=== PATIENT | female | born 1955 | race Caucasian/White ===

== ENCOUNTER 2019-04-27 22:50 | Inpatient (IN) | payer MEDICAID, SELFPAY ==
[2019-04-27 22:50] VITALS: BP 136/94; PULSE 90; RESP 16; TEMP 36.5; O2SAT 98; BMI 17.9
--- NOTE | 2019-04-27 23:07 | CT_ITS ---
We are attempting to reach an attending provider to discuss findings. An addendum with communication details will be sent when the communication is complete. HISTORY: ABD PAIN, N/V TECHNIQUE: Helically acquired images were obtained of the abdomen and pelvis following the intravenous administration of 100 ml of Isovue 300 Iodinated contrast. 2D reformats. Oralcontrast was administered. A radiation dose optimization technique was used for this scan. COMPARISON: None FINDINGS: # of images incl. paperwork: 342 LUNG BASES: Groundglass opacity with evidence of lung destruction, interstitial prominence, and basilar air space disease left greater than right. It is also present within the lingula. The distal esophagus is distended with oral contrast and gas. Small hiatal hernia CT abdomen: There are only 4 nonrib-bearing lumbar vertebral bodies. The lowest thoracic ribs have tiny central ribs. There may be some mild lumbarization of the S1 vertebral body. The gallbladder has been resected. Intra-and extrahepatic biliary ductal dilatation. Liver, spleen, pancreas, and adrenal glands, are normal. There is a calcification medially within both left and right kidneys without hydronephrosis. In this patient with severe calcific atherosclerotic plaque within the abdominal aorta I believe these calcifications are likely arterial and not urothelial.. The aorta is severely disease with circumferential calcific plaque, without camelia aneurysm or dissection. CT pelvis: Pelvic ascites is present. The the uterus is not enlarged. The appendix is not dilated. It does contain some appendicoliths. Series 2 image 78. The bladder is normal. Abnormal air-fluid levels and distention of small bowel. There is disease within the terminal ileum. Some of the distal small bowel loops, however, are not as distended as the more proximal small bowel loops. I cannot perceived the transition point. There is liquid gas and stool within the sigmoid colon and rectum. There is stool through most of the rectum. The transition between distended fluid-filled loops of small bowel, nondistended small bowel with some bowel wall thickening is perhaps best perceived on the coronal series, series 601, image 54 this corresponds to right around series 2, image 76. CT/Abdomen/Pelvis WITH Contrast IMPRESSION: Evidence for at least a partial distal small bowel obstruction. I can find the transition point, but I cannot define an etiology for the transition. Distended stomach with oral contrast and gas refluxing through a small hiatal hernia into the esophagus with distention of the esophagus with contrast and gas suggestive of reflux disease. Severe atherosclerotic disease. Basilar lung disease with interstitial prominence, likely interstitial pulmonary edema, but possibly more than just atelectasis and edema, could be some basilar pneumonia. Individualized dose optimization techniques were used for this CT. at 0218 Reported and signed by: Silviano Thorpe MD Electronically Signed: Silviano Thorpe MD at 2:17 EDT Tel , Service support ,
--- NOTE | 2019-04-27 23:08 | ED.VIS.GEN ---
History of Present Illness Chief Complaint: Abd Pain Narrative: This patient is a 64-year-old female who presents with abdominal pain. She initially developed nausea and vomiting about 4 PM. She reports her vomiting is severe. This is nonbloody. She then began to develop right-sided abdominal pain around 8:30 PM. Her pain is now diffuse but is worse in the mid right abdomen. She describes this as squeezing. She reports her pain is severe. No diarrhea. No urinary symptoms. She does report sweats. No history of prior similar symptoms and no recent illness. She has had a prior cholecystectomy. Past Medical History - Allergies and Home Meds Allergies/Adverse Reactions: Allergies codeine Allergy (Verified 04/27/19 22:52) Anaphylaxis Penicillins [PCN] Allergy (Verified 04/27/19 22:52) Anaphylaxis Past Medical History: - - COPD, history of TIA, hypertension, hyperlipidemia, gastroesophageal reflux Surgical History: cholecystectomy Smoking Status: Current every day smoker Review of Systems All systems negative except as indicated Gastrointestinal: Reports: Abdominal pain, Nausea, Vomiting. Denies: Diarrhea, Constipation Physical Exam Vital Signs/Narrative: Vital Signs Temp Pulse Resp BP Pulse Ox 04/27/19 22:50 97.7 F L 90 16 136/94 H 98 Head: Normocephalic Eyes: EOMI ENT: Moist mucous membranes Neck: Supple Cardiovascular: Regular rate, Regular rhythm Respiratory: No distress, CTA bilaterally Abdomen: Soft, Nondistended, - - Patient has diffuse abdominal tenderness but this is worse when she has no guarding she has no rebound her pain is above McBurney's point. Negative for: Nontender Neurological: Alert Psychological: Normal affect Diagnostic/Tx/Re-eval - Medical Decision Making Patient was treated with IV fluids, morphine, Zofran. On reevaluation her abdomen remains soft. Her pain is resolved except with palpation. She has had no vomiting while here and her nausea is resolved. Labs are notable for white count of 15.7 and hemoglobin is elevated she is likely dehydrated/hemoconcentrated. Sodium is 128. CT of the abdomen and pelvis shows a distal small bowel obstruction with focal transition point without clear etiology. On my review of images chronic does appear distended. Patient will be given an aerosolized lidocaine treatment and an NG tube will be placed. I did speak to surgery Dr. Quach who will see the patient in consultation and spoke to the hospitalist Dr. Wright who agrees to admit. ED Disposition - Plan for ED Patient: Diagnosis: Small bowel obstruction
[2019-04-27] MEDS: 0.9% Normal Saline 1,000 ML 1000 ML IV (23:29)
[2019-04-27] MEDS: Ondansetron 4 MG/2 ML Vial IV (23:30)
[2019-04-27] MEDS: Morphine 4 MG/ML Syringe IV (23:30)
[2019-04-27 23:34] LABS: ALB/GLOB Ratio 0.8 RATIO (0.9-2.4); AST(SGOT) 23 U/L (15-37); Alanine Aminotransfer ALT/SGPT 27 U/L (13-56); Albumin, Serum 4.5 g/dL (3.2-5.0); Alkaline Phosphatase 151 U/L (45-117); Anion Gap 14 (5-15); BUN 9 mg/dL (7-18); BUN/Creat Ratio 7.3 RATIO (10-20); Calcium,Total 11.1 mg/dL (8.5-10.1); Chloride 89 mmol/L (98-107); Creatinine, Serum 1.23 mg/dL (0.55-1.02); EST Glomerular Filtration Rate 47 mL/min (>60); Est Glom Filt Rate - Afr Amer 57 mL/min (>60); Estimated Creatinine Clearance 30.84 ml/min; Globulin 5.9 g/dL (2.2-4.2); Glucose 169 mg/dL (74-106); Lipase 87 U/L (73-393); Potassium 4.5 mmol/L (3.5-5.1); Protein, Total 10.4 g/dL (6.4-8.2); Sodium Level 128 mmol/L (136-145)
[2019-04-27 23:36] LABS: Absolute Lymphocyte Count 1.22 X10^3/ul (0.83-4.51); Absolute Neutrophil Count 13.8 X10^3/uL (2.0-7.7); Basophil# 0.03 X10^3/uL; Basophil% 0.2 % (0-1); Eosinophil# 0.01 X10^3/uL; Eosinophils% 0.1 % (0-5); Hematocrit 52.2 % (37-47); Lymphocyte # 1.22 X10^3/ul (4.0); Lymphocyte % 7.8 % (19-41); Mean Corp Hgb Conc 35.4 g/gl (32-36); Mean Corpuscular Hgb 30.9 pg (27.0-32.0); Mean Corpuscular Volume 87.3 fL (81-99); Mean Platelet Vol. 9.6 fl (6.2-12.0); Monocyte# 0.62 X10^3/uL; Neutrophil # 13.76 X10^3/uL (2.7-7.7); Neutrophil % 87.6 % (47-70); Platelet Count 424 K/mm3 (150-450); RBC Distribution Width CV 13.2 % (11.6-14.6); RBC Distribution Width SD 41.8 fl (35.1-43.9); Red Blood Count 5.98 M/mm3 (4.2-5.4); White Blood Count 15.7 K/mm3 (4.4-11.0)
[2019-04-27 23:43] LABS: Hemoglobin 18.5 g/dl (12.0-15.0); POSITIVE COUNT NO; POSITIVE DIFFERENTIAL NO; POSITIVE MORPHOLOGY NO
[2019-04-28] VITALS (11 sets, daily range): BP systolic 114–131; BP diastolic 57–75; PULSE 64–90; RESP 16–18; TEMP 36.4–37.1; O2SAT 81–99; BMI 19.8
[2019-04-28 02:20] LABS: Bacteria 0 SEEN /hpf (None Seen); Mucous, Urine 0 SEEN /hpf (<or=2+); Red Blood Cells-Urine 0 SEEN /hpf (0-5)
--- NOTE | 2019-04-28 02:25 | RAD_ITS ---
HISTORY: NG tube placement. This study was the first of 2 images obtained. Comparison studies a CT scan from a little bit early in the morning. Findings: The nasogastric tube tip is within stomach. The proximal sidehole is within the distal esophagus. Both kidneys are excreting contrast. Urinary bladder is beginning to fill. Cholecystectomy clips. Distention of small bowel with gas. RAD/Abdomen Single View (Portable) IMPRESSION: This is the first of 2 images. This image demonstrates the proximal most sidehole within the distal esophagus. at 0323 Reported and signed by: Silviano Thorpe MD Electronically Signed: Silviano Thorpe MD at 3:22 EDT Tel , Service support ,
--- NOTE | 2019-04-28 02:25 | PCM.HP.STD ---
Problem List (1) Small bowel obstruction Status: Acute (2) SHIV (acute kidney injury) Status: Acute (3) Hyponatremia Status: Acute (4) HTN (hypertension) Status: Chronic Qualifiers: Hypertension type: essential hypertension Qualified Code(s): I10 - Essential (primary) hypertension (5) HLD (hyperlipidemia) Status: Chronic Qualifiers: Hyperlipidemia type: unspecified Qualified Code(s): E78.5 - Hyperlipidemia, unspecified (6) CHF (congestive heart failure) Status: Chronic Qualifiers: Heart failure type: unspecified Heart failure chronicity: chronic Qualified Code(s): I50.9 - Heart failure, unspecified (7) COPD (chronic obstructive pulmonary disease) Status: Chronic Qualifiers: COPD type: unspecified COPD Qualified Code(s): J44.9 - Chronic obstructive pulmonary disease, unspecified (8) Tobacco use Status: Chronic (9) TIA (transient ischemic attack) Status: Chronic History of Present Illness Date of Admission: 04/28/19 Chief Complaint: Abdominal pain, nausea, emesis The patient is a 64 y/o F w/ PMHx: TIA, CHF Unclear type, Chronic COPD, Tobacco use, HTN, HLD who presents to the [facility] ED on 04/28/19 with history of onset nausea, emesis starting at 4 pm with onset then severe 10/10 sharp abdominal pain, specifically mid right abdomen, not improving prompting ED presentation. Work-up in the ED included T 97.7, heart rate 90, BP 136/94, respiratory rate 16, 90% on room air, CBC with W BC 15.7, hemoglobin 18.5, platelet 424 with left shift, CMP with sodium 128, chloride 89, BUN/creatinine 9/1.23, glucose 169, calcium 11.1, alk phos 151, lipase 87, urinalysis not marked appearing, CT abdomen pelvis with evidence of a partial distal small bowel obstruction with a transition point with a distended stomach with oral contrast and gas refluxing through a small hiatal hernia and the esophagus with distention of the esophagus with contrast and gas suggestive of also reflux disease, severe atherosclerotic disease, basilar lung disease with interstitial prominence likely atelectasis given patient presentation with only abdominal complaints. In the ED patient administered inhaled lidocaine with placement of NG tube, morphine 4 mg IV x1, Zofran 4 mg IV x1 in addition to normal saline. General surgeon was consulted and discussed case per ED physician with agreement of placement of NG tube and admission for further evaluation and treatment. Past Medical History Past Medical History (Chronic Problems): Chronic Problems HTN (hypertension) (Chronic) HLD (hyperlipidemia) (Chronic) CHF (congestive heart failure) (Chronic) COPD (chronic obstructive pulmonary disease) (Chronic) Tobacco use (Chronic) TIA (transient ischemic attack) (Chronic) Allergies codeine Allergy (Verified 04/27/19 22:52) Anaphylaxis Penicillins [PCN] Allergy (Verified 04/27/19 22:52) Anaphylaxis Surgical History: cholecystectomy, - - Cholecystectomy, BLTL. Psychiatric History: No pertinent psych hx BURSAR History: No pertinent BURSAR history Lives: Spouse/ Significant Other - Lives with her and grandson. Smoking Status: Current every day smoker - 1/2 pack/day cigarette tobacco usage. Tobacco Use: Cigarettes Alcohol: None Drugs: None - *Family History Maternal History Items: - - Patient notes a maternal family history of breast cancer. Paternal History Items: - - Patient notes a paternal family history of heart disease, of an [place]. Review of Systems Constitutional: Reports: Anorexia, Malaise, Weakness, Fatigue. Denies: Chills, Fever, Weight Change HEENT: Denies: Head Aches, Sinus Congestion, Sinus Drainage Cardiovascular: Denies: Chest Pain, Palpitations Respiratory: Reports: Shortness of breath upon exertion. Denies: Cough, Shortness of breath at rest, Sputum production Gastrointestinal: Reports: Abdominal Pain, Nausea, Vomiting Genitourinary: Denies: Dysuria Musculoskeletal: Denies: Joint Pain, Joint Tenderness Skin: Denies: Rash, Wounds Neurological: Denies: Numbness, Tingling, Focal weakness Psychiatric: Denies: Anxiety, Depression, Homicidal Ideations, Suicidal Ideations Hematologic/ Lymphatic: Denies: Easy Bruising, Easy Bleeding VTE Information - Inpt Only VTE Present on Admission: No VTE Mechan Device Prophylaxis: SCD's VTE Pharm Prophylaxis ordered?: Yes Patient Problems: Active and Suspected Problems Small bowel obstruction (Acute) SHIV (acute kidney injury) (Acute) Hyponatremia (Acute) Subjective: Seated upright in ED bed, fatigued appearance, recently completed breathing treatment. Objective: Physical Examination: General: awake, alert, oriented x 3 and cooperative, seated upright in bed in no apparent distress, notes still ongoing mid to right upper quadrant discomfort but improved since initial presentation, only with palpation. Skin: normal color, turgor, no icterus, cyanosis. HEENT: AT/NC, EOMI, PERRLA, dry MM, no carotid bruits or JVD noted. Lungs: Diminished breath sounds throughout, greater bases, appropriate moderate effort, no rales, ronchi or wheezing. Heart: Regular rate and rhythm; no gallop, rub audible. Abdomen: soft, notable mid and right upper quadrant primarily abdominal discomfort, no rebound or specific guarding, not markedly distended, diminished bowel sounds, difficult to assess HSM secondary to acute presentation. Extremities: no cyanosis, clubbing, or edema. Neurological: patient awake, alert, oriented x 3; cognitive function intact; pupils equally reactive to light and accomodation; cranial nerves II-XII grossly normal, moving all 4 extremities, no focal deficits, strength moderately to severely global degree secondary to acute presentation. Psychiatric: affect appears fatigued, no acute evidence of depressive or anxiety feelings. - Physical Exam Vital Signs Temp Pulse Resp BP Pulse Ox 97.7 F L 90 16 136/94 H 98 04/27/19 22:50 04/27/19 22:50 04/27/19 22:50 04/27/19 22:50 04/27/19 22:50 Oxygen Delivery Method Room Air Weight: 92 lb Body Mass Index (BMI) 17.9 Laboratory Tests Past 24 Hrs 04/27/19 04/27/19 04/28/19 23:00 23:00 02:15 WBC 15.7 H RBC 5.98 H Hgb 18.5 H* Hct 52.2 H MCV 87.3 MCH 30.9 MCHC 35.4 RDW 13.2 RDW Differential 41.8 Plt Count 424 MPV 9.6 Immature Gran % (Auto) 0.300 Neut % (Auto) 87.6 H Lymph % (Auto) 7.8 L [place] % (Auto) 4.0 Eos % (Auto) 0.1 Baso % (Auto) 0.2 Absolute Neuts (auto) 13.8 H Absolute Lymphs (auto) 1.22 Total Counted Not Reportable Diff Path Review May foll Sodium 128 L Potassium 4.5 Chloride 89 L Carbon Dioxide 25.0 Anion Gap 14 BUN 9 Creatinine 1.23 H Estim Creat Clear Calc 30.84 Est GFR (MDRD) Af Amer 57 L Est GFR (MDRD) Non-Af 47 L BUN/Creatinine Ratio 7.3 L Glucose 169 H Calcium 11.1 H Total Bilirubin 0.50 AST 23 ALT 27 Alkaline Phosphatase 151 H Total Protein 10.4 H Albumin 4.5 Globulin 5.9 H Albumin/Globulin Ratio 0.8 L Lipase 87 Urine Color Pending Urine Clarity Pending Urine pH Pending Ur Specific [place] Pending Urine Protein Pending Urine Glucose (UA) Pending Urine Ketones Pending Urine Occult Blood Pending Urine Nitrite Pending Urine Bilirubin Pending Urine Urobilinogen Pending Ur Leukocyte Esterase Pending Urine RBC Pending Urine WBC Pending Ur Squamous Epith Cells Pending Urine Bacteria Pending Urine Mucus Pending Assessment/Plan All Active Problems Small bowel obstruction (Acute) SHIV (acute kidney injury) (Acute) Hyponatremia (Acute) The patient is a 64 y/o F w/ PMHx: TIA, CHF Unclear type, Chronic COPD, Tobacco use, HTN, HLD who presents to the [facility] ED on 04/28/19 with history of onset nausea, emesis starting at 4 pm with onset then abdominal pain, specifically mid right abdomen, not improving prompting ED presentation. (1) Abdominal pain, nausea, emesis w/ SBO: In the ED work-up included CT A/P w/ evidence SBO, CBC w/ elevated WBC with evidence hemoconcentration secondary to dehydration. Will admit to MS, maintain on IVFs, continue NGT to suction, strict I&Os, IV pain/anti-emetics PRN, serial KUB as needed to montior bowel function, Famotidine IV, maintain NPO on bowel rest. General surgery Dr. Quach consulted. (2) Hyponatremia, hypovolemic: Admission sodium 128, poor oral intake with nausea and emesis secondary to #1, continue aggressive hydration, repeat BMP in a.m. (3) Suspected Acute kidney injury: Secondary to acute presentation, #1. Admission BUN/Cr 07/24.23, unclear baseline but given presentation, hyponatremia suspected acute, repeat BMP in AM. If no improvement would plan FeNa assessment. (4) Hyperglycemia: Admission glucose 169, possibly stress response, continue to monitor. (5) Hypercalcemia: Admission Ca 11.1, given presentation with dehydration will continue to aggressively hydrate and repeat BMP in AM, if remains elevated will obtain ICa. (6) Chronic COPD: ATC duonebs, PRN albuterol, HOB, IS parameters. (7) Tobacco Abuse: Encouraged cessation, inpatient consultation per RT, NR if desired. (8) Hypertension: Hold oral regimens, PRN hydralazine. (9) CHF, Unclear type: Holding oral regimens, resume once oral intake allowed including BP regimen, HLD regimen, ASA. (10) Hx TIA: Holding oral regimens, resume once oral intake allowed including BP regimen, HLD regimen, ASA. Elevated BS, trend and further evaluate if remains elevated, possibly secondary to strain. (11) Hyperlipidemia: Holding oral regimens. (12) GERD: IV Famotidine. (13) DVT prophylaxis: SCDs, renally dosed lovenox. Code Visit Inpatient E&M: 17708 Init Hosp L3
[2019-04-28 02:27] LABS: Color, Urine Yellow (Yellow); Glucose, Dipstick Normal (Normal); Ketone-Dipstick Negative (Negative); Leukocyte Esterase-Dipstick 25 /ul (Negative); Nitrite-Dipstick Negative (Negative); Occult Blood-Urine 10 /ul (Negative); Protein-Dipstick 100 mg/dl (Negative); Urine Bilirubin Dipstick Negative (Negative); Urine Clarity Clear (Clear); Urine Urobilinogen Normal (Normal)
[2019-04-28 02:28] LABS: Squamous Epithelial Cells - UA 0-5 SEEN /hpf (5-10); White Blood Cells 0-5 SEEN /hpf (0-5)
[2019-04-28] MEDS: Lidocaine 4% 5 ML Ampul 2 ML INHALATION (02:34)
--- NOTE | 2019-04-28 03:02 | RAD_ITS ---
HISTORY: NG tube placement. Most recent comparison study is from minutes earlier. Before that there is a CT scan of the abdomen and pelvis from just over an hour earlier. Findings: The nasogastric tube has been advanced. The tip of the tube proximal sidehole about under the diaphragm, likely within the gastric cardia. Both kidneys continue to excrete contrast to nondilated systems. Surgical clips are present within the gallbladder fossa. Distended loops of small bowel remain. Surgical clips are present within the pelvis. The urinary bladder is distended with excreted contrast. Basilar fibrotic lung disease persists. The heart is not enlarged. RAD/Abdomen Single View IMPRESSION: Advancement of esophagogastric tube so that now but the tip in the proximal sidehole are below the diaphragm, likely within the stomach. at 0322 Reported and signed by: Silviano Thorpe MD Electronically Signed: Silviano Thorpe MD at 3:21 EDT Tel , Service support ,
[2019-04-28] MEDS: 0.9% Normal Saline 1,000 ML 125 ML IV ×2 (04:42→13:22)
[2019-04-28] MEDS: 0.9% NaCl Peripheral Flush Adult/Peds IV ×2 (05:32→05:57)
[2019-04-28] MEDS: Ondansetron 4 MG/2 ML Vial IV (05:55)
[2019-04-28] MEDS: Morphine 2 MG/ML Syringe IV ×4 (05:56→20:20)
--- NOTE | 2019-04-28 06:00 | CON.PCM_ITS ---
Problem List (1) Small bowel obstruction Status: Acute Reason for Consult Date of Consultation: 04/28/19 History of Present Illness: The patient is a 64 year old F who I have been asked to see by Dr. Brittani Wright via her emergency room admission. Written compromise surgical consult and recommendations regarding acute small bowel obstruction will be left in the electronic records. This is a 64-year-old female. She had acute onset of abdominal pain nausea and vomiting yesterday at 4 PM. She presented to the emergency room. White blood cell count was elevated to 15.7 with a markedly elevated hemoglobin of 18.5 hematocrit 52.2 platelet count 424,000. 87% neutrophils. Her graph she was hyponatremic with a sodium of only 128. Chloride 89. Potassium 4.5. BUN was 9 and creatinine 1.23. Calcium elevated 11.1. Glucose elevated at 169. Ocular phosphatase 151. Total protein 10.4. Her urine had a specific gravity 1.01. She had a CT scan performed. There was felt to be evidence for at least a partial distal small bowel obstruction. Transition point is felt to been identified between distended fluid-filled loops of small bowel and nondistended small bowel with some small bowel wall thickening. Etiology not clear. There is distended stomach and distention of the esophagus. There is severe atherosclerotic disease. In addition there is bibasilar lung disease with interstitial prominence likely interstitial pulmonary edema. Possible bibasilar pneumonia. The patient states that she has recently moved to this area. She states that June 2018 she was hospitalized in [place] for acute congestive heart failure and pulmonary edema. She said she has had at least 2 heart catheterizations. She states that she does not have any stents in place but that she did have angioplasty. She is a lifelong cigarette smoker and she continues to smoke cigarettes. She states that she has both heart and lung disease. She requires chronic oxygen at night daily Currently she states that her pain is improved over yesterday but that she is still feeling nauseated. Apparently there was difficulties actually getting the NG tube to function due to wall suction device malfunctioning so it sounds like she has not been on adequate NG tube suction since her admission to the floor. Abdominal x-ray taken at 3 AM showed distended loops of small bowel remaining. Surgical clips present within the pelvis. Past Medical History Past Medical History (Chronic Problems): Chronic Problems HTN (hypertension) (Chronic) HLD (hyperlipidemia) (Chronic) CHF (congestive heart failure) (Chronic) COPD (chronic obstructive pulmonary disease) (Chronic) Tobacco use (Chronic) TIA (transient ischemic attack) (Chronic) Allergies codeine Allergy (Verified 04/27/19 22:52) Anaphylaxis Penicillins [PCN] Allergy (Verified 04/27/19 22:52) Anaphylaxis Surgical History: cholecystectomy, - - Cholecystectomy, BLTL. 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 Smoking Status: Current every day smoker Tobacco Use: Cigarettes Alcohol: None Drugs: None - *Family History Maternal History Items: - - Patient notes a maternal family history of breast cancer. Paternal History Items: - - Patient notes a paternal family history of heart disease, of an [place]. Review of Systems Constitutional: Denies: Anorexia HEENT: Denies: Difficulty Swallowing Cardiovascular: Denies: Chest Pain Respiratory: Reports: Shortness of Breath Gastrointestinal: Reports: Abdominal Pain, - - Last flatus was yesterday midday. Denies: Hematochezia, Melena Endocrine: Denies: Change in Body Habitus Patient Problems: Active and Suspected Problems Small bowel obstruction (Acute) SHIV (acute kidney injury) (Acute) Hyponatremia (Acute) Small bowel obstruction (Acute) - Physical Exam General: Alert, Oriented x3, Cooperative, No apparent distress, - - Emesis bag is closed by Patient appears to be far older than stated age Neck: Supple Lungs: Clear to auscultation, - - Nasal prong oxygen in place Cardiovascular: Regular rate, Regular Rhythm Abdomen: Soft - Minimal discomfort to palpation right mid abdomen, infrequent nonspecific bowel sounds, no focal mass, no rebound, no guarding Extremities: No Calf Tenderness Psych/Mental Status: Normal Affect Vital Signs Temp Pulse Resp BP Pulse Ox 98.3 F 79 16 121/75 H 96 04/28/19 04:15 04/28/19 04:15 04/28/19 04:15 04/28/19 04:15 04/28/19 04:15 Oxygen Flow Rate (L/min) 3 Oxygen Delivery Method Room Air Weight: 101 lb 3.075 oz Body Mass Index (BMI) 19.8 Laboratory Tests Past 24 Hrs 04/27/19 04/27/19 04/28/19 23:00 23:00 02:15 WBC 15.7 H RBC 5.98 H Hgb 18.5 H* Hct 52.2 H MCV 87.3 MCH 30.9 MCHC 35.4 RDW 13.2 RDW Differential 41.8 Plt Count 424 MPV 9.6 Immature Gran % (Auto) 0.300 Neut % (Auto) 87.6 H Lymph % (Auto) 7.8 L [place] % (Auto) 4.0 Eos % (Auto) 0.1 Baso % (Auto) 0.2 Absolute Neuts (auto) 13.8 H Absolute Lymphs (auto) 1.22 Total Counted Not Reportable Diff Path Review May foll Sodium 128 L Potassium 4.5 Chloride 89 L Carbon Dioxide 25.0 Anion Gap 14 BUN 9 Creatinine 1.23 H Estim Creat Clear Calc 30.84 Est GFR (MDRD) Af Amer 57 L Est GFR (MDRD) Non-Af 47 L BUN/Creatinine Ratio 7.3 L Glucose 169 H Calcium 11.1 H Total Bilirubin 0.50 AST 23 ALT 27 Alkaline Phosphatase 151 H Total Protein 10.4 H Albumin 4.5 Globulin 5.9 H Albumin/Globulin Ratio 0.8 L Lipase 87 Urine Color Yellow Urine Clarity Clear Urine pH 6.0 Ur Specific [place] 1.010 Urine Protein 100 H Urine Glucose (UA) Normal Urine Ketones Negative Urine Occult Blood 10 H Urine Nitrite Negative Urine Bilirubin Negative Urine Urobilinogen Normal Ur Leukocyte Esterase 25 H Urine RBC 0 SEEN Urine WBC 0-5 SEEN Ur Squamous Epith Cells 0-5 SEEN Urine Bacteria 0 SEEN Urine Mucus 0 SEEN Assessment/Plan All Active Problems Small bowel obstruction (Acute) SHIV (acute kidney injury) (Acute) Hyponatremia (Acute) Small bowel obstruction (Acute) 64-year-old female with findings consistent with small bowel obstruction. She has had a previous lap scopic cholecystectomy and a previous tubal ligation. Likely adhesive disease. Unfortunately her cardiopulmonary disease places her at significantly increased risk. She is not able to describe for me her episode of hospitalization with severe congestive heart failure and fluid overload. The patient does not appear to require surgical intervention at this immediate moment but I am not sure that this is going to solve with conservative management. Again it is of note that the NG tube has not been functioning since her presentation to the floor. We will encourage mobilization. We will consider Gastrografin per the NG tube. Very careful clinical follow-up. Electrolyte correction is being pursued. Markedly hyponatremic. Markedly hemoconcentrated likely in large part due to her chronic pulmonary disease and ongoing tobacco use. She has had notably increased risk for DVT and PE. Use of incentive spirometer mobilization strongly encouraged. We will follow with you. Rafael Quach M.D., F.A.C.S.
[2019-04-28 06:27] LABS: Absolute Lymphocyte Count 1.34 X10^3/ul (0.83-4.51); Absolute Neutrophil Count 8.5 X10^3/uL (2.0-7.7); Basophil# 0.02 X10^3/uL; Basophil% 0.2 % (0-1); Hematocrit 42.6 % (37-47); Lymphocyte # 1.34 X10^3/ul (4.0); Lymphocyte % 12.5 % (19-41); Mean Corp Hgb Conc 35.2 g/gl (32-36); Mean Corpuscular Hgb 30.2 pg (27.0-32.0); Mean Corpuscular Volume 85.7 fL (81-99); Mean Platelet Vol. 9.5 fl (6.2-12.0); Monocyte# 0.78 X10^3/uL; Monocyte% 7.3 % (0-10); Neutrophil % 79.6 % (47-70); Platelet Count 376 K/mm3 (150-450); RBC Distribution Width CV 13.1 % (11.6-14.6); RBC Distribution Width SD 40.2 fl (35.1-43.9); Red Blood Count 4.97 M/mm3 (4.2-5.4); White Blood Count 10.7 K/mm3 (4.4-11.0)
[2019-04-28 06:30] LABS: POSITIVE COUNT NO; POSITIVE DIFFERENTIAL NO; POSITIVE MORPHOLOGY NO
[2019-04-28] MEDS: Ipratropium/Albuterol Sulfate 3 ML AMPUL.NEB INHALATION ×3 (06:52→19:00)
[2019-04-28 07:03] LABS: ALB/GLOB Ratio 0.8 RATIO (0.9-2.4); AST(SGOT) 19 U/L (15-37); Alanine Aminotransfer ALT/SGPT 19 U/L (13-56); Albumin, Serum 3.3 g/dL (3.2-5.0); Alkaline Phosphatase 109 U/L (45-117); Anion Gap 10 (5-15); BUN 9 mg/dL (7-18); BUN/Creat Ratio 11.4 RATIO (10-20); Calcium,Total 8.9 mg/dL (8.5-10.1); Chloride 99 mmol/L (98-107); Creatinine, Serum 0.79 mg/dL (0.55-1.02); EST Glomerular Filtration Rate 78 mL/min (>60); Est Glom Filt Rate - Afr Amer 95 mL/min (>60); Estimated Creatinine Clearance 52.36 ml/min; Globulin 4.3 g/dL (2.2-4.2); Glucose 105 mg/dL (74-106); Potassium 3.7 mmol/L (3.5-5.1); Protein, Total 7.6 g/dL (6.4-8.2); Sodium Level 134 mmol/L (136-145)
[2019-04-28 07:34] LABS: Lactic Acid 0.5 mmol/L (0.4-2.0)
--- NOTE | 2019-04-28 08:00 | RAD_ITS ---
STUDY: X-RAY - ABDOMEN/PELVIS REASON FOR EXAM: Female, 64 years old. History of small bowel obstruction. TECHNIQUE: Single AP view of the abdomen / pelvis. COMPARISON: Comparison is made with prior study dated April 28, 2019 at 2:57 AM. FINDINGS: A nasogastric tube is seen with the tip in the body of the stomach. Moderate amount of fecal material is seen throughout the colon. Mildly dilated small bowel loop in the central abdomen. Contrast is seen within a distended urinary bladder. This evidence of prior tubal ligation. Status post cholecystectomy. Normal soft tissue structures. Normal visualized osseous structures. RAD/Abdomen Single View IMPRESSION: Moderate amount of fecal material is seen throughout the colon. Single mildly dilated small bowel loop in the central abdomen. The tip of the nasogastric tube is in the body of the stomach. Electronically Signed: Bar Martin, at 8:38 EDT , Service support ,
--- NOTE | 2019-04-28 09:04 | PCM.PN.BLA ---
Progress Note Patient is a 64-year-old lady with past medical history significant for previous abdominal surgery including laparoscopic cholecystectomy as well as previous tubal ligation who presented with abdominal pain. CT of the abdomen and pelvis obtained on admission demonstrated evidence of partial small bowel obstruction with transition point. Patient admitted to regular nursing floor subsequently with consultation placed to general surgery 1. Partial small bowel obstruction suspected to be secondary to adhesions patient be managed conservatively with bowel rest NG tube to suction fluids pain meds with consultation placed to Dr. Quach with general surgery 2. Hypertension-blood pressure controlled, home medications continued with dose adjustment as needed 3. Dyslipidemia 4. COPD 5. Previous history of TIA 6. Congestive heart failure unspecified Patient has been seen and examined her initial assessment including history and physical, diagnostic data as well as management orders reviewed will follow.
--- NOTE | 2019-04-28 12:00 | CASEMGMT ---
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 RN JOSE DE JESUS introduced self and role at [facility]. Pt voices understanding and consents to assessment at this time. Pt resting in bed in no distress at this time. and daughter @ bedside. Pt is A/O at this time and answers all questions appropriately. Care providers, pharmacy, and demographics verified/updated at this time. PCP: Harley Mathews Specialists: Was seeing Dr Shad Ayala--cardiology, [place] Fernandez--GIAlexandre PA--pulmonology Preferred Pharmacy: [facility] Insurance: [employer] Prescription Benefit: Yes Living Will/HPOA: does not have LW, but does have HCPOA, who is her daughter, Haylie Feliz. Haylie states she brought the paperwork in this admission and they made copies already and gave her back the original. LNOK: , Daughter: Haylie Feliz. Living Arrangements: Lives with her and grandson lives with them. Independent with personal ADL's. Daughter assists w/appts and meds. Transportation: or daughter, Haylie DME: has the following DME: Oxygen @ 2 L/M N/C @ HS only. Has concentrator only. Got it through [facility] in [place]: [phone]. Has nebulizer. Pt states no need for further DME at this time. HHC/SNF: No history of either. Denies needs. No needs identified. Pt wishes to return home and states has no concerns with going home at time of discharge. Pt states does smoke and initially stated she was not interested in smoking cessation info/program. Daughter, Haylie, inquired about/requested information and stated, I want her to quit. Her and my dad both. Given Tobacco Cessation Program Rac Card. Pt states she does not drink ETOH. CM to follow for any discharge planning/needs. Pt voices no further concerns/needs at this time. Advised pt to ask for CM if any further questions/concerns/needs arise. Voices understanding. PLAN: Home w/spousal and daughter's support and discharge plans in place. Wellington DUARTE RN, CM
--- NOTE | 2019-04-28 13:42 | NURSING ---
pt left for x ray
--- NOTE | 2019-04-28 14:00 | RAD_ITS ---
CLINICAL HISTORY: Female, 64 years old. Small bowel obstruction PROCEDURE: Small bowel series FLUOROSCOPY TIME (if supplied): ( ) minutes/seconds TECHNIQUE: (Following acquisition of KUB contrast was administered into the stomach through a nasogastric tube old by acquisition of serial images at 0 15, 30, 60 and 120 minutes in the anterior projection) FINDINGS: Preliminary film of the abdomen demonstrates nonspecific bowel pattern. Nasogastric tube is seen with tip in the distal stomach. There are surgical clips in the right upper quadrant and bilaterally in the pelvis. There is contrast within the bladder. Following injection of contrast into the stomach stomach appears to be normal caliber. There is no persistent mucosal filling defect or ulcer crater. Duodenal bulb has normal radiographic appearance without evidence for active ulcer. At 15 and 30 minutes, there is contrast noted within the proximal jejunum which is normal caliber. At 60 minutes, there is contrast filling the small bowel as well as the right colon old which are normal in caliber. There are similar findings seen at 120 minutes.. There are no persistent mucosal filling defects or mass displacement. RAD/Small Bowel Series Only IMPRESSION: Unremarkable small bowel series without evidence for obstructive Electronically Signed: Saud Mcintyre MD at 17:01 EDT , Service support ,
[2019-04-28 15:39] LABS: Pathologist Review Reviewed
[2019-04-28] MEDS: Phenol/Sodium Phenolate 180ML 5 SPRAY MM ×2 (16:29→20:20)
[2019-04-29] VITALS (9 sets, daily range): BP systolic 107–150; BP diastolic 50–68; PULSE 59–84; RESP 16–20; TEMP 36.5–36.7; O2SAT 94–98
[2019-04-29] MEDS: 0.9% Normal Saline 1,000 ML 125 ML IV ×4 (00:07→23:47)
[2019-04-29] MEDS: Phenol/Sodium Phenolate 180ML 5 SPRAY MM (00:08)
[2019-04-29] MEDS: Morphine 2 MG/ML Syringe IV ×3 (03:58→19:50)
[2019-04-29] MEDS: Ondansetron 4 MG/2 ML Vial IV (03:59)
--- NOTE | 2019-04-29 05:55 | RAD_ITS ---
STUDY: X-RAY - ABDOMEN/PELVIS REASON FOR EXAM: Female, 64 years old. Small bowel obstruction. TECHNIQUE: Two AP supine views of the abdomen and pelvis. COMPARISON: CT scan dated April 28, 2019 and small bowel follow-through study dated April 28, 2019. FINDINGS: NG tube at the left upper quadrant in position. Retained oral contrast administration with nonobstructive bowel gas pattern. Surgical clips at the right upper quadrant. Tubal ligation devices. Interstitial lung disease with costophrenic angle blunting. Osseous structures intact. RAD/Abd Inc Decub and/or Erect IMPRESSION: Retained oral contrast without obstructive bowel gas pattern NG tube in position Interstitial lung disease with costophrenic angle blunting Additional postsurgical changes, as above Electronically Signed: Bonifacio Mustafa DO at 12:28 EDT Tel , Service support ,
--- NOTE | 2019-04-29 06:08 | PN.SURG_ITS ---
Patient Problems: Active and Suspected Problems Small bowel obstruction (Acute) SHIV (acute kidney injury) (Acute) Hyponatremia (Acute) Small bowel obstruction (Acute) Subjective: Pt states she still has some right mid abdominal pain but she is having diarrhea now. UGI shows no bowel obstruction with free flow into colon - Physical Exam Abdomen: Bowel Sounds Present, Soft, Non Tender, Non-Distended Vital Signs Temp Pulse Resp BP Pulse Ox 98.1 F 84 18 150/68 H 96 04/29/19 04:18 04/29/19 04:18 04/29/19 04:18 04/29/19 04:18 04/29/19 04:18 Oxygen Flow Rate (L/min) 2 Oxygen Delivery Method Nasal Cannula Weight: 101 lb 3.075 oz Body Mass Index (BMI) 19.8 Intake and Output for Last 24 Hours 04/27/19 04/28/19 04/29/19 23:59 23:59 23:59 Intake Total 1794 / 1794 2007 Output Total 1999 1250 / 1250 Balance -206 / -206 758 / 758 Laboratory Tests Past 24 Hrs 04/27/19 04/28/19 04/28/19 23:00 05:26 05:26 WBC 10.7 RBC 4.97 Hgb 15.0 Hct 42.6 MCV 85.7 MCH 30.2 MCHC 35.2 RDW 13.1 RDW Differential 40.2 Plt Count 376 MPV 9.5 Immature Gran % (Auto) 0.400 Neut % (Auto) 79.6 H Lymph % (Auto) 12.5 L Stark % (Auto) 7.3 Eos % (Auto) 0.0 Baso % (Auto) 0.2 Absolute Neuts (auto) 8.5 H Absolute Lymphs (auto) 1.34 Total Counted Not Reportable Diff Path Review Reviewed Sodium 134 L Potassium 3.7 Chloride 99 Carbon Dioxide 25.0 Anion Gap 10 BUN 9 Creatinine 0.79 Estim Creat Clear Calc 52.36 Est GFR (MDRD) Af Amer 95 Est GFR (MDRD) Non-Af 78 BUN/Creatinine Ratio 11.4 Glucose 105 Lactic Acid Calcium 8.9 Magnesium Total Bilirubin 0.30 AST 19 ALT 19 Alkaline Phosphatase 109 Total Protein 7.6 Albumin 3.3 Globulin 4.3 H Albumin/Globulin Ratio 0.8 L 04/28/19 04/29/19 04/29/19 06:56 05:25 05:25 WBC Pending RBC Pending Hgb Pending Hct Pending MCV Pending MCH Pending MCHC Pending RDW Pending RDW Differential Pending Plt Count Pending MPV Immature Gran % (Auto) Neut % (Auto) Pending Lymph % (Auto) Stark % (Auto) Eos % (Auto) Baso % (Auto) Absolute Neuts (auto) Pending Absolute Lymphs (auto) Total Counted Pending Diff Path Review Sodium Pending Potassium Pending Chloride Pending Carbon Dioxide Pending Anion Gap Pending BUN Pending Creatinine Pending Estim Creat Clear Calc Est GFR (MDRD) Af Amer Pending Est GFR (MDRD) Non-Af Pending BUN/Creatinine Ratio Pending Glucose Pending Lactic Acid 0.5 Calcium Pending Magnesium Pending Total Bilirubin AST ALT Alkaline Phosphatase Total Protein Albumin Globulin Albumin/Globulin Ratio Medical Necessity - Tobacco Use Smoking Status: Current every day smoker Tobacco Use: Cigarettes Assessment/Plan All Active Problems Small bowel obstruction (Acute) SHIV (acute kidney injury) (Acute) Hyponatremia (Acute) Small bowel obstruction (Acute) Good progress Will remove ngt and start p.o. She does not appear to require operative intervention at this time If tolerates po then would be ready for DC
[2019-04-29 06:11] LABS: Absolute Lymphocyte Count 1.03 X10^3/ul (0.83-4.51); Absolute Neutrophil Count 7.1 X10^3/uL (2.0-7.7); Basophil# 0.02 X10^3/uL; Basophil% 0.2 % (0-1); Eosinophil# 0.04 X10^3/uL; Eosinophils% 0.4 % (0-5); Hematocrit 38.7 % (37-47); Hemoglobin 12.9 g/dl (12.0-15.0); Lymphocyte # 1.03 X10^3/ul (4.0); Lymphocyte % 11.5 % (19-41); Mean Corp Hgb Conc 33.3 g/gl (32-36); Mean Platelet Vol. 9.4 fl (6.2-12.0); Monocyte# 0.81 X10^3/uL; Neutrophil # 7.07 X10^3/uL (2.7-7.7); Neutrophil % 78.7 % (47-70); POSITIVE COUNT NO; POSITIVE DIFFERENTIAL NO; POSITIVE MORPHOLOGY NO; Platelet Count 267 K/mm3 (150-450); RBC Distribution Width CV 13.5 % (11.6-14.6); RBC Distribution Width SD 43.7 fl (35.1-43.9)
[2019-04-29 06:16] LABS: Anion Gap 6 (5-15); BUN 7 mg/dL (7-18); BUN/Creat Ratio 11.2 RATIO (10-20); Calcium,Total 8.2 mg/dL (8.5-10.1); Chloride 111 mmol/L (98-107); Creatinine, Serum 0.62 mg/dL (0.55-1.02); EST Glomerular Filtration Rate 103 mL/min (>60); Est Glom Filt Rate - Afr Amer 124 mL/min (>60); Estimated Creatinine Clearance 66.71 ml/min; Glucose 80 mg/dL (74-106); Magnesium 1.8 mg/dL (1.6-2.6); Sodium Level 144 mmol/L (136-145)
[2019-04-29] MEDS: Ipratropium/Albuterol Sulfate 3 ML AMPUL.NEB INHALATION ×3 (06:59→19:12)
--- NOTE | 2019-04-29 07:23 | PCM.PN.HOSP ---
Patient Problems: Active and Suspected Problems Small bowel obstruction (Acute) SHIV (acute kidney injury) (Acute) Hyponatremia (Acute) Small bowel obstruction (Acute) Subjective: Patient is a 64-year-old lady with past medical history significant for previous abdominal surgery including laparoscopic cholecystectomy as well as previous tubal ligation who presented with abdominal pain. CT of the abdomen and pelvis obtained on admission demonstrated evidence of partial small bowel obstruction with transition point. Patient admitted to regular nursing floor subsequently with consultation placed to general surgery 04/29/2019. Patient Gastrografin test performed the day prior did not demonstrate any evidence of bowel obstruction. Patient has subsequently developed diarrhea Objective: GENERAL: cooperative HEENT: Atraumatic; NG tube in place EYES; Anicteric, Normal Conjunctiva NECK; supple, normal thyroid, RESPIRATORY: Diminished to auscultation CARDIOVASCULAR: Regular S1 S2, GI: soft, non-tender, normoactive bowel sounds, : No Renal angle tenderness; EXTREMITIES: No edema, no clubbing, MUSCULOSKELETAL: No Joint Tenderness; NEURO: Awake; no lateralizing signs. SKIN: No Rash PSYCH; Normal affect Vitals/I&O's: Vital Signs Temp Pulse Resp BP Pulse Ox 98.1 F 84 18 150/68 H 96 04/29/19 04:18 04/29/19 04:18 04/29/19 04:18 04/29/19 04:18 04/29/19 04:18 Oxygen Flow Rate (L/min) 2 Oxygen Delivery Method Nasal Cannula Weight: 45.9 kg Body Mass Index (BMI) 19.8 Intake and Output for Last 24 Hours 04/27/19 04/28/19 04/29/19 23:59 23:59 23:59 Intake Total 1794 / 1794 2007 Output Total 1999 1250 / 1250 Balance -206 / -206 758 / 758 Laboratory Results 04/27/19 23:00: Diff Path Review Reviewed 04/28/19 06:56: Lactic Acid 0.5 04/29/19 05:25: WBC 9.0, RBC 4.30, Hgb 12.9, Hct 38.7, MCV 90.0, MCH 30.0, MCHC 33.3, RDW 13.5, RDW Differential 43.7, Plt Count 267, MPV 9.4, Immature Gran % (Auto) 0.200, Neut % (Auto) 78.7 H, Lymph % (Auto) 11.5 L, Tift % (Auto) 9.0, Eos % (Auto) 0.4, Baso % (Auto) 0.2, Absolute Neuts (auto) 7.1, Absolute Lymphs (auto) 1.03, Total Counted Not Reportable 04/29/19 05:25: Sodium 144, Potassium 4.0, Chloride 111 H, Carbon Dioxide 27.0, Anion Gap 6, BUN 7, Creatinine 0.62, Estim Creat Clear Calc 66.71, Est GFR (MDRD) Af Amer 124, Est GFR (MDRD) Non-Af 103, BUN/Creatinine Ratio 11.2, Glucose 80, Calcium 8.2 L, Magnesium 1.8 Current Medications Acetaminophen (Tylenol) 650 mg RECTAL Q4H PRN PRN PRN Reason: fever, pain Albuterol Sulfate (Ventolin Aerosols) 2.5 mg INHALATION Q2H PRN PRN PRN Reason: dyspnea, wheezing Albuterol/Ipratropium (Duoneb) 3 ml INHALATION Q6HWA.RT [facility] Last Admin: 04/29/19 06:59 Dose: 3 ml Dextrose (D50w Syringe) 0 gm IV X1 PRN; Protocol PRN Reason: Hypoglycemia Enoxaparin Sodium (Lovenox) 30 mg SC DAILY@1000 OK Last Admin: 04/28/19 10:18 Dose: Not Given Glucagon () 1 mg IM .X1 PRN PRN Reason: Hypoglycemia Hydralazine HCl (Apresoline Iv) 10 mg IV Q4H PRN PRN PRN Reason: SBP > 160 Sodium Chloride () 1,000 mls @ 125 mls/hr IV .Q8H [facility] Last Admin: 04/29/19 00:07 Dose: 125 mls/hr Famotidine 20 mg/ Sodium (Chloride) 10 mls @ 300 mls/hr IV Q12 [facility] Last Admin: 04/28/19 21:19 Dose: 300 mls/hr Sodium Chloride () 250 mls @ 15 mls/hr IV .[id number] PRN PRN Reason: SALINE FLUSH Morphine Sulfate () 2 - 4 mg IV Q3H PRN PRN PRN Reason: PAIN Last Admin: 04/29/19 03:58 Dose: 2 mg Morphine Sulfate () 2 - 4 mg IV Q3H PRN PRN PRN Reason: PAIN Ondansetron HCl (Zofran) 4 mg IV Q8H PRN PRN PRN Reason: NAUSEA/VOMITING Last Admin: 04/29/19 03:59 Dose: 4 mg Phenol/Menthol (Chloraseptic (Bkc)) 5 spray MM Q2H PRN PRN PRN Reason: SORE THROAT Last Admin: 04/29/19 00:08 Dose: 5 spray Sodium Chloride () 5 - 15 ml IV UD PRN PRN Reason: SALINE FLUSH Last Admin: 04/28/19 05:57 Dose: 10 ml Medical Necessity - Tobacco Use Smoking Status: Current every day smoker Tobacco Use: Cigarettes Assessment/Plan All Active Problems Small bowel obstruction (Acute) SHIV (acute kidney injury) (Acute) Hyponatremia (Acute) Small bowel obstruction (Acute) Patient is a 64-year-old lady with past medical history significant for previous abdominal surgery including laparoscopic cholecystectomy as well as previous tubal ligation who presented with abdominal pain. CT of the abdomen and pelvis obtained on admission demonstrated evidence of partial small bowel obstruction with transition point. Patient admitted to regular nursing floor subsequently with consultation placed to general surgery 1. Partial small bowel obstruction suspected to be secondary to adhesions patient be managed conservatively with bowel rest NG tube to suction fluids pain meds with consultation placed to Dr. uQach with general surgery. ~04/29/2019 patient partial small bowel obstruction did resolve with conservative management plan will be to remove her NG tube this a.m. 2. Hypertension-blood pressure controlled, home medications continued with dose adjustment as needed 3. Dyslipidemia 4. COPD 5. Previous history of TIA 6. Congestive heart failure unspecified Code Visit Inpatient E&M: 41926 Subs Hosp L2
[2019-04-29] MEDS: 0.9% NaCl Peripheral Flush Adult/Peds IV ×2 (10:14→15:54)
[2019-04-29] MEDS: Enoxaparin 30 MG/0.3 ML Syringe SC (10:14)
[2019-04-29] MEDS: Morphine 4 MG/ML Syringe IV (23:29)
[2019-04-30] VITALS (14 sets, daily range): BP systolic 120–163; BP diastolic 50–68; PULSE 65–95; RESP 14–20; TEMP 36.4–37; O2SAT 77–99; BMI 19.8
[2019-04-30] MEDS: Morphine 4 MG/ML Syringe IV ×2 (01:16→06:01)
--- NOTE | 2019-04-30 06:22 | RAD_ITS ---
STUDY: X-RAY - ABDOMEN/PELVIS REASON FOR EXAM: Female, 64 years old. Abdominal distention TECHNIQUE: AP supine and upright views of the abdomen and pelvis. COMPARISON: 04/29/2019 FINDINGS: There is contrast in distended loops of small bowel with air-fluid levels. There is contrast within similar caliber large bowel with air-fluid levels. There is postoperative change in the right abdomen. Since prior study the NG tube is been removed. Increasing interstitial markings in the lung bases when compared to prior study line for differences in technique. RAD/Abd Inc Decub and/or Erect IMPRESSION: Findings consistent with ileus versus partial small bowel obstruction. Postoperative changes right upper quadrant. Lower lobe atelectasis and/or developing infiltrates. Electronically Signed: Katherine Murcia MD at 10:13 EDT Tel , Service support ,
--- NOTE | 2019-04-30 06:23 | PCM.PN.SRG ---
Patient Problems: Active and Suspected Problems Small bowel obstruction (Acute) SHIV (acute kidney injury) (Acute) Hyponatremia (Acute) Small bowel obstruction (Acute) Subjective: pt was doing well till last night when she took sejal sobeida and became distended C/O burping. Abd pain requiring narcotic Still passing flatus, stool has stopped - Physical Exam Abdomen: Soft, Hypoactive Bowel Sounds, Distended - minimally tender Vital Signs Temp Pulse Resp BP Pulse Ox 98.2 F 65 20 H 163/68 H 94 04/30/19 05:45 04/30/19 05:45 04/30/19 05:45 04/30/19 05:45 04/30/19 05:45 Oxygen Flow Rate (L/min) 2 Oxygen Delivery Method Nasal Cannula Weight: 101 lb 3.075 oz Body Mass Index (BMI) 19.8 Intake and Output for Last 24 Hours 04/28/19 04/29/19 04/30/19 23:59 23:59 23:59 Intake Total 1794 / 1794 5362 / 5362 890 / 890 Output Total 1999 1850 / 1850 400 / 400 Balance -206 / -206 3512 / 3512 490 / 490 Medical Necessity - Tobacco Use Smoking Status: Current every day smoker Tobacco Use: Cigarettes Assessment/Plan All Active Problems Small bowel obstruction (Acute) SHIV (acute kidney injury) (Acute) Hyponatremia (Acute) Small bowel obstruction (Acute) Will check labs and AXR Pt may need NGT and may need laparoscopy/laparotomy for possible recurrent SBO
--- NOTE | 2019-04-30 06:31 | NURSING ---
Ambulated hallway two times overnight.
[2019-04-30] MEDS: Ipratropium/Albuterol Sulfate 3 ML AMPUL.NEB INHALATION ×2 (07:08→13:08)
--- NOTE | 2019-04-30 07:25 | PN_ITS ---
Patient Problems: Active and Suspected Problems Small bowel obstruction (Acute) SHIV (acute kidney injury) (Acute) Hyponatremia (Acute) Small bowel obstruction (Acute) Subjective: She was noted to have markedly distended abdomen this a.m. consistent with recurrence of her partial small bowel obstruction. Case discussed with Dr. Cleopatra Quach plans for patient undergo surgical intervention later this afternoon. Objective: GENERAL: cooperative HEENT: Atraumatic; NG tube in place EYES; Anicteric, Normal Conjunctiva NECK; supple, normal thyroid, RESPIRATORY: Diminished to auscultation CARDIOVASCULAR: Regular S1 S2, GI: Distended : No Renal angle tenderness; EXTREMITIES: No edema, no clubbing, MUSCULOSKELETAL: No Joint Tenderness; NEURO: Awake; no lateralizing signs. SKIN: No Rash PSYCH; Normal affect Vitals/I&O's: Vital Signs Temp Pulse Resp BP Pulse Ox 98.2 F 65 20 H 163/68 H 94 04/30/19 05:45 04/30/19 05:45 04/30/19 05:45 04/30/19 05:45 04/30/19 05:45 Oxygen Flow Rate (L/min) 2 Oxygen Delivery Method Nasal Cannula Weight: 45.9 kg Body Mass Index (BMI) 19.8 Intake and Output for Last 24 Hours 04/28/19 04/29/19 04/30/19 23:59 23:59 23:59 Intake Total 1794 / 1794 5362 / 5362 890 / 890 Output Total 1999 / 1999 1850 / 1850 400 / 400 Balance -206 / -206 3512 / 3512 490 / 490 Current Medications Acetaminophen (Tylenol) 650 mg RECTAL Q4H PRN PRN PRN Reason: fever, pain Albuterol Sulfate (Ventolin Aerosols) 2.5 mg INHALATION Q2H PRN PRN PRN Reason: dyspnea, wheezing Albuterol/Ipratropium (Duoneb) 3 ml INHALATION Q6HWA.RT [facility] Last Admin: 04/30/19 07:08 Dose: 3 ml Dextrose (D50w Syringe) 0 gm IV X1 PRN; Protocol PRN Reason: Hypoglycemia Enoxaparin Sodium (Lovenox) 30 mg SC DAILY@1000 OK Last Admin: 04/29/19 10:14 Dose: 30 mg Glucagon () 1 mg IM .X1 PRN PRN Reason: Hypoglycemia Hydralazine HCl (Apresoline Iv) 10 mg IV Q4H PRN PRN PRN Reason: SBP > 160 Sodium Chloride () 1,000 mls @ 125 mls/hr IV .Q8H [place] Last Admin: 04/29/19 23:47 Dose: 125 mls/hr Famotidine 20 mg/ Sodium (Chloride) 10 mls @ 300 mls/hr IV Q12 [place] Last Admin: 04/29/19 23:22 Dose: 300 mls/hr Sodium Chloride () 250 mls @ 15 mls/hr IV .[id number] PRN PRN Reason: SALINE FLUSH Clindamycin Phosphate 900 mg/ (Dextrose) 106 mls @ 75 mls/hr IV PREOP ONE Stop: 04/30/19 08:54 Morphine Sulfate () 2 - 4 mg IV Q3H PRN PRN PRN Reason: PAIN Last Admin: 04/29/19 19:50 Dose: 2 mg Morphine Sulfate () 2 - 4 mg IV Q3H PRN PRN PRN Reason: PAIN Last Admin: 04/30/19 06:01 Dose: 3 mg Ondansetron HCl (Zofran) 4 mg IV Q8H PRN PRN PRN Reason: NAUSEA/VOMITING Last Admin: 04/29/19 03:59 Dose: 4 mg Phenol/Menthol (Chloraseptic (Bkc)) 5 spray MM Q2H PRN PRN PRN Reason: SORE THROAT Last Admin: 04/29/19 00:08 Dose: 5 spray Sodium Chloride () 5 - 15 ml IV UD PRN PRN Reason: SALINE FLUSH Last Admin: 04/29/19 15:54 Dose: 10 ml Medical Necessity - Tobacco Use Smoking Status: Current every day smoker Tobacco Use: Cigarettes Assessment/Plan All Active Problems Small bowel obstruction (Acute) SHIV (acute kidney injury) (Acute) Hyponatremia (Acute) Small bowel obstruction (Acute) Patient is a 64-year-old lady with past medical history significant for previous abdominal surgery including laparoscopic cholecystectomy as well as previous tubal ligation who presented with abdominal pain. CT of the abdomen and pelvis obtained on admission demonstrated evidence of partial small bowel obstruction with transition point. Patient admitted to regular nursing floor subsequently with consultation placed to general surgery 1. Partial small bowel obstruction suspected to be secondary to adhesions patient be managed conservatively with bowel rest NG tube to suction fluids pain meds with consultation placed to Dr. Quach with general surgery. ~04/29/2019 patient partial small bowel obstruction did resolve with conservative management plan will be to remove her NG tube this a.m. ~04/30/2019. Patient was noted to have markedly distended abdomen consistent with recurrent partial small bowel obstruction. Case discussed with with general surgery plan is for patient to undergo surgical intervention 04/30/2019 2. Hypertension-blood pressure controlled, home medications continued with dose adjustment as needed 3. Dyslipidemia: Diet controlled 4. COPD; on aerosol treatment as needed 5. Previous history of TIA. Stable 6. Congestive heart failure unspecified. Stable 7. DVT prophylaxis enoxaparin Code Visit Inpatient E&M: 43080 Subs Hosp L2
[2019-04-30 07:45] LABS: Absolute Lymphocyte Count 1.56 X10^3/ul (0.83-4.51); Absolute Neutrophil Count 8.9 X10^3/uL (2.0-7.7); Basophil# 0.03 X10^3/uL; Basophil% 0.3 % (0-1); Eosinophil# 0.06 X10^3/uL; Eosinophils% 0.5 % (0-5); Hematocrit 42.9 % (37-47); Hemoglobin 14.2 g/dl (12.0-15.0); Lymphocyte # 1.56 X10^3/ul (4.0); Lymphocyte % 13.4 % (19-41); Mean Corp Hgb Conc 33.1 g/gl (32-36); Mean Corpuscular Hgb 29.6 pg (27.0-32.0); Mean Corpuscular Volume 89.6 fL (81-99); Mean Platelet Vol. 9.9 fl (6.2-12.0); Monocyte# 1.07 X10^3/uL; Monocyte% 9.2 % (0-10); Neutrophil # 8.87 X10^3/uL (2.7-7.7); Neutrophil % 76.2 % (47-70); POSITIVE COUNT NO; POSITIVE DIFFERENTIAL NO; POSITIVE MORPHOLOGY NO; Platelet Count 309 K/mm3 (150-450); RBC Distribution Width CV 13.8 % (11.6-14.6); Red Blood Count 4.79 M/mm3 (4.2-5.4); White Blood Count 11.6 K/mm3 (4.4-11.0)
[2019-04-30 08:07] LABS: Anion Gap 4 (5-15); BUN 3 mg/dL (7-18); BUN/Creat Ratio 4.9 RATIO (10-20); Calcium,Total 8.8 mg/dL (8.5-10.1); Chloride 110 mmol/L (98-107); Creatinine, Serum 0.62 mg/dL (0.55-1.02); EST Glomerular Filtration Rate 104 mL/min (>60); Est Glom Filt Rate - Afr Amer 125 mL/min (>60); Estimated Creatinine Clearance 66.71 ml/min; Glucose 94 mg/dL (74-106); Potassium 3.9 mmol/L (3.5-5.1); Sodium Level 139 mmol/L (136-145)
[2019-04-30] MEDS: Ondansetron 4 MG/2 ML Vial IV (08:07)
[2019-04-30] MEDS: 0.9% NaCl Peripheral Flush Adult/Peds IV ×3 (08:07→22:01)
[2019-04-30] MEDS: 0.9% Normal Saline 1,000 ML 125 ML IV (08:07)
--- NOTE | 2019-04-30 08:54 | RAD_ITS ---
STUDY: X-RAY - ABDOMEN/PELVIS REASON FOR EXAM: Female, 64 years old. NG tube placement. TECHNIQUE: Single AP view of the abdomen / pelvis. COMPARISON: April 28, 2019 and April 29, 2019. FINDINGS: Interstitial disease with costophrenic angle blunting. Aorta calcified. NG tube in position. Revisualized small bowel obstruction. Retained oral contrast. Osseous structures slightly demineralized. Right upper quadrant surgical clips. RAD/Abdomen Single View IMPRESSION: NG tube in position with revisualized small bowel obstruction Retained oral contrast Interstitial disease with costophrenic angle blunting Electronically Signed: Bonifacio Mustafa DO at 9:23 EDT Tel , Service support ,
[2019-04-30] MEDS: Bupivacaine Mpf 0.5% 30 ML VIAL (12:30)
--- NOTE | 2019-04-30 12:48 | OP.PCM_ITS ---
Problem List (1) Small bowel obstruction Status: Acute Report of Operation Date of Procedure: 04/30/19 Pre-Operative Diagnosis: Recurrent small bowel obstruction Post-Operative Diagnosis: Small internal hernia causing small bowel obstruction Surgery/Procedure Performed:: Exploratory laparoscopy with lysis of adhesion and release for small bowel obstruction Description of Surgical Findings:: Timeout and informed consent was obtained. 64-year-old female was taken the operating placed on the table underwent general endotracheal intubation anesthesia. Clindamycin 900 mg were given intravenously preoperatively. The abdomen sterilely prepped and draped. 0.5% Marcaine was used as local anesthetic. Throughout the procedure total 30 cc was serous. Skin sites were pre-anesthetized. A supraumbilical vertical incision was created sharp dissection carried down through the subtenons tissue the peritoneum was identified directly open and Senior catheter was inserted the abdomen was i nsufflated with CO2 to a pressure of 10 mm rectal pressure 5-minute trochars and placed in the right upper quadrant and left midabdomen expiration revealed grossly distended small bowel throughout I immediately went to the cecum saw decompressed terminal ileum and on extraordinarily gentle manipulation withdrew the very terminal ileum from a small fascial of adhesions that were adjacent to the cecum the bowel released from there clearly there was a area of erythematous dilated bowel and decompressed bowel but no compromise to the bowel no actual focal adhesive band but rather a veil of tissue making a very small internal hernia. I then lysed that veil of adhesive tissue completely releasing the cecum from the right pericolic area eliminating that internal spot. I carefully aspirated ascitic fluid from the pelvis. I carefully inspected the pelvis. There was no femoral hernia no inguinal hernia. I did not see any obturator hernia. There was no spit Denis hernia. The bowel was then traced back for several feet. At that point the bowel was generally dilated I elected not to pursue efforts due to the gross dilatation of the bowel and the risk of injury. The remainder of the abdomen was unremarkable. There was no odor. It was a light sanguinous fluid in the pelvis that was mostly aspirated free. Trochars removed. The fascia at the umbilicus approximated with [id number] sutures of 0 Vicryl. Skin edges proximal interrupted 4 Monocryl subdermal stitches. Steri-Strips Telfa and OpSite dressings applied. Sponge and instrument and needle counts reported surgical correct. Blood loss was minimal. No apparent complication. She was taken to the recovery area in satisfactory condition. Specimens none drains none blood loss minimal Rafael Quach M.D., F.A.C.S. Type of Anesthesia:: General Anesthesiologist: Letty Arguello
--- NOTE | 2019-04-30 13:09 | CPS ---
1X Duoneb given in PACU
[2019-04-30] MEDS: Lactated Ringers 1,000 ML 75 ML IV (14:09)
[2019-04-30] MEDS: Morphine 2 MG/ML Syringe IV ×2 (18:25→22:00)
--- NOTE | 2019-04-30 21:15 | NURSING ---
Addendum entered by Jennifer Hernandez 04/30/19 21:21: currently 96% on Room air Original Note: walked with pt in the [place]. O2 dropped to 79% on room air. Got 02 tank and put on 3L NC. Pt made a full lap in the [place]. pt tolerated well. Returned to bed. scd's & and k-pad applied. NG to LIWS.
[2019-04-30] MEDS: Phenol/Sodium Phenolate 180ML 5 SPRAY MM (22:07)
[2019-05-01] VITALS (7 sets, daily range): BP systolic 123–150; BP diastolic 55–62; PULSE 60–75; RESP 16–22; TEMP 36.5–36.6; O2SAT 92–99
[2019-05-01] MEDS: Morphine 2 MG/ML Syringe IV ×2 (02:34→06:10)
[2019-05-01] MEDS: 0.9% NaCl Peripheral Flush Adult/Peds IV ×3 (02:34→12:05)
[2019-05-01] MEDS: Lactated Ringers 1,000 ML 75 ML IV ×2 (02:38→13:53)
[2019-05-01 06:53] LABS: Anion Gap 6 (5-15); BUN 6 mg/dL (7-18); BUN/Creat Ratio 11.8 RATIO (10-20); Calcium,Total 8.7 mg/dL (8.5-10.1); Chloride 106 mmol/L (98-107); Creatinine, Serum 0.51 mg/dL (0.55-1.02); EST Glomerular Filtration Rate 129 mL/min (>60); Est Glom Filt Rate - Afr Amer 157 mL/min (>60); Glucose 71 mg/dL (74-106); Potassium 4.3 mmol/L (3.5-5.1); Sodium Level 140 mmol/L (136-145)
[2019-05-01 07:06] LABS: Absolute Lymphocyte Count 1.47 X10^3/ul (0.83-4.51); Absolute Neutrophil Count 3.7 X10^3/uL (2.0-7.7); Basophil# 0.02 X10^3/uL; Basophil% 0.3 % (0-1); Eosinophil# 0.02 X10^3/uL; Eosinophils% 0.3 % (0-5); Hematocrit 35.1 % (37-47); Hemoglobin 11.8 g/dl (12.0-15.0); Lymphocyte # 1.47 X10^3/ul (4.0); Lymphocyte % 23.4 % (19-41); Mean Corp Hgb Conc 33.6 g/gl (32-36); Mean Corpuscular Hgb 30.3 pg (27.0-32.0); Mean Platelet Vol. 9.9 fl (6.2-12.0); Monocyte# 1.03 X10^3/uL; Monocyte% 16.4 % (0-10); Neutrophil # 3.73 X10^3/uL (2.7-7.7); Neutrophil % 59.4 % (47-70); Platelet Count 231 K/mm3 (150-450); RBC Distribution Width CV 13.6 % (11.6-14.6); RBC Distribution Width SD 44.4 fl (35.1-43.9); White Blood Count 6.3 K/mm3 (4.4-11.0)
[2019-05-01] MEDS: Ipratropium/Albuterol Sulfate 3 ML AMPUL.NEB INHALATION ×3 (07:12→19:15)
[2019-05-01 07:15] LABS: POSITIVE COUNT NO; POSITIVE DIFFERENTIAL NO; POSITIVE MORPHOLOGY NO
--- NOTE | 2019-05-01 07:28 | PN_ITS ---
Patient Problems: Active and Suspected Problems Small bowel obstruction (Acute) SHIV (acute kidney injury) (Acute) Hyponatremia (Acute) Small bowel obstruction (Acute) Subjective: Patient underwent Exploratory laparoscopy with lysis of adhesion and release for small bowel obstruction on 04/30/2019 on account of recurrent small bowel obstruction. 05/01/2019. Patient seen complains of some abdominal discomfort Objective: GENERAL: cooperative HEENT: Atraumatic; NG tube in place EYES; Anicteric, Normal Conjunctiva NECK; supple, normal thyroid, RESPIRATORY: Diminished to auscultation CARDIOVASCULAR: Regular S1 S2, GI: Non Distended : No Renal angle tenderness; EXTREMITIES: No edema, no clubbing, MUSCULOSKELETAL: No Joint Tenderness; NEURO: Awake; no lateralizing signs. SKIN: No Rash PSYCH; Normal affect Vitals/I&O's: Vital Signs Temp Pulse Resp BP Pulse Ox 97.8 F 60 18 128/62 H 99 05/01/19 02:29 05/01/19 02:29 05/01/19 02:29 05/01/19 02:29 05/01/19 02:29 Oxygen Flow Rate (L/min) 3 Oxygen Delivery Method Nasal Cannula Weight: 45.9 kg Body Mass Index (BMI) 19.8 Intake and Output for Last 24 Hours 04/29/19 04/30/19 05/01/19 23:59 23:59 23:59 Intake Total 5362 / 5362 2452 / 2452 963 / 963 Output Total 1850 / 1850 750 / 750 1150 / 1150 Balance 3512 / 3512 1702 / 1702 -187 / -187 Laboratory Results 04/30/19 06:42: WBC 11.6 H, RBC 4.79, Hgb 14.2, Hct 42.9, MCV 89.6, MCH 29.6, MCHC 33.1, RDW 13.8, RDW Differential 45.0 H, Plt Count 309, MPV 9.9, Immature Gran % (Auto) 0.400, Neut % (Auto) 76.2 H, Lymph % (Auto) 13.4 L, [place] % (Auto) 9.2, Eos % (Auto) 0.5, Baso % (Auto) 0.3, Absolute Neuts (auto) 8.9 H, Absolute Lymphs (auto) 1.56, Total Counted Not Reportable 04/30/19 06:42: Sodium 139, Potassium 3.9, Chloride 110 H, Carbon Dioxide 25.0, Anion Gap 4 L, BUN 3 L, Creatinine 0.62, Estim Creat Clear Calc 66.71, Est GFR (MDRD) Af Amer 125, Est GFR (MDRD) Non-Af 104, BUN/Creatinine Ratio 4.9 L, Glucose 94, Calcium 8.8 05/01/19 05:36: WBC 6.3, RBC 3.90 L, Hgb 11.8 L, Hct 35.1 L, MCV 90.0, MCH 30.3, MCHC 33.6, RDW 13.6, RDW Differential 44.4 H, Plt Count 231, MPV 9.9, Immature Gran % (Auto) 0.200, Neut % (Auto) 59.4, Lymph % (Auto) 23.4, [place] % (Auto) 16.4 H, Eos % (Auto) 0.3, Baso % (Auto) 0.3, Absolute Neuts (auto) 3.7, Absolute Lymphs (auto) 1.47, Total Counted Not Reportable 05/01/19 05:36: Sodium 140, Potassium 4.3, Chloride 106, Carbon Dioxide 28.0, Anion Gap 6, BUN 6 L, Creatinine 0.51 L, Estim Creat Clear Calc 81.10, Est GFR (MDRD) Af Amer 157, Est GFR (MDRD) Non-Af 129, BUN/Creatinine Ratio 11.8, Glucose 71 L, Calcium 8.7 Current Medications Acetaminophen (Tylenol) 650 mg RECTAL Q4H PRN PRN PRN Reason: fever, pain Albuterol Sulfate (Ventolin Aerosols) 2.5 mg INHALATION Q2H PRN PRN PRN Reason: dyspnea, wheezing Albuterol/Ipratropium (Duoneb) 3 ml INHALATION Q6HWA.RT [facility] Last Admin: 05/01/19 07:12 Dose: 3 ml Dextrose (D50w Syringe) 0 gm IV X1 PRN; Protocol PRN Reason: Hypoglycemia Enoxaparin Sodium (Lovenox) 30 mg SC DAILY@1000 [facility] Last Admin: 04/30/19 12:09 Dose: Not Given Glucagon () 1 mg IM .X1 PRN PRN Reason: Hypoglycemia Hydralazine HCl (Apresoline Iv) 10 mg IV Q4H PRN PRN PRN Reason: SBP > 160 Famotidine 20 mg/ Sodium (Chloride) 10 mls @ 300 mls/hr IV Q12 OK Last Admin: 04/30/19 22:01 Dose: 300 mls/hr Sodium Chloride () 250 mls @ 15 mls/hr IV .[id number] PRN PRN Reason: SALINE FLUSH Lactated Ringer's () 1,000 mls @ 75 mls/hr IV .[id number] OK Last Admin: 05/01/19 02:38 Dose: 75 mls/hr Morphine Sulfate () 2 - 4 mg IV Q3H PRN PRN PRN Reason: PAIN Last Admin: 05/01/19 06:10 Dose: 2 mg Morphine Sulfate () 2 - 4 mg IV Q3H PRN PRN PRN Reason: PAIN Last Admin: 04/30/19 06:01 Dose: 3 mg Ondansetron HCl (Zofran) 4 mg IV Q8H PRN PRN PRN Reason: NAUSEA/VOMITING Last Admin: 04/30/19 08:07 Dose: 4 mg Phenol/Menthol (Chloraseptic (Bkc)) 5 spray MM Q2H PRN PRN PRN Reason: SORE THROAT Last Admin: 04/30/19 22:07 Dose: 5 spray Sodium Chloride () 5 - 15 ml IV UD PRN PRN Reason: SALINE FLUSH Last Admin: 05/01/19 06:10 Dose: 10 ml Medical Necessity - Tobacco Use Smoking Status: Current every day smoker Tobacco Use: Cigarettes Assessment/Plan All Active Problems Small bowel obstruction (Acute) SHIV (acute kidney injury) (Acute) Hyponatremia (Acute) Small bowel obstruction (Acute) Patient is a 64-year-old lady with past medical history significant for previous abdominal surgery including laparoscopic cholecystectomy as well as previous tubal ligation who presented with abdominal pain. CT of the abdomen and pelvis obtained on admission demonstrated evidence of partial small bowel obstruction with transition point. Patient admitted to regular nursing floor subsequently with consultation placed to general surgery 1. Partial small bowel obstruction suspected to be secondary to adhesions patient be managed conservatively with bowel rest NG tube to suction fluids pain meds with consultation placed to Dr. Quach with general surgery. ~04/29/2019 patient partial small bowel obstruction did resolve with conservative management plan will be to remove her NG tube this a.m. ~04/30/2019. Patient was noted to have markedly distended abdomen consistent with recurrent partial small bowel obstruction. Case discussed with with general surgery plan is for patient to undergo surgical intervention 04/30/2019 ~05/01/2019 Patient underwent Exploratory laparoscopy with lysis of adhesion and release for small bowel obstruction on 04/30/2019 on account of recurrent small bowel obstruction. 2. Hypertension-blood pressure controlled, home medications continued with dose adjustment as needed 3. Dyslipidemia: Diet controlled 4. COPD; on aerosol treatment as needed 5. Previous history of TIA. Stable 6. Congestive heart failure unspecified. Stable 7. DVT prophylaxis enoxaparin Code Visit Inpatient E&M: 12403 Subs Hosp L2
--- NOTE | 2019-05-01 08:06 | PCM.PN.SRG ---
Patient Problems: Active and Suspected Problems Small bowel obstruction (Acute) SHIV (acute kidney injury) (Acute) Hyponatremia (Acute) Small bowel obstruction (Acute) Subjective: Patient states her abdomen is less distended but still not back to down to normal, did have a little nausea this morning, NG put out about 100 cc and the last hour and a half but only 150 cc overnight. Positive flatus no bowel movements, patient did ambulate yesterday and plans to do so today - Physical Exam General: Alert, Oriented x3, Cooperative, No apparent distress Lungs: Normal air movement Cardiovascular: Regular rate Abdomen: Soft, Tender - Near incisions incisions clean dry and intact with OpSite's and mild in the right lower quadrant, no peritoneal signs Extremities: No clubbing, No cyanosis, No edema Neurological: Cranial nerves II-XII grossly intact Psych/Mental Status: Normal Affect Vital Signs Temp Pulse Resp BP Pulse Ox 97.8 F 67 18 128/62 H 97 05/01/19 02:29 05/01/19 07:12 05/01/19 07:12 05/01/19 02:29 05/01/19 07:12 Oxygen Flow Rate (L/min) 3 Oxygen Delivery Method Nasal Cannula Weight: 101 lb 3.075 oz Body Mass Index (BMI) 19.8 Intake and Output for Last 24 Hours 04/29/19 04/30/19 05/01/19 23:59 23:59 23:59 Intake Total 5362 / 5362 2452 / 2452 963 / 963 Output Total 1850 / 1850 750 / 750 1150 / 1150 Balance 3512 / 3512 1702 / 1702 -187 / -187 Laboratory Tests Past 24 Hrs 04/30/19 05/01/19 05/01/19 06:42 05:36 05:36 WBC 6.3 RBC 3.90 L Hgb 11.8 L Hct 35.1 L MCV 90.0 MCH 30.3 MCHC 33.6 RDW 13.6 RDW Differential 44.4 H Plt Count 231 MPV 9.9 Immature Gran % (Auto) 0.200 Neut % (Auto) 59.4 Lymph % (Auto) 23.4 [place] % (Auto) 16.4 H Eos % (Auto) 0.3 Baso % (Auto) 0.3 Absolute Neuts (auto) 3.7 Absolute Lymphs (auto) 1.47 Total Counted Not Reportable Sodium 139 140 Potassium 3.9 4.3 Chloride 110 H 106 Carbon Dioxide 25.0 28.0 Anion Gap 4 L 6 BUN 3 L 6 L Creatinine 0.62 0.51 L Estim Creat Clear Calc 66.71 81.10 Est GFR (MDRD) Af Amer 125 157 Est GFR (MDRD) Non-Af 104 129 BUN/Creatinine Ratio 4.9 L 11.8 Glucose 94 71 L Calcium 8.8 8.7 Medical Necessity - Tobacco Use Smoking Status: Current every day smoker Tobacco Use: Cigarettes Assessment/Plan All Active Problems Small bowel obstruction (Acute) SHIV (acute kidney injury) (Acute) Hyponatremia (Acute) Small bowel obstruction (Acute) Continue NG to low intermittent suction await increased bowel function. Continue ambulating halls. Sindy العلي M.D. Pager: [phone] [facility] [address] [place] [address], [facility], [address] [place] [id number] Office: [phone]
[2019-05-01] MEDS: Enoxaparin 30 MG/0.3 ML Syringe SC (09:19)
[2019-05-01] MEDS: Acetaminophen 325 MG Tablet 650 MG PO ×2 (12:05→19:29)
[2019-05-01 14:01] LABS: Bedside Glucose 72 mg/dL (70-110)
--- NOTE | 2019-05-01 20:35 | NURSING ---
Patient ambulated in hallway with this RN, 02 at 3L NC, patient tolerated well.
[2019-05-01] MEDS: Phenol/Sodium Phenolate 180ML 5 SPRAY MM (22:08)
[2019-05-02 02:40] VITALS: BP 153/64; PULSE 63; RESP 18; TEMP 36.5; O2SAT 94
[2019-05-02] MEDS: Acetaminophen 325 MG Tablet 650 MG PO (02:42)
[2019-05-02] MEDS: Lactated Ringers 1,000 ML 75 ML IV (02:43)
--- NOTE | 2019-05-02 05:33 | NURSING ---
Patient up and ambulated in hallway with staff this am, 02 at 3L NC while ambulating, patient tolerated well.
--- NOTE | 2019-05-02 06:00 | PCM.PN.SRG ---
Patient Problems: Active and Suspected Problems Small bowel obstruction (Acute) SHIV (acute kidney injury) (Acute) Hyponatremia (Acute) Small bowel obstruction (Acute) Subjective: Much improved, minimal discomfort, liquid stool - Physical Exam Abdomen: Bowel Sounds Present, Soft, Non Tender, Non-Distended Vital Signs Temp Pulse Resp BP Pulse Ox 97.7 F L 63 18 153/64 H 94 05/02/19 02:40 05/02/19 02:40 05/02/19 02:40 05/02/19 02:40 05/02/19 02:40 Oxygen Flow Rate (L/min) 2 Oxygen Delivery Method Nasal Cannula Weight: 101 lb 3.075 oz Body Mass Index (BMI) 19.8 Intake and Output for Last 24 Hours 04/30/19 05/01/19 05/02/19 23:59 23:59 23:59 Intake Total 2452 / 2452 2592 / 2592 457 / 457 Output Total 750 / 750 2575 / 2575 1375 / 1375 Balance 1702 / 1702 -918 / -918 Laboratory Tests Past 24 Hrs 05/01/19 05/01/19 05:36 05:36 WBC 6.3 RBC 3.90 L Hgb 11.8 L Hct 35.1 L MCV 90.0 MCH 30.3 MCHC 33.6 RDW 13.6 RDW Differential 44.4 H Plt Count 231 MPV 9.9 Immature Gran % (Auto) 0.200 Neut % (Auto) 59.4 Lymph % (Auto) 23.4 [place] % (Auto) 16.4 H Eos % (Auto) 0.3 Baso % (Auto) 0.3 Absolute Neuts (auto) 3.7 Absolute Lymphs (auto) 1.47 Total Counted Not Reportable Sodium 140 Potassium 4.3 Chloride 106 Carbon Dioxide 28.0 Anion Gap 6 BUN 6 L Creatinine 0.51 L Estim Creat Clear Calc 81.10 Est GFR (MDRD) Af Amer 157 Est GFR (MDRD) Non-Af 129 BUN/Creatinine Ratio 11.8 Glucose 71 L Calcium 8.7 POC Glucose 05/01/19 13:52 POC Glucose 72 Medical Necessity - Tobacco Use Smoking Status: Current every day smoker Tobacco Use: Cigarettes Assessment/Plan All Active Problems Small bowel obstruction (Acute) SHIV (acute kidney injury) (Acute) Hyponatremia (Acute) Small bowel obstruction (Acute) Much improved Will stop IVF and start clears and advance to fulls Hopeful discharge later today
[2019-05-02] MEDS: Phenol/Sodium Phenolate 180ML 5 SPRAY MM (06:20)
[2019-05-02 07:00] VITALS: PULSE 67; RESP 16; O2SAT 90
[2019-05-02] MEDS: Ipratropium/Albuterol Sulfate 3 ML AMPUL.NEB INHALATION (07:00)
[2019-05-02 08:10] VITALS: BP 147/78; PULSE 73; RESP 18; TEMP 36.4; O2SAT 92
[2019-05-02] MEDS: Enoxaparin 30 MG/0.3 ML Syringe SC (08:14)
[2019-05-02] MEDS: 0.9% NaCl Peripheral Flush Adult/Peds IV (08:17)
[2019-05-02] MEDS: Spironolactone 25 MG Tablet PO (12:12)
[2019-05-02] MEDS: Citalopram 40 MG TABLET PO (12:12)
[2019-05-02] MEDS: cloNIDine HCl 0.1 MG Tablet PO (12:12)
[2019-05-02] MEDS: Carvedilol 6.25 MG Tablet PO (12:12)
[2019-05-02] MEDS: Furosemide 40 MG Tablet PO (12:12)
[2019-05-02] MEDS: Montelukast 10 MG Tablet PO (12:13)
[2019-05-02] MEDS: Loratadine 10 MG Tablet PO (12:13)
--- NOTE | 2019-05-02 14:00 | PCM.DC.GS ---
Discharge Diet: Light diet - advance as tolerated Discharge Activity: May Not Drive - 5 days May shower in (days): 1 Lifting Restrictions: 10 pounds Call your doctor if your incision/area has: Continuous Slow Oozing, Sudden Increased Bleeding, Increased Pain/ Swelling, Increased Redness, Foul Smelling Discharge, Swelling at the incision site Suture Line Care: Avoid Pulling/Pushing, Avoid Pinching/Bending Change Dressing in (Days):: 4 - Leave steri-strips in place for 1 week. Cleanse incision/area with: Soap & Water Allergies/Adverse Reactions: Allergies codeine Allergy (Verified 04/27/19 22:52) Anaphylaxis Penicillins [PCN] Allergy (Verified 04/27/19 22:52) Anaphylaxis Medications to take at Discharge Albuterol Aerosols [Ventolin Aerosols] 2.5 mg INHALATION Q4H PRN PRN 04/28/19 Albuterol Inhaler [Ventolin Hfa] 2 puff INHALATION Q4H PRN PRN 04/28/19 Atorvastatin Calcium [Lipitor] 20 mg PO QHS 04/28/19 Carvedilol [Coreg] 6.25 mg PO BID 04/28/19 Citalopram [Celexa] 40 mg PO DAILY 04/28/19 Clonidine HCl [Catapres] 0.1 mg PO BID 04/28/19 Furosemide 40 mg PO DAILY 04/28/19 Levothyroxine [Synthroid] 50 mcg PO DAILY 04/28/19 Loratadine 10 mg PO DAILY 04/28/19 Metoclopramide HCl 10 mg PO 4X/DAY 04/28/19 Mirtazapine [Remeron] 15 mg PO QHS 04/28/19 Montelukast [Singulair] 10 mg PO DAILY 04/28/19 Nitroglycerin 0.4 mg SL DAILY PRN PRN 04/28/19 Omeprazole [Prilosec] 40 mg PO BID 04/28/19 Ranitidine HCl 300 mg PO BID 04/28/19 Spironolactone 25 mg PO DAILY 04/28/19 Umeclidinium [place] Inhaler [Incruse Ellipta Inhaler] 1 puff INHALATION DAILY 04/28/19 traZODone [Desyrel] 50 mg PO QHS 04/28/19 Primary Care Physician: Salvatore Mathews PA [Primary Care Provider] - Test Results: Test results from this visit will be discussed in further detail at your follow-up appointment, if applicable. Please Follow Up With: Lucy Quigley PA-C - [phone] When: 10 days Proposed Discharge Date: 05/02/19
--- NOTE | 2019-05-02 14:09 | DCINST_ITS ---
- Discharge Diagnoses Current Active Problems: Current Active and Chronic Problems Small bowel obstruction (Acute) SHIV (acute kidney injury) (Acute) Hyponatremia (Acute) HTN (hypertension) (Chronic) HLD (hyperlipidemia) (Chronic) CHF (congestive heart failure) (Chronic) COPD (chronic obstructive pulmonary disease) (Chronic) Tobacco use (Chronic) TIA (transient ischemic attack) (Chronic) Small bowel obstruction (Acute) You will use the following diet at home:: Cardiac, Other - Light diet, advance as tolerated. Your food should be the consistency of: Regular Discharge Activity: May Not Drive - 5 days May shower in (days): 1 Weight Bearing Status: Weight bearing as tolerated Call your doctor if your incision/area has: Continuous Slow Oozing, Sudden Increased Bleeding, Increased Pain/ Swelling, Increased Redness, Foul Smelling Discharge, Swelling at the incision site Call your doctor if you observe: Fever of 101 or Higher, Shortness of breath, Dizziness, Fainting spells, Chest pain, Increased palpitations (irregular heartbeat), Uncontrolled pain Suture Line Care: Avoid Pulling/Pushing, Avoid Pinching/Bending Change Dressing in (Days):: 4 - Leave steri-strips in place for 1 week. Cleanse incision/area with: Soap & Water Allergies/Adverse Reactions: Allergies codeine Allergy (Verified 04/27/19 22:52) Anaphylaxis Penicillins [PCN] Allergy (Verified 04/27/19 22:52) Anaphylaxis Medications to take at Discharge Albuterol Aerosols [Ventolin Aerosols] 2.5 mg INHALATION Q4H PRN PRN 04/28/19 Albuterol Inhaler [Ventolin Hfa] 2 puff INHALATION Q4H PRN PRN 04/28/19 Atorvastatin Calcium [Lipitor] 20 mg PO QHS 04/28/19 Carvedilol [Coreg] 6.25 mg PO BID 04/28/19 Citalopram [Celexa] 40 mg PO DAILY 04/28/19 Clonidine HCl [Catapres] 0.1 mg PO BID 04/28/19 Furosemide 40 mg PO DAILY 04/28/19 Levothyroxine [Synthroid] 50 mcg PO DAILY 04/28/19 Loratadine 10 mg PO DAILY 04/28/19 Metoclopramide HCl 10 mg PO 4X/DAY 04/28/19 Mirtazapine [Remeron] 15 mg PO QHS 04/28/19 Montelukast [Singulair] 10 mg PO DAILY 04/28/19 Nitroglycerin 0.4 mg SL DAILY PRN PRN 04/28/19 Omeprazole [Prilosec] 40 mg PO BID 04/28/19 Ranitidine HCl 300 mg PO BID 04/28/19 Spironolactone 25 mg PO DAILY 04/28/19 Umeclidinium [place] Inhaler [Incruse Ellipta Inhaler] 1 puff INHALATION DAILY 04/28/19 traZODone [Desyrel] 50 mg PO QHS 04/28/19 Primary Care Physician: Salvatore Mathews PA [Primary Care Provider] - Please follow up with your Primary Care Physician in: 2 WEEKS. Test Results: Test results from this visit will be discussed in further detail at your follow- up appointment, if applicable. Please Follow Up With: Lucy Quigley PA-C - [phone] When: 10 days Proposed Discharge Date: 05/02/19
--- NOTE | 2019-05-02 14:09 | PCM.DC.SUM ---
Discharge Date and Diagnosis - Problem List Patient Problems: Active and Suspected Problems Small bowel obstruction (Acute) Hyponatremia (Acute) Date of Admission: 04/28/19 Date of Discharge: 05/02/19 - Primary Discharge Diagnosis Active and Suspected Problems Recurrent small bowel obstruction caused by small internal hernia, status post exploratory laparoscopy with lysis of adhesions and release of small bowel obstruction. - Secondary Discharge Diagnosis Chronic Problems HTN (hypertension) (Chronic) HLD (hyperlipidemia) (Chronic) CHF (congestive heart failure) (Chronic) COPD (chronic obstructive pulmonary disease) (Chronic) Tobacco use (Chronic) TIA (transient ischemic attack) (Chronic) Hospital Course and Treatment Imaging Results: Clinical Impression(s) from Imaging Studies Abdomen/Pelvis CT 04/27/19 23:07 IMPRESSION: Evidence for at least a partial distal small bowel obstruction. I can find the transition point, but I cannot define an etiology for the transition. Distended stomach with oral contrast and gas refluxing through a small hiatal hernia into the esophagus with distention of the esophagus with contrast and gas suggestive of reflux disease. Severe atherosclerotic disease. Basilar lung disease with interstitial prominence, likely interstitial pulmonary edema, but possibly more than just atelectasis and edema, could be some basilar pneumonia. Individualized dose optimization techniques were used for this CT. at 0218 Reported and signed by: Silviano Thorpe MD Electronically Signed: Silviano Thorpe MD at 2:17 EDT Tel , Service support , ADDENDUM: 04/28/19 2029 IMPRESSION: Evidence for at least a partial distal small bowel obstruction. I can find the transition point, but I cannot define an etiology for the transition. Distended stomach with oral contrast and gas refluxing through a small hiatal hernia into the esophagus with distention of the esophagus with contrast and gas suggestive of reflux disease. Severe atherosclerotic disease. Basilar lung disease with interstitial prominence, likely interstitial pulmonary edema, but possibly more than just atelectasis and edema, could be some basilar pneumonia. Individualized dose optimization techniques were used for this CT. at 0218 Reported and signed by: Silviano Thorpe MD N.B. : The above information has been verbally conveyed by Silviano Thorpe MD to Sridhar Mcknight MD, on 04/28/2019 02:20:43 (ET). Electronically Signed: Silviano Thorpe MD at 2:17 EDT Tel , Service support , KUB X-Ray 04/28/19 02:25 IMPRESSION: This is the first of 2 images. This image demonstrates the proximal most sidehole within the distal esophagus. at 0323 Reported and signed by: Silviano Thorpe MD Electronically Signed: Silviano Thorpe MD at 3:22 EDT Tel , Service support , KUB X-Ray 04/28/19 03:02 IMPRESSION: Advancement of esophagogastric tube so that now but the tip in the proximal sidehole are below the diaphragm, likely within the stomach. at 0322 Reported and signed by: Silviano Thorpe MD Electronically Signed: Silviano Thorpe MD at 3:21 EDT Tel , Service support , KUB X-Ray 04/28/19 08:00 IMPRESSION: Moderate amount of fecal material is seen throughout the colon. Single mildly dilated small bowel loop in the central abdomen. The tip of the nasogastric tube is in the body of the stomach. Electronically Signed: Bar Martin, at 8:38 EDT , Service support , Small Bowel X-Ray 04/28/19 14:00 IMPRESSION: Unremarkable small bowel series without evidence for obstructive Electronically Signed: Saud Mcintyre MD at 17:01 EDT , Service support , Abdomen X-Ray 04/29/19 05:55 IMPRESSION: Retained oral contrast without obstructive bowel gas pattern NG tube in position Interstitial lung disease with costophrenic angle blunting Additional postsurgical changes, as above Electronically Signed: Bonifacio Mustafa DO at 12:28 EDT Tel , Service support , Abdomen X-Ray 04/30/19 06:22 IMPRESSION: Findings consistent with ileus versus partial small bowel obstruction. Postoperative changes right upper quadrant. Lower lobe atelectasis and/or developing infiltrates. Electronically Signed: Katherine Murcia MD at 10:13 EDT Tel , Service support , KUB X-Ray 04/30/19 08:54 IMPRESSION: NG tube in position with revisualized small bowel obstruction Retained oral contrast Interstitial disease with costophrenic angle blunting Electronically Signed: Bonifacio Mustafa DO at 9:23 EDT Tel , Service support , Dr. Quach, general surgery. Operations: - - Exploratory laparoscopy with lysis of adhesions. Procedures: None Summary of Care Provided: Patient seen and examined on the day of discharge and appeared to be stable to be discharged home. She denies any more abdominal pain, no more nausea or vomiting. She has been having bowel movements and passing gas. She tolerated clear liquids. Her vital signs are stable. The patient is a 64 year old F presented to the emergency room because of abdominal pain and she was found to have evidence of at least partial distal small bowel obstruction on CT scan abdomen and pelvis with contrast that was done on admission. Patient had significant previous abdominal surgeries including laparoscopic cholecystectomy and tubal ligation. Today, she was treated conservatively, kept on n.p.o., IV fluids, IV pain medications and IV antiemetics. Her symptoms did not improve and conservative approach failed. General surgery consulted and initially agreed to continue conservative treatment. On admission, patient was dehydrated as indicated by hemoconcentration and slightly elevated creatinine but there was no evidence of significant acute kidney injury. Her sodium on admission was 128 which is also attributed to dehydration and hypovolemic hyponatremia. With IV fluids, sodium level as well as serum creatinine returning back to normal. Because of failure of the conservative approach, general surgery decided to take patient for surgery. She underwent exploratory laparoscopy with lysis of adhesions and release of the small bowel obstruction. Postoperatively, patient did very well. Her vitals remained stable. On day of discharge, patient was started on clear liquids which was tolerated. Patient discharged home in a stable medical condition, recommended to use light diet and advance as tolerated, restarted back on her home medications without any changes, recommended follow-up with PCP in 2 weeks and follow-up with general surgery in 10 days. Patient Problems: Active and Suspected Problems Small bowel obstruction (Acute) Hyponatremia (Acute) - Physical Exam General: Alert, Oriented x3, Cooperative, No apparent distress HEENT: Atraumatic, PERRLA, EOMI, Normocephalic Oral: Moist Mucosa, No Gingival or Mucosal Lesions/ Ulcerations Neck: Supple, No JVD, Negative Carotid Bruits, Trachea Midline, Thyroid Normal Size and Texture Lungs: Clear to auscultation, No rhonchi, No wheeze, No rales, Diminished Cardiovascular: Regular rate, Regular Rhythm, Normal S1, Normal S2, PMI Normal Abdomen: Bowel Sounds Present, Soft, Non Tender, Non-Distended, No Hepato-splenomegaly Extremities: No clubbing, No cyanosis, No edema Skin: No rashes, No breakdown Lymphatic: No Cervical, Supraclavicular, or Inguinal Adenopathy Neurological: Cranial nerves II-XII grossly intact, Neuro grossly intact Psych/Mental Status: Normal Affect, Appropriate Vital Signs Temp Pulse Resp BP Pulse Ox 97.5 F L 73 18 147/78 H 92 05/02/19 08:10 05/02/19 08:10 05/02/19 08:10 05/02/19 08:10 05/02/19 08:10 Oxygen Flow Rate (L/min) 2 Oxygen Delivery Method Room Air Weight: 101 lb 3.075 oz Body Mass Index (BMI) 19.8 Intake and Output for Last 24 Hours 04/30/19 05/01/19 05/02/19 23:59 23:59 23:59 Intake Total 2452 / 2452 2592 / 2592 757 / 757 Output Total 750 / 750 2575 / 2575 1375 / 1375 Balance 1702 / 1702 -618 / -618 Discharge Diet: Light diet - advance as tolerated Discharge Activity: May Not Drive - 5 days May shower in (days): 1 Weight Bearing Status: Weight bearing as tolerated Call your doctor if your incision/area has: Continuous Slow Oozing, Sudden Increased Bleeding, Increased Pain/ Swelling, Increased Redness, Foul Smelling Discharge, Swelling at the incision site Call your doctor if you observe: Fever of 101 or Higher, Shortness of breath, Dizziness, Fainting spells, Chest pain, Increased palpitations (irregular heartbeat), Uncontrolled pain Suture Line Care: Avoid Pulling/Pushing, Avoid Pinching/Bending Change Dressing in (Days):: 4 - Leave steri-strips in place for 1 week. Cleanse incision/area with: Soap & Water Home Medications: Medications to take at Discharge Albuterol Aerosols [Ventolin Aerosols] 2.5 mg INHALATION Q4H PRN PRN 04/28/19 Albuterol Inhaler [Ventolin Hfa] 2 puff INHALATION Q4H PRN PRN 04/28/19 Atorvastatin Calcium [Lipitor] 20 mg PO QHS 04/28/19 Carvedilol [Coreg] 6.25 mg PO BID 04/28/19 Citalopram [Celexa] 40 mg PO DAILY 04/28/19 Clonidine HCl [Catapres] 0.1 mg PO BID 04/28/19 Furosemide 40 mg PO DAILY 04/28/19 Levothyroxine [Synthroid] 50 mcg PO DAILY 04/28/19 Loratadine 10 mg PO DAILY 04/28/19 Metoclopramide HCl 10 mg PO 4X/DAY 04/28/19 Mirtazapine [Remeron] 15 mg PO QHS 04/28/19 Montelukast [Singulair] 10 mg PO DAILY 04/28/19 Nitroglycerin 0.4 mg SL DAILY PRN PRN 04/28/19 Omeprazole [Prilosec] 40 mg PO BID 04/28/19 Ranitidine HCl 300 mg PO BID 04/28/19 Spironolactone 25 mg PO DAILY 04/28/19 Umeclidinium [place] Inhaler [Incruse Ellipta Inhaler] 1 puff INHALATION DAILY 04/28/19 traZODone [Desyrel] 50 mg PO QHS 04/28/19 Primary Care Physician: Salvatore Mathews PA [Primary Care Provider] - Please follow up with your Primary Care Physician in: 2 WEEKS. Please Follow Up With: Lucy Quigley PA-C - [phone] When: 10 days Disposition: Home Minutes spent on discharge:: 32 Patient Condition:: Stable Medical Necessity - Tobacco Use Smoking Status: Current every day smoker Tobacco Use: Cigarettes Meaningful Use Info Meaningful Use Diagnoses (Choose all that apply): None applicable Code Visit Inpatient E&M: 15977 Disch Hosp
[2019-05-02 14:10] VITALS: BP 120/70; PULSE 66; RESP 20; TEMP 36.6; O2SAT 92
--- NOTE | 2019-05-02 14:17 | DS.PCM_ITS ---
Discharge Date and Diagnosis - Problem List Patient Problems: Active and Suspected Problems Small bowel obstruction (Acute) Hyponatremia (Acute) Date of Admission: 04/28/19 Date of Discharge: 05/02/19 - Primary Discharge Diagnosis Active and Suspected Problems Recurrent small bowel obstruction caused by small internal hernia, status post exploratory laparoscopy with lysis of adhesions and release of small bowel obstruction. - Secondary Discharge Diagnosis Chronic Problems HTN (hypertension) (Chronic) HLD (hyperlipidemia) (Chronic) CHF (congestive heart failure) (Chronic) COPD (chronic obstructive pulmonary disease) (Chronic) Tobacco use (Chronic) TIA (transient ischemic attack) (Chronic) Hospital Course and Treatment Imaging Results: Clinical Impression(s) from Imaging Studies Abdomen/Pelvis CT 04/27/19 23:07 IMPRESSION: Evidence for at least a partial distal small bowel obstruction. I can find the transition point, but I cannot define an etiology for the transition. Distended stomach with oral contrast and gas refluxing through a small hiatal hernia into the esophagus with distention of the esophagus with contrast and gas suggestive of reflux disease. Severe atherosclerotic disease. Basilar lung disease with interstitial prominence, likely interstitial pulmonary edema, but possibly more than just atelectasis and edema, could be some basilar pneumonia. Individualized dose optimization techniques were used for this CT. at 0218 Reported and signed by: Silviano Thorpe MD Electronically Signed: Silviaon Thorpe MD at 2:17 EDT Tel , Service support , ADDENDUM: 04/28/19 4767 IMPRESSION: Evidence for at least a partial distal small bowel obstruction. I can find the transition point, but I cannot define an etiology for the transition. Distended stomach with oral contrast and gas refluxing through a small hiatal hernia into the esophagus with distention of the esophagus with contrast and gas suggestive of reflux disease. Severe atherosclerotic disease. Basilar lung disease with interstitial prominence, likely interstitial pulmonary edema, but possibly more than just atelectasis and edema, could be some basilar pneumonia. Individualized dose optimization techniques were used for this CT. at 0218 Reported and signed by: Silviano Thorpe MD N.B. : The above information has been verbally conveyed by Silviano Thorpe MD to Sridhar Mcknight MD, on 04/28/2019 02:20:43 (ET). Electronically Signed: Silviano Thorpe MD at 2:17 EDT Tel , Service support , KUB X-Ray 04/28/19 02:25 IMPRESSION: This is the first of 2 images. This image demonstrates the proximal most sidehole within the distal esophagus. at 0323 Reported and signed by: Silviano Thorpe MD Electronically Signed: Silviano Thorpe MD at 3:22 EDT Tel , Service support , KUB X-Ray 04/28/19 03:02 IMPRESSION: Advancement of esophagogastric tube so that now but the tip in the proximal sidehole are below the diaphragm, likely within the stomach. at 0322 Reported and signed by: Silviano Thorpe MD Electronically Signed: Silviano Thorpe MD at 3:21 EDT Tel , Service support , KUB X-Ray 04/28/19 08:00 IMPRESSION: Moderate amount of fecal material is seen throughout the colon. Single mildly dilated small bowel loop in the central abdomen. The tip of the nasogastric tube is in the body of the stomach. Electronically Signed: Bar Martin, at 8:38 EDT , Service support , Small Bowel X-Ray 04/28/19 14:00 IMPRESSION: Unremarkable small bowel series without evidence for obstructive Electronically Signed: Saud Mcintyre MD at 17:01 EDT , Service support , Abdomen X-Ray 04/29/19 05:55 IMPRESSION: Retained oral contrast without obstructive bowel gas pattern NG tube in position Interstitial lung disease with costophrenic angle blunting Additional postsurgical changes, as above Electronically Signed: Bonifacio Mustafa DO at 12:28 EDT Tel , Service support , Abdomen X-Ray 04/30/19 06:22 IMPRESSION: Findings consistent with ileus versus partial small bowel obstruction. Postoperative changes right upper quadrant. Lower lobe atelectasis and/or developing infiltrates. Electronically Signed: Katherine Murcia MD at 10:13 EDT Tel , Service support , KUB X-Ray 04/30/19 08:54 IMPRESSION: NG tube in position with revisualized small bowel obstruction Retained oral contrast Interstitial disease with costophrenic angle blunting Electronically Signed: Bonifacio Mustafa DO at 9:23 EDT Tel , Service support , Dr. Quach, general surgery. Operations: - - Exploratory laparoscopy with lysis of adhesions. Procedures: None Summary of Care Provided: Patient seen and examined on the day of discharge and appeared to be stable to be discharged home. She denies any more abdominal pain, no more nausea or vomiting. She has been having bowel movements and passing gas. She tolerated clear liquids. Her vital signs are stable. The patient is a 64 year old F presented to the emergency room because of abdominal pain and she was found to have evidence of at least partial distal small bowel obstruction on CT scan abdomen and pelvis with contrast that was done on admission. Patient had significant previous abdominal surgeries including laparoscopic cholecystectomy and tubal ligation. Today, she was treated conservatively, kept on n.p.o., IV fluids, IV pain medications and IV antiemetics. Her symptoms did not improve and conservative approach failed. General surgery consulted and initially agreed to continue conservative treatment. On admission, patient was dehydrated as indicated by hemoconcentration and slightly elevated creatinine but there was no evidence of significant acute kidney injury. Her sodium on admission was 128 which is also attributed to dehydration and hypovolemic hyponatremia. With IV fluids, sodium level as well as serum creatinine returning back to normal. Because of failure of the conservative approach, general surgery decided to take patient for surgery. She underwent exploratory laparoscopy with lysis of adhesions and release of the small bowel obstruction. Postoperatively, patient did very well. Her vitals remained stable. On day of discharge, patient was started on clear liquids which was tolerated. Patient discharged home in a stable medical condition, recommended to use light diet and advance as tolerated, restarted back on her home medications without any changes, recommended follow-up with PCP in 2 weeks and follow-up with general surgery in 10 days. Patient Problems: Active and Suspected Problems Small bowel obstruction (Acute) Hyponatremia (Acute) - Physical Exam General: Alert, Oriented x3, Cooperative, No apparent distress HEENT: Atraumatic, PERRLA, EOMI, Normocephalic Oral: Moist Mucosa, No Gingival or Mucosal Lesions/ Ulcerations Neck: Supple, No JVD, Negative Carotid Bruits, Trachea Midline, Thyroid Normal Size and Texture Lungs: Clear to auscultation, No rhonchi, No wheeze, No rales, Diminished Cardiovascular: Regular rate, Regular Rhythm, Normal S1, Normal S2, PMI Normal Abdomen: Bowel Sounds Present, Soft, Non Tender, Non-Distended, No Hepato- splenomegaly Extremities: No clubbing, No cyanosis, No edema Skin: No rashes, No breakdown Lymphatic: No Cervical, Supraclavicular, or Inguinal Adenopathy Neurological: Cranial nerves II-XII grossly intact, Neuro grossly intact Psych/Mental Status: Normal Affect, Appropriate Vital Signs Temp Pulse Resp BP Pulse Ox 97.5 F L 73 18 147/78 H 92 05/02/19 08:10 05/02/19 08:10 05/02/19 08:10 05/02/19 08:10 05/02/19 08:10 Oxygen Flow Rate (L/min) 2 Oxygen Delivery Method Room Air Weight: 101 lb 3.075 oz Body Mass Index (BMI) 19.8 Intake and Output for Last 24 Hours 04/30/19 05/01/19 05/02/19 23:59 23:59 23:59 Intake Total 2452 / 2452 2592 / 2592 757 / 757 Output Total 750 / 750 2575 / 2575 1375 / 1375 Balance 1702 / 1702 -618 / -618 Discharge Diet: Light diet - advance as tolerated Discharge Activity: May Not Drive - 5 days May shower in (days): 1 Weight Bearing Status: Weight bearing as tolerated Call your doctor if your incision/area has: Continuous Slow Oozing, Sudden Increased Bleeding, Increased Pain/ Swelling, Increased Redness, Foul Smelling Discharge, Swelling at the incision site Call your doctor if you observe: Fever of 101 or Higher, Shortness of breath, Dizziness, Fainting spells, Chest pain, Increased palpitations (irregular heartbeat), Uncontrolled pain Suture Line Care: Avoid Pulling/Pushing, Avoid Pinching/Bending Change Dressing in (Days):: 4 - Leave steri-strips in place for 1 week. Cleanse incision/area with: Soap & Water Home Medications: Medications to take at Discharge Albuterol Aerosols [Ventolin Aerosols] 2.5 mg INHALATION Q4H PRN PRN 04/28/19 Albuterol Inhaler [Ventolin Hfa] 2 puff INHALATION Q4H PRN PRN 04/28/19 Atorvastatin Calcium [Lipitor] 20 mg PO QHS 04/28/19 Carvedilol [Coreg] 6.25 mg PO BID 04/28/19 Citalopram [Celexa] 40 mg PO DAILY 04/28/19 Clonidine HCl [Catapres] 0.1 mg PO BID 04/28/19 Furosemide 40 mg PO DAILY 04/28/19 Levothyroxine [Synthroid] 50 mcg PO DAILY 04/28/19 Loratadine 10 mg PO DAILY 04/28/19 Metoclopramide HCl 10 mg PO 4X/DAY 04/28/19 Mirtazapine [Remeron] 15 mg PO QHS 04/28/19 Montelukast [Singulair] 10 mg PO DAILY 04/28/19 Nitroglycerin 0.4 mg SL DAILY PRN PRN 04/28/19 Omeprazole [Prilosec] 40 mg PO BID 04/28/19 Ranitidine HCl 300 mg PO BID 04/28/19 Spironolactone 25 mg PO DAILY 04/28/19 Umeclidinium [place] Inhaler [Incruse Ellipta Inhaler] 1 puff INHALATION DAILY 04/28/19 traZODone [Desyrel] 50 mg PO QHS 04/28/19 Primary Care Physician: Salvatore Mathews PA [Primary Care Provider] - Please follow up with your Primary Care Physician in: 2 WEEKS. Please Follow Up With: Lucy Quigley PA-C - [phone] When: 10 days Disposition: Home Minutes spent on discharge:: 32 Patient Condition:: Stable Medical Necessity - Tobacco Use Smoking Status: Current every day smoker Tobacco Use: Cigarettes Meaningful Use Info Meaningful Use Diagnoses (Choose all that apply): None applicable Code Visit Inpatient E&M: 31519 Disch Hosp
== END 2019-05-02 14:24 | disposition home or self-care (01) | DRG 224 ==
LOC: ED 23:24 → MS3 04-28 02:43
PROVIDERS: Internal Medicine; Surgery; Admitting Provider Family Medicine; Emergency Provider Emergency Medicine; Family Provider Physician Assistant; PCP Physician Assistant; Referring Provider Family Medicine; Visit Provider Hospitalist
PROC: 0DNH4ZZ Release Cecum, Percutaneous Endoscopic Approach (ICD-10-PCS; CPT 44202; principal; 2019-04-30 11:30)
DX: K56.51 Intestinal adhesions [bands], with partial obstruction (principal); E87.1 Hypo-osmolality and hyponatremia; Z86.73 Personal history of transient ischemic attack (TIA), and cerebral infarction without residual deficits; K21.9 Gastro-esophageal reflux disease without esophagitis; J44.9 Chronic obstructive pulmonary disease, unspecified; E78.5 Hyperlipidemia, unspecified; I11.0 Hypertensive heart disease with heart failure; N17.9 Acute kidney failure, unspecified; F17.210 Nicotine dependence, cigarettes, uncomplicated; E86.0 Dehydration; E86.1 Hypovolemia; R73.9 Hyperglycemia, unspecified; E83.52 Hypercalcemia; I50.9 Heart failure, unspecified; F41.9 Anxiety disorder, unspecified; F32.9 Major depressive disorder, single episode, unspecified; Z79.51 Long term (current) use of inhaled steroids; Z79.899 Other long term (current) drug therapy; Z99.81 Dependence on supplemental oxygen
CPT/HCPCS: 36415; 74018; 74019; 74177; 74250; 80048; 80053; 81001; 82962; 83605; 83690; 83735; 85025; 94640; 99285; 99406; J7030; J7120; Q9967; A4216; J2405; J3490

== ENCOUNTER → 2021-03-11 07:31 | Outpatient (CLI) | payer MEDICARE, MEDICAID, SELFPAY ==
[2019-04-30 11:16] VITALS: BMI 19.8
--- NOTE | 2021-03-13 09:06 | STRESSREP ---
Stress Test Report Date: 03/11/2021 Procedure: Pharmacologic stress nuclear imaging study Indications: CAD Consent: Per the patient Procedure: The patient underwent pharmacologic (Regadenoson) evaluation with a peak heart rate of 75 beats per minute (48%predicted maximal heart rate) and a peak blood pressure of 148/58 mmHg. The baseline ECG demonstrated normal sinus rhythm, nonspecific ST-T changes. EKG during lexiscan infusion revealed no significant ischemic changes. EKG post infusion revealed no significant ischemic changes [There were no cardiac dysrhythmias pretest, during pharmacologic infusion, or recovery]. [There was no complaint of chest discomfort during pharmacologic infusion or recovery]. The examination was discontinued secondary to completion of protocol. Impression: 1. Lexiscan stress test test is negative for Lexiscan infusion induced EKG changes of ischemia. 2. Lexiscan stress test test is negative for Lexiscan infusion induced chest pain. 3. Results of the nuclear portion of the test is as below Myocardial perfusion imaging study: Technique: The patient was injected with 9.5 millicuries of technetium 99m Cardiolite and subsequently rest SPECT Cardiolite nuclear imaging was obtained in the horizontal long, vertical long, and short axis views. The patient underwent pharmacologic [Regadenoson 0.4mg] evaluation. Please see above for details. The patient was injected with 32.3 millicuries of technetium 99m Cardiolite and subsequently stress SPECT Cardiolite nuclear imaging was obtained in the horizontal long, vertical long, and short axis views. A gated Cardiolite study at peak stress was obtained. Interpretation: Rest and stress SPECT Cardiolite nuclear imaging status post realignment, normalization, and attenuation correction demonstrate overall normal myocardial radioisotope uptake. Gated images reveal no significant regional wall motion abnormalities. The reported LVEF is greater than 70%. Impression: 1. There is no evidence of significant ischemia or infarction. 2. Estimated ejection fraction is greater than 70%. This note was generated with Springpad[employer] software. It may contain incorrect words, spelling, and punctuation that were not noted in checking the note before signing.
== END ==
LOC: CVS 07:35
PROVIDERS: PCP Physician Assistant; Referring Provider Physician Assistant; Visit Provider Physician Assistant
DX: I20.0 Unstable angina (principal); Z13.6 Encounter for screening for cardiovascular disorders
CPT/HCPCS: 78452; 93017; A9500; A4216; J2785

== ENCOUNTER 2023-06-18 15:41 | Inpatient (IN) | payer MEDICARE, SELFPAY ==
[2023-06-18 15:42] VITALS: BP 136/103; PULSE 124; RESP 19; TEMP 36.9; O2SAT 85; BMI 20.9
[2023-06-18 16:20] VITALS: O2SAT 95
[2023-06-18 17:11] LABS: Absolute Lymphocyte Count 1.87 X10^3/uL (0.83-4.51); Absolute Neutrophil Count 6.2 X10^3/uL (2.0-7.7); Basophil# 0.07 X10^3/uL; Basophil% 0.8 % (0-1); Eosinophil# 0.05 X10^3/uL; Eosinophils% 0.5 % (0-5); Hematocrit 49.8 % (37-47); Lymphocyte # 1.87 X10^3/ul (0.83-4.51); Lymphocyte % 20.4 % (19-41); Mean Corp Hgb Conc 32.1 g/dL (32-36); Mean Corpuscular Hgb 31.6 pg (27.0-32.0); Mean Corpuscular Volume 98.2 fL (81-99); Mean Platelet Vol. 9.9 fl (6.2-12.0); Monocyte# 0.95 X10^3/uL; Monocyte% 10.4 % (0-10); NRBC Flagged by Analyzer 0 % (0-5); Neutrophil # 6.18 X10^3/uL (2.7-7.7); Neutrophil % 67.5 % (47-70); Platelet Count 342 K/mm3 (150-450); RBC Distribution Width CV 17.8 % (11.6-14.6); RBC Distribution Width SD 63.1 fl (35.1-43.9); Red Blood Count 5.07 M/mm3 (4.2-5.4); White Blood Count 9.2 K/mm3 (4.4-11.0)
[2023-06-18 17:25] LABS: ALB/GLOB Ratio 0.9 RATIO (0.9-2.4); AST(SGOT) 23 U/L (15-37); Alanine Aminotransfer ALT/SGPT 23 U/L (13-56); Albumin, Serum 3.8 g/dL (3.2-5.0); Alkaline Phosphatase 113 U/L (45-117); Anion Gap 12 (5-15); BUN 28 mg/dL (7-18); BUN/Creat Ratio 34.2 RATIO (10-20); Calcium,Total 9.3 mg/dL (8.5-10.1); Chloride 103 mmol/L (98-107); Creatinine, Serum 0.82 mg/dL (0.55-1.02); EST Glomerular Filtration Rate 74 mL/min (>60); Est Glom Filt Rate - Afr Amer 90 mL/min (>60); Estimated Creatinine Clearance 47.82 ml/min; Globulin 4.2 g/dL (2.2-4.2); Glucose 79 mg/dL (74-106); Potassium 4.2 mmol/L (3.5-5.1); Sodium Level 136 mmol/L (136-145)
--- NOTE | 2023-06-18 17:35 | EKG12_ITS ---
Test Reason : Blood Pressure : / mmHG Vent. Rate : 092 BPM Atrial Rate : 092 BPM P-R Int : 098 ms QRS Dur : 078 ms QT Int : 378 ms P-R-T Axes : 062 009 087 degrees QTc Int : 467 ms Sinus rhythm with short CT with Premature atrial complexes in a pattern of bigeminy ST & T wave abnormality, consider anterior ischemia Abnormal ECG Confirmed by ANAID CARMICHAEL, CLARISSE ([id number]), technical editor CATINA GALDAMEZ ([id number]) on 06/19/2023 9:17:56 AM Referred By: RAFA Confirmed By:CLARISSE WORRELL MD
--- NOTE | 2023-06-18 17:36 | NURSING ---
NO OLD EKGS
[2023-06-18 17:39] VITALS: PULSE 89; RESP 20; O2SAT 92
--- NOTE | 2023-06-18 17:42 | CT_ITS ---
ACR Level 3 findings have been noted. An addendum which confirms receipt of the report will follow. STUDY: CT ABDOMEN AND PELVIS WITH CONTRAST REASON FOR EXAM: Female, 68 years old. Abdominal distention, generalized pain, guarding RADIATION DOSAGE (If Supplied By Facility): CTDIvol = ( 10.70 ) mGy, DLP = ( 360.38 ) mGycm TECHNIQUE: Transaxial images were obtained from the dome of the diaphragm to the symphysis pubis without oral contrast. IV 100mL Isovue-300 was administered. Sagittal and coronal images were reconstructed. Individualized dose optimization techniques were used for this CT. COMPARISON: April 28, 2019 FINDINGS: There is emphysema and fibrotic densities of the lung bases The visualized portions of the heart are within normal limits. Normal liver. There are surgical clips in the gallbladder fossa consistent with a prior cholecystectomy. Normal spleen. Normal pancreas. Normal bilateral adrenal glands. Normal right kidney. Normal left kidney. Normal visualized stomach. There is focal dilatation of loops of right lower quadrant and pelvic loops of small intestine consistent with obstruction. There is focal wall thickening and transition point in the right lower abdomen. Normal colon. There is moderately abundant stool. The appendix is visualized and appears normal. There is diffuse atherosclerotic calcification of the abdominal aorta, without a demonstrated aneurysm. Normal inferior vena cava. Normal retroperitoneum. Normal urinary bladder. There is atrophy of the uterus. There is no free fluid in the abdomen or pelvis. Normal abdominal wall. Normal osseous structures. CT/Abdomen/Pelvis W IV Cont ONLY IMPRESSION: Small bowel obstruction. Electronically Signed: Eduardo Lundberg MD at 19:07 EDT ,
--- NOTE | 2023-06-18 18:04 | RAD_ITS ---
STUDY: X-RAY CHEST REASON FOR EXAM: Female, 68 years old. COPD, bilateral rales, hypoxia TECHNIQUE: PA and lateral views of the chest. COMPARISON: None. FINDINGS: There are monitoring devices. There is hyperinflation of the lungs consistent with chronic obstructive lung disease (COPD). There are mild lower lung interstitial increased opacities. There is no demonstrated pleural abnormality. Normal size heart. Normal mediastinum and cabrera. Normal visualized pulmonary arteries. There is atherosclerotic calcification of the aortic arch. Normal visualized thoracic spine. Normal visualized ribs, clavicles, and shoulders. There is no demonstrated abnormality of the visualized soft tissue structures of the upper abdomen. RAD/Chest PA and Lateral IMPRESSION: COPD with interstitial fibrosis or edema. Electronically Signed: Eduardo Lundberg MD at 19:12 EDT ,
--- NOTE | 2023-06-18 18:05 | EX.ED.DYSGE1 ---
HPI History of Present Illness Chief Complaint: Abd Pain Detail of Chief Complaint: Patient presented because of abdominal pain. She had diarrhea 3 days ago. Informant: patient and family Onset/Context/Timing Onset: Days Context: Sudden Onset Timing: Continuous Quality: Crampy achy Location: Generalized Current Severity: Mild Maximum Severity: Severe Worsened by: Nothing specific Relieved by: Nothing Associated Symptoms Associated Symptoms: Nausea and diarrhea 3 days ago Narrative Narrative: Patient is a 68-year-old woman with history of emphysema who wears oxygen at night at 2 L by nasal cannula presents because of generalized abdominal pain. She does report nausea. She had diarrhea 3 days ago. She was noted to be hypoxic on room air at 35%. EKG was ordered per nurse protocol. Patient denies fever, chills night sweats. Patient denies increased cough or shortness of breath from normal. She denies orthopnea or PND. She has not denies history of PE or DVT. She denies chest discomfort. She denies back pain. Denies leg pain, swelling discoloration. Prior similar symptoms: No Recent Illness/Hospitalization: No PFSH PFSH Medical History CHF (congestive heart failure) COPD (chronic obstructive pulmonary disease) HLD (hyperlipidemia) HTN (hypertension) Small bowel obstruction TIA (transient ischemic attack) Tobacco use Home Medications albuterol sulfate 2.5 mg/3 mL (0.083 %) solution for nebulization 2.5 mg inhalation Q4H PRN PRN Sob &/Or Wheezing 04/28/19 [History Last Taken Unknown] albuterol sulfate 90 mcg/actuation aerosol inhaler 2 puff inhalation Q4H PRN PRN Sob &/Or Wheezing 04/28/19 [History Last Taken Unknown] atorvastatin 20 mg tablet 20 mg PO QHS cholesterol 04/28/19 [History Last Taken Unknown] carvedilol 6.25 mg tablet 6.25 mg PO BID bp 04/28/19 [History Last Taken Unknown] citalopram 40 mg tablet 40 mg PO DAILY depression 04/28/19 [History Last Taken Unknown] clonidine HCl 0.1 mg tablet 0.1 mg PO BID bp 04/28/19 [History Last Taken Unknown] furosemide 40 mg tablet 40 mg PO DAILY water pill 04/28/19 [History Last Taken Unknown] levothyroxine 50 mcg tablet 50 mcg PO DAILY thyroid 04/28/19 [History Last Taken Unknown] loratadine 10 mg tablet 10 mg PO DAILY allergies 04/28/19 [History Last Taken Unknown] metoclopramide HCl 10 mg tablet 10 mg PO 4X/DAY gerd 04/28/19 [History Last Taken Unknown] mirtazapine 15 mg tablet 15 mg PO QHS sleep 04/28/19 [History Last Taken Unknown] montelukast 10 mg tablet 10 mg PO DAILY allergies 04/28/19 [History Last Taken Unknown] nitroglycerin 0.4 mg sublingual tablet 0.4 mg SL DAILY PRN PRN chest pain 04/28/19 [History Last Taken Unknown] omeprazole 20 mg capsule,delayed release 40 mg PO BID gerd 04/28/19 [History Last Taken Unknown] ranitidine HCl 300 mg tablet 300 mg PO BID gerd 04/28/19 [History Last Taken Unknown] spironolactone 25 mg tablet 25 mg PO DAILY breathing 04/28/19 [History Last Taken Unknown] trazodone 50 mg tablet 50 mg PO QHS sleep 04/28/19 [History Last Taken Unknown] umeclidinium 62.5 mcg/actuation blister powder for inhalation 1 puff inhalation DAILY copd 04/28/19 [History Last Taken Unknown] Allergy/AdvReac Type Severity Reaction Status Date / Time codeine Allergy Anaphylaxis Verified 06/18/23 15:42 Penicillins [PCN] Allergy Anaphylaxis Verified 06/18/23 15:42 Family History (Updated 06/18/23 @ 19:[address] Brittani Wright MD) Mother Breast cancer Father Heart disease Myocardial infarction Hypertension CAD (coronary artery disease) Surgical History (Updated 06/18/23 @ 19:[address] Brittani Wright MD) History of cholecystectomy History of colon surgery Hx of tubal ligation Social History (Updated 06/18/23 @ 18:[address] Ed Walsh MD) household members: spouse Smoking Status: Current every day smoker tobacco type: cigarettes Smoking packs per day: 0.5 Smoking cigarettes per day: 10.0 alcohol intake: current alcohol intake frequency: holidays/special occasions only substance use type: does not use ROS ROS ED Constitutional Constitutional ED: Denies chills, fever(s), subjective, sweats or weight loss Eyes Eyes: Denies blurry vision, change in vision or diplopia ENT ENT ED: Denies ear pain, rhinorrhea or sore throat Cardiovascular Cardiovascular: Denies chest pain, orthopnea, palpitations, paroxysmal nocturnal dyspnea or racing heartbeat Respiratory/Chest Respiratory/Chest: Reports cough; Denies dyspnea, dyspnea on exertion, orthopnea or paroxysmal nocturnal dyspnea Gastrointestinal Gastrointestinal: Reports abdominal pain, diarrhea and nausea; Denies constipation, melena or vomiting Genitourinary Genitourinary ED: Denies dysuria, hematuria or urinary frequency Musculoskeletal Musculoskeletal: Denies arthralgias, back pain, myalgias or neck pain Integumentary Denies abscess, Abrasions or rash Neurologic Neurologic: Denies headache(s), paresthesias or weakness Endocrine Endocrinology: Denies cold intolerance or heat intolerance Hematologic/Lymphatic Hematologic/Lymphatic: Reports systems reviewed and no addt'l complaints, except as documented EXAM Physical Exam Const Vital Signs: 06/18/23 15:42 06/18/23 16:20 06/18/23 17:34 Temperature 98.4 F Temperature Source Temporal Pulse Rate 124 H Respiratory Rate 19 H Respiratory Effort Normal Respiratory Depth Normal Respiratory Pattern Normal Blood Pressure 136/103 H Blood Pressure Mean 114 Pulse Ox 85 95 Oxygen Delivery Method Room Air Nasal Cannula Oxygen Flow Rate (L/min) 2 06/18/23 17:39 Temperature Temperature Source Pulse Rate 89 Respiratory Rate 20 H Respiratory Effort Respiratory Depth Respiratory Pattern Blood Pressure Blood Pressure Mean Pulse Ox 92 Oxygen Delivery Method Nasal Cannula Oxygen Flow Rate (L/min) 2 Positive well nourished and well developed Constitutional Narrative: Patient does not look well. She does not appear in any discomfort. General Appearance ED: well developed and NAD; Negative for pallor HEENT Reports dry mucous membranes HEENT Narrative: Head is atraumatic normocephalic. Ears normal. Nares patent. Posterior pharynx is normal. Uvula is midline. Mouth ED: Yes dry mucous membranes Mouth: dry mucous membranes Eyes PERRL General Eye ED: Negative for pale conjunctiva or scleral icterus Neck no lymphadenopathy, supple and no JVD Neck Narrative: Trachea is midline. There stridor. Chest Wall inspection of chest normal and palpation of chest normal Resp normal respiratory effort and No clear to auscultation bilaterally Auscultation: rales bilateral base Cardio regular rate, regular rhythm, S1 normal heart sound, S2 normal heart sound and no murmurs GI normal to inspection, nondistended, normoactive bowel sounds and no masses; Negative for non-tender, non-distended or hepatosplenomegaly Inspection: abdominal distention Auscultation: normoactive bowel sounds Palpation: soft and tender other (Diffuse); Negative for guarding, splenomegaly, mass or rebound tenderness present Back/Spine no CVA tenderness Cervical Spine: Negative for cervical spine tenderness Thoracic Spine / Upper Back: Negative for thoracic spinal tenderness Lumbar Spine / Lower Back: Negative for lumbar spinal tenderness Extremity normal to inspection General Extremety ED: Negative for edema or tenderness General Extremity: Negative for edema Neuro oriented x3, CN's II-XII intact bilaterally and no sensory deficits noted Psych mental status grossly normal Skin no rashes or lesions noted, no wounds and No skin turgor normal General Skin Exam: Negative for elasticity normal, jaundice or pallor MDM MDM MDM Narrative Medical decision making narrative: Patient's hypoxia may be due to chronic COPD that has worsened. We will trend chest x-ray to assess for pneumothorax and infiltrate. Because patient has abdominal pain distention will obtain CT since there is prior history of partial small bowel obstruction based on review of prior records. Nurse put in protocol orders to begin with. History & Record Review Discussion w/independent historian: Patient and Family Lab Data Attestation: I reviewed the patient's lab results. Lab results narrative: CBC is remarkable elevated H&H compared to baseline. [facility] metabolic panel is remarkable for an elevated BUN to creatinine ratio of 34:1. BUN is 28 with a creatinine of 0.8. Labs: Laboratory Results - last 24 hr 06/18/23 16:53 WBC 9.2 RBC 5.07 Hgb 16.0 H Hct 49.8 H MCV 98.2 MCH 31.6 MCHC 32.1 RDW Std Deviation 63.1 H RDW Coeff of Edouard 17.8 H Plt Count 342 MPV 9.9 Immature Gran % (Auto) 0.400 Neut % (Auto) 67.5 Lymph % (Auto) 20.4 Summers % (Auto) 10.4 H Eos % (Auto) 0.5 Baso % (Auto) 0.8 Absolute Neuts (auto) 6.2 Absolute Lymphs (auto) 1.87 Nucleated RBC % 0 Sodium 136 Potassium 4.2 Chloride 103 Carbon Dioxide 21.0 Anion Gap 12 BUN 28 H Creatinine 0.82 Estim Creat Clear Calc 47.82 Est GFR (MDRD) Af Amer 90 Est GFR (MDRD) Non-Af 74 BUN/Creatinine Ratio 34.2 H Glucose 79 Calcium 9.3 Total Bilirubin 0.60 AST 23 ALT 23 Alkaline Phosphatase 113 Total Protein 8.0 Albumin 3.8 Globulin 4.2 Albumin/Globulin Ratio 0.9 Radiography Chest X-Ray - ED: 2 View and Read by ED Physician (Chronic changes with hyperaeration. Cardiac silhouette and size normal. Perihilar region normal. Osseous structures are normal. This is independent reviewed interpreted by me at 1829.) Diagnostic Testing: Clinical Impression(s) from Imaging Studies Abdomen/Pelvis CT 06/18/23 17:42 IMPRESSION: Small bowel obstruction. Electronically Signed: Eduardo Lundberg MD at 19:07 EDT , EKG Initial EKG: Attestation: I personally reviewed and interpreted this EKG as follows: Interpretation: Sinus Rhythm (Rate is 92. There is a short MT interval with MT interval of 98 ms. Cures duration 78 ms. QT durations 178 ms. [place] is normal. There are nonspecific ST wave change as well as artifact. There is also evidence of frequent premature atrial complexes and was a run of atrial bigeminy.) Procedures Other Procedures Procedure(s): The staff was unable to pass NG. Patient had lidocaine instilled into the right and left naris. Patient states she is able to breathe more easily through the left. The NG was placed by me without difficulty. Will obtain x-ray to confirm position. Discharge Plan Triage Chief Complaint: Abd Pain ED Provider: Ed Walsh Dx/Rx/DC Orders Clinical Impression: Partial small bowel obstruction, HLD (hyperlipidemia), Hypoxia, COPD (chronic obstructive pulmonary disease), HTN (hypertension) Prescriptions: No Action omeprazole 20 MG capsule 40 mg PO BID furosemide 40 MG tablet 40 mg PO DAILY clonidine HCl 0.1 MG tablet 0.1 mg PO BID carvedilol 6.25 MG tablet 6.25 mg PO BID atorvastatin 20 MG tablet 20 mg PO QHS albuterol sulfate 2.5 MG/3 ML solution for nebulization 2.5 mg inhalation Q4H PRN PRN (Reason: Sob &/Or Wheezing) citalopram 40 MG tablet 40 mg PO DAILY levothyroxine 50 MCG tablet 50 mcg PO DAILY nitroglycerin 0.4 MG tablet, sublingual 0.4 mg SL DAILY PRN PRN (Reason: chest pain) montelukast 10 MG tablet 10 mg PO DAILY mirtazapine 15 MG tablet 15 mg PO QHS albuterol sulfate 1 INHALER inhaler 2 puff inhalation Q4H PRN PRN (Reason: Sob &/Or Wheezing) loratadine 10 MG tablet 10 mg PO DAILY metoclopramide HCl 10 MG tablet 10 mg PO 4X/DAY umeclidinium 1 PUFF inhaler 1 puff inhalation DAILY trazodone 50 MG tablet 50 mg PO QHS ranitidine HCl 300 MG tablet 300 mg PO BID spironolactone 25 MG tablet 25 mg PO DAILY Primary Care Provider: Salvatore Mathews Referrals: Salvatore Mathews PA [Primary Care Provider] - Disposition Disposition: Acute Care [facility]
[2023-06-18] MEDS: Oxymetazoline 0.05% 1 SPRAY SPRAY.BTL 2 SPRAY NASAL (19:19)
--- NOTE | 2023-06-18 19:26 | HP.PCM.HOS_ITS ---
HPI - General General Date of Admission: 06/18/23 Date of Service: 06/18/23 Chief Complaint: Nausea, abdominal pain. HPI Narrative The patient is a 68 y/o F w/ PMHx: Rheumatoid arthritis, Hx SBO (Exploratory laparoscopy with lysis of adhesion and release for small bowel obstruction 2018), COPD with chronic hypoxic respiratory failure 2 L NC, Anxiety and Depression, Hypothyroidism, HTN, HLD, Hx TIA, Tobacco use who presents to the [facility] [place] [facility] on 06/18/23 with history of initially onset of diarrhea 3 days prior to current presentation with associated nausea without emesis and progressively worsening cramping aching abdominal discomfort with no recent fever, chills, cough or dyspnea however given ongoing abdominal pain prompted eventual ED evaluation. She reported pain prior as moderate to severe -09/01 in severity, now improved s/p NGT placement 03/02. She initially was unsure about pain medications she is able to take but was clarified with her daughter and she has tolerated morphine prior. Work-up in the ED included T98.4, heart rate initially 124 with most recent repeat 89, BP 136/103, respiratory rate 19, initially 85% on room air with improvement to 92% on 2 L nasal cannula, CBC with WBC 9.2, hemoglobin 16, platelet 342 without marked shift, CMP not marked appearing, BUN/creatinine 28/0.82, chest x-ray with COPD with interstitial fibrosis and edema, CT abdomen and pelvis with notable emphysema and fibrotic densities at t he lung bases with visualized portions of the heart normal with evidence of a small bowel obstruction. In the ED NG tube placed and ED discussed case with general surgery. PFSH Medical History CHF (congestive heart failure) COPD (chronic obstructive pulmonary disease) HLD (hyperlipidemia) HTN (hypertension) Rheumatoid arthritis Small bowel obstruction TIA (transient ischemic attack) Tobacco use Home Medications albuterol sulfate 2.5 mg/3 mL (0.083 %) solution for nebulization 2.5 mg inhalation Q4H PRN PRN Sob &/Or Wheezing 04/28/19 [History Last Taken Unknown] albuterol sulfate 90 mcg/actuation aerosol inhaler 2 puff inhalation Q4H PRN PRN Sob &/Or Wheezing 04/28/19 [History Last Taken Unknown] furosemide 40 mg tablet 40 mg PO DAILY water pill 04/28/19 [History Last Taken Unknown] levothyroxine 50 mcg tablet 50 mcg PO DAILY thyroid 04/28/19 [History Last Taken Unknown] loratadine 10 mg tablet 10 mg PO DAILY allergies 04/28/19 [History Last Taken Unknown] mirtazapine 15 mg tablet 15 mg PO QHS sleep 04/28/19 [History Last Taken Unknown] montelukast 10 mg tablet 10 mg PO DAILY allergies 04/28/19 [History Last Taken Unknown] nitroglycerin 0.4 mg sublingual tablet 0.4 mg SL DAILY PRN PRN chest pain 04/28/19 [History Last Taken Unknown] omeprazole 20 mg capsule,delayed release 40 mg PO BID gerd 04/28/19 [History Last Taken Unknown] spironolactone 25 mg tablet 25 mg PO DAILY breathing 04/28/19 [History Last Taken Unknown] buspirone 15 mg tablet 15 mg PO TID PRN 06/18/23 [History Last Taken Unknown] fluticasone fur. 100 mcg-umeclid 62.5 mcg-vilant 25 mcg inhalat.powder (Trelegy Ellipta) 1 inh inhalation Q24H 06/18/23 [History Last Taken Unknown] folic acid 1 mg tablet 1 mg PO DAILY 06/18/23 [History Last Taken Unknown] gabapentin 800 mg tablet 800 mg PO QHS 06/18/23 [History Last Taken Unknown] hydroxychloroquine 200 mg tablet 200 mg PO DAILY 06/18/23 [History Last Taken Unknown] losartan 50 mg tablet 50 mg PO DAILY 06/18/23 [History Last Taken Unknown] methotrexate sodium 2.5 mg tablet 15 mg PO SA 06/18/23 [History Last Taken Unknown] Allergy/AdvReac Type Severity Reaction Status Date / Time codeine Allergy Anaphylaxis Verified 06/18/23 15:42 Penicillins [PCN] Allergy Anaphylaxis Verified 06/18/23 15:42 Family History (Updated 06/18/23 @ 19:[address] Brittani Wright MD) Mother Breast cancer Father Heart disease Myocardial infarction Hypertension CAD (coronary artery disease) Surgical History (Updated 06/18/23 @ 20:[address] Brittani Wright MD) History of cholecystectomy History of colon surgery Hx of tubal ligation Social History (Updated 06/18/23 @ 19:[address] Brittani Wright MD) household members: spouse Smoking Status: Current every day smoker tobacco type: cigarettes Smoking packs per day: 0.5 Smoking cigarettes per day: 10.0 alcohol intake: current alcohol intake frequency: holidays/special occasions only substance use type: does not use ROS ROS Narrative Admission Review of Systems: CONSTITUTIONAL: No weight loss, fever, chills, + weakness or fatigue. HEENT: Eyes: No visual loss, blurred vision, double vision or yellow sclerae. Ears, Nose, Throat: No hearing loss, sneezing, congestion, runny nose or sore throat. SKIN: No rash or itching, lesions, wounds. CARDIOVASCULAR: No chest pain, chest pressure or chest discomfort, palpitations, edema, orthopnea, syncopal events. RESPIRATORY: + shortness of breath, No cough or sputum, wheezing, hemoptysis. GASTROINTESTINAL: + anorexia, nausea, diarrhea transiently, abdominal pain. No vomiting, melena, BRBPR. GENITOURINARY: No dysuria, frequency, urgency or retention. NEUROLOGICAL: No headache, dizziness, syncope, paralysis, ataxia, numbness or tingling in the extremities, focal weakness, change in bowel or bladder control, seizure. MUSCULOSKELETAL: + muscle, back pain, joint pain or stiffness. HEMATOLOGIC: No anemia, bleeding or bruising. LYMPHATICS: No enlarged nodes. No history of splenectomy. PSYCHIATRIC: + history of depression or anxiety. ENDOCRINOLOGIC: No reports of sweating, cold or heat intolerance. No polyuria or polydipsia. ALLERGIES: + history of anaphylaxis, allergic rhinitis. Vital Signs Vital Signs Vital Signs: 06/18/23 15:42 06/18/23 16:20 06/18/23 17:34 Temperature 98.4 F Temperature Source Temporal Pulse Rate 124 H Respiratory Rate 19 H Respiratory Effort Normal Respiratory Depth Normal Respiratory Pattern Normal Blood Pressure 136/103 H Blood Pressure Mean 114 Pulse Ox 85 95 Oxygen Delivery Method Room Air Nasal Cannula Oxygen Flow Rate (L/min) 2 06/18/23 17:39 Temperature Temperature Source Pulse Rate 89 Respiratory Rate 20 H Respiratory Effort Respiratory Depth Respiratory Pattern Blood Pressure Blood Pressure Mean Pulse Ox 92 Oxygen Delivery Method Nasal Cannula Oxygen Flow Rate (L/min) 2 Weight Weight: 107 lb 6.4 oz Body Mass Index (BMI) 20.9 Physical Exam Narrative Physical Examination: General: Awake, alert, oriented x 3 and cooperative, seated upright in ED bed, fatigued, status post NG tube placement, notes pain has improved somewhat. Skin: Normal color, normal turgor, no icterus, no cyanosis. HEENT: AT/NC, EOMI, PERRLA, dry MM, NGT in place, no carotid bruits or JVD noted. Lungs: Diminished, greater bases, moderate effort, no evidence of any respiratory distress, no rales, ronchi or wheezing. Heart: Currently regular rate and rhythm; no gallop, rub audible. Abdomen: Soft, mild generalized discomfort but no rebound or guarding and she notes certainly improved since prior, currently no marked distention, absent bowel sounds, no obvious HSM. Extremities: No cyanosis, clubbing, or edema. Neurological: Patient awake, alert, oriented x 3, cognitive function intact; pupils equally reactive to light and accommodation, cranial nerves II-XII grossly normal, moving all 4 extremities, no focal deficits, strength moderately to severely globally decreased secondary to acute presentation. Psychiatric: Affect appears fatigued, no acute evidence of depressive or anxiety feelings but does have underlying history. Results Lab / Micro Data 06/18/23 16:53 06/18/23 16:53 Labs: Laboratory Results - last 24 hr 06/18/23 16:53: WBC 9.2, RBC 5.07, Hgb 16.0 H, Hct 49.8 H, MCV 98.2, MCH 31.6, MCHC 32.1, RDW Std Deviation 63.1 H, RDW Coeff of [place]ouard 17.8 H, Plt Count 342, MPV 9.9, Immature Gran % (Auto) 0.400, Neut % (Auto) 67.5, Lymph % (Auto) 20.4, [place] % (Auto) 10.4 H, Eos % (Auto) 0.5, Baso % (Auto) 0.8, Absolute Neuts (auto) 6.2, Absolute Lymphs (auto) 1.87, Nucleated RBC % 0, Sodium 136, Potassium 4.2, Chloride 103, Carbon Dioxide 21.0, Anion Gap 12, BUN 28 H, Creatinine 0.82, Estim Creat Clear Calc 47.82, Est GFR (MDRD) Af Amer 90, Est GFR (MDRD) Non-Af 74, BUN/Creatinine Ratio 34.2 H, Glucose 79, Calcium 9.3, Total Bilirubin 0.60, AST 23, ALT 23, Alkaline Phosphatase 113, Total Protein 8.0, Albumin 3.8, Globulin 4.2, Albumin/Globulin Ratio 0.9 Radiology Impression Abdomen/Pelvis CT 06/18/23 17:42 IMPRESSION: Small bowel obstruction. Electronically Signed: Eduardo Lundberg MD at 19:07 EDT , ADDENDUM: 06/18/23 1918 IMPRESSION: Small bowel obstruction. N.B. : Ed Walsh MD, confirmed on 06/18/2023 19:11:42 (ET) that the healthcare facility has received the radiology report. Electronically Signed: Eduardo Lundberg MD at 19:07 EDT , Chest X-Ray 06/18/23 18:04 IMPRESSION: COPD with interstitial fibrosis or edema. Electronically Signed: Eduardo Lundberg MD at 19:12 EDT , Assessment & Plan Assessment/Plan (1) Small bowel obstruction: PLAN: Plan The patient is a 68 y/o F w/ PMHx: Rheumatoid arthritis, Hx SBO (Exploratory laparoscopy with lysis of adhesion and release for small bowel obstruction 2018), COPD with chronic hypoxic respiratory failure 2 L NC, Anxiety and Depression, Hypothyroidism, HTN, HLD, Hx TIA, Tobacco use who presents to the [facility] [place] [facility] on 06/18/23 with history of initially onset of diarrhea 3 days prior to current presentation with associated nausea without emesis and progressively worsening cramping aching abdominal discomfort. #1. Abdominal pain, nausea w/ SBO: Will admit to MS, maintain on IVFs, continue NGT to suction, strict I&Os, IV pain/anti-emetics PRN, serial KUB as needed to montior bowel function, PPI IV, maintain NPO on bowel rest. General surgery consulted, pending evaluation. Discussed with general surgeon who is concerned the patient may need to go back to the OR and given her history will request echocardiogram to be cautious. Stress testing 2020 negative at that time. No recent significant chest discomfort, pressure or pain. She does have chronic supplementation usage with COPD with dyspnea associated with this but this has been stable. If operative intervention necessary would agree to progression to OR emergently, otherwise in the interim as discussed with surgery will obtain ECHO and improve pulmonary status as able. #2. Chronic COPD with allergic rhinitis with chronic hypoxic respiratory fail ure 2 L NC: We will continue patient home chronic oxygen supplementation, we will temporarily hold him inhalers and in the interim we will transition to ATC budesonide therapy, PRN albuterol, HOB, IS parameters. Temporarily holding patient home loratadine as well as Singulair regimen. #3. Hypertension: Holding all oral regimen, in the interim we will place on IV hydralazine. Given unclear CHF history of necessary may also pulsed dose with IV Lasix. We will transition patient clonidine p.o. regimen to a patch to avoid rebound significant hypertension. #4. Hyperlipidemia: We will hold patient home statin therapy. #5. CHF, unclear type: Noted in history, temporally holding all oral regimen given acute presentation as noted, will judiciously hydrate as needed and as noted above may consider pulse dose IV Lasix if necessary. Patient with chronic dyspnea but more so related with her underlying COPD and chronic supplementation with no specific chest discomfort, chest pressure or pain. No echocardiogram in the system thus will request per discussion with surgery. There is a noted stress test from 2020 that was negative at that time #6. Hypothyroidism: We will temporarily hold patient home levothyroxine regimen and as long as not prolonged this would not be an issue however if necessary may consider one half IV dosing if needed. #7. Tobacco Abuse: Encouraged cessation, inpatient consultation per RT, declined NR. #8. Hx TIA: Temporally holding patient home aspirin, statin, hypertensive regimen as noted, resume once appropriate. #9. Anxiety and depression: Temporarily holding patient home trazodone, mirtazapine and citalopram home regimen, resume once oral intake appropriate. #10. Rheumatoid arthritis: We will hold patient home methotrexate and folic acid supplementation temporarily. #11. GERD: IV PPI. #12. DVT prophylaxis: SCDs, hold chemoprophylaxis as surgeon believes patient potentially may need operative intervention. Charges/Coding Visit Charges Inpatient E&M: 41508 Init Hosp L3
--- NOTE | 2023-06-18 19:50 | RAD_ITS ---
STUDY: X-RAY - ABDOMEN REASON FOR EXAM: Female, 68 years old. Confirm position of NG -- KUB with both diaphragms for NG/OG Verification TECHNIQUE: Single AP view of the abdomen . COMPARISON: April 30, 2019 FINDINGS: Normal visualized lung bases. There is an unremarkable bowel gas pattern. There is no demonstrated free abdominal air. Feeding tube extends to the distal stomach or duodenum in the right upper quadrant. There are surgical clips in the right upper abdomen. There is contrast in the urinary collecting system. Normal visualized osseous structures. RAD/Abdomen Single View (Portable) IMPRESSION: Feeding tube extends to the distal stomach or duodenum. Electronically Signed: Eduardo Lundberg MD at 20:57 EDT ,
[2023-06-18] MEDS: Ondansetron 4 MG/2 ML Vial IV (19:55)
[2023-06-18] MEDS: Lidocaine Jelly 2% 20 ML Syringe (URO-JET) 1 APPLIC TOPICAL (19:56)
--- NOTE | 2023-06-18 20:32 | CON.PCM.SX_ITS ---
Assessment & Plan Assessment/Plan (1) Small bowel obstruction: PLAN: This is a 68-year-old female with a complex past surgical history?notably for cardiopulmonary disease and ongoing tobacco use?who presents with signs and symptoms of a small bowel obstruction. She has a history of these and has required at least 2 prior surgeries due to adhesive disease. Unfortunately the details of these histories are incomplete, but to the best of her recollection, Ms. Ferrer believes that she has been well since her diagnostic laparoscopy in April 2019. Her exam is overall reassuring with minimal abdominal distention and minimal tenderness. She is focally tender right where the small bowel is dilated on CT exam. I have independently reviewed patient's CT imaging and find a significant narrowing of her distal small bowel as well as significant tortuosity. This suggests further adhesive disease influence. Based on this assessment, I have shared with patient and her daughter that I would be concerned she would require another operation to resolve this issue, however, I believe we must attempt conservative measures given her numerous other comorbidities. Therefore recommend: ? Strict n.p.o. with IV fluid support ? NG tube to low intermittent wall suction ? Strict intake and output measurements ? Daily electrolytes and replete as necessary ? Initiation of risk stratification by hospitalist service for patient's risk for possible surgery ? Follow-up requested daughter to obtain updated medication list inclusive of medications initiated by rheumatology for psoriatic arthritis ? Obtain records from [facility] for Dr. Ochoa's prior operation HPI Consult Data Date of Consult: 06/18/23 HPI Narrative Reason for Consultation: Small bowel obstruction HPI Narrative: VIGNESH FERRER, is a 68 F who presents to [facility] with complai nts of acute onset nausea, vomiting, and associated abdominal pain beginning 3 days ago. She denies eating any unusual foods and believes her last meal was some cereal with iced tea. After that point she experienced what she describes as an upset stomach that was associated with some vomiting and diarrhea. She notes that her diarrhea did not last long, but she has remained unable to tolerate any food or drink. She denies any fevers or chills. She denies any sick contacts. She confirms this feels similar to her prior bowel obstructions. ED work-up is notable for biochemistries that showed electrolytes to largely be within normal limits. Patient has no elevated white blood cell count. CT imaging is concerning for bowel obstruction with dilated loop of distal small bowel and transition point in the area of the terminal ileum in the right lower quadrant. As above, patient has had prior small bowel obstructions. Her daughter joins midway through our visit and states she is only aware of a surgery with Dr. Ochoa at [facility] approximately 4 years ago, however, patient certainly underwent diagnostic laparoscopy with lysis of adhesions for an internal hernia with Dr. Quach in April 2019. EMR suggest that patient has had prior colon surgery, but neither daughter nor patient can recall any such operation. To her recollection, patient's only other additional history was a laparoscopic cholecystectomy and a tubal ligation. Patient has significant COPD and is a current tobacco user (now estimated half pack per day). Her daughter states that she only uses home oxygen at night, but was due for evaluation for possible continuous use. She is also diagnosed with psoriatic arthritis and reportedly saw a aquatics lifeguard recently who completed a small bowel series before starting her on medication 6 times a day. Unfortunately we do not have the names of the medications that have been initiated. Patient states that she has shortness of breath at rest, but is unable to describe any recent congestive heart failure episodes. PFSH Medical History CHF (congestive heart failure) COPD (chronic obstructive pulmonary disease) HLD (hyperlipidemia) HTN (hypertension) Small bowel obstruction TIA (transient ischemic attack) Tobacco use Home Medications albuterol sulfate 2.5 mg/3 mL (0.083 %) solution for nebulization 2.5 mg inhalation Q4H PRN PRN Sob &/Or Wheezing 04/28/19 [History Last Taken Unknown] albuterol sulfate 90 mcg/actuation aerosol inhaler 2 puff inhalation Q4H PRN PRN Sob &/Or Wheezing 04/28/19 [History Last Taken Unknown] atorvastatin 20 mg tablet 20 mg PO QHS cholesterol 04/28/19 [History Last Taken Unknown] carvedilol 6.25 mg tablet 6.25 mg PO BID bp 04/28/19 [History Last Taken Unknown] citalopram 40 mg tablet 40 mg PO DAILY depression 04/28/19 [History Last Taken Unknown] clonidine HCl 0.1 mg tablet 0.1 mg PO BID bp 04/28/19 [History Last Taken U nknown] furosemide 40 mg tablet 40 mg PO DAILY water pill 04/28/19 [History Last Taken Unknown] levothyroxine 50 mcg tablet 50 mcg PO DAILY thyroid 04/28/19 [History Last Taken Unknown] loratadine 10 mg tablet 10 mg PO DAILY allergies 04/28/19 [History Last Taken Unknown] metoclopramide HCl 10 mg tablet 10 mg PO 4X/DAY gerd 04/28/19 [History Last Taken Unknown] mirtazapine 15 mg tablet 15 mg PO QHS sleep 04/28/19 [History Last Taken Unknown] montelukast 10 mg tablet 10 mg PO DAILY allergies 04/28/19 [History Last Taken Unknown] nitroglycerin 0.4 mg sublingual tablet 0.4 mg SL DAILY PRN PRN chest pain 04/28/19 [History Last Taken Unknown] omeprazole 20 mg capsule,delayed release 40 mg PO BID gerd 04/28/19 [History Last Taken Unknown] ranitidine HCl 300 mg tablet 300 mg PO BID gerd 04/28/19 [History Last Taken Unknown] spironolactone 25 mg tablet 25 mg PO DAILY breathing 04/28/19 [History Last Taken Unknown] trazodone 50 mg tablet 50 mg PO QHS sleep 04/28/19 [History Last Taken Unknown] umeclidinium 62.5 mcg/actuation blister powder for inhalation 1 puff inhalation DAILY copd 04/28/19 [History Last Taken Unknown] Allergy/AdvReac Type Severity Reaction Status Date / Time codeine Allergy Anaphylaxis Verified 06/18/23 15:42 Penicillins [PCN] Allergy Anaphylaxis Verified 06/18/23 15:42 Family History (Updated 06/18/23 @ 19:[address] Brittani Wright MD) Mother Breast cancer Father Heart disease Myocardial infarction Hypertension CAD (coronary artery disease) Surgical History (Updated 06/18/23 @ 19:[address] Brittani Wright MD) History of cholecystectomy History of colon surgery Hx of tubal ligation Social History (Updated 06/18/23 @ 19:[address] Brittani Wright MD) household members: spouse Smoking Status: Current every day smoker tobacco type: cigarettes Smoking packs per day: 0.5 Smoking cigarettes per day: 10.0 alcohol intake: current alcohol intake frequency: holidays/special occasions only substance use type: does not use Physical Exam Const alert and oriented x3 Constitutional Narrative: Appears older than stated age and frail General Appearance: cooperative Resp Resp Narrative: Breathing is somewhat labored and pulse oximetry shows patient's oxygenation in the 80s GI GI Narrative: Nasogastric tube in place with minimal bilious output. Patient's abdomen is largely nondistended, soft, and tender focally in the right abdominal quadrants. There is no guarding. Patient has well-healed lower midline laparotomy incision as well as several port site incisions Lab / Micro Data 06/18/23 16:53 06/18/23 16:53 Labs: Laboratory Results - last 24 hr 06/18/23 16:53: WBC 9.2, RBC 5.07, Hgb 16.0 H, Hct 49.8 H, MCV 98.2, MCH 31.6, MCHC 32.1, RDW Std Deviation 63.1 H, RDW Coeff of [place]ouard 17.8 H, Plt Count 342, MPV 9.9, Immature Gran % (Auto) 0.400, Neut % (Auto) 67.5, Lymph % (Auto) 20.4, [place] % (Auto) 10.4 H, Eos % (Auto) 0.5, Baso % (Auto) 0.8, Absolute Neuts (auto) 6.2, Absolute Lymphs (auto) 1.87, Nucleated RBC % 0, Sodium 136, Potassium 4.2, Chloride 103, Carbon Dioxide 21.0, Anion Gap 12, BUN 28 H, Creatinine 0.82, Estim Creat Clear Calc 47.82, Est GFR (MDRD) Af Amer 90, Est GFR (MDRD) Non-Af 74, BUN/Creatinine Ratio 34.2 H, Glucose 79, Calcium 9.3, Total Bilirubin 0.60, AST 23, ALT 23, Alkaline Phosphatase 113, Total Protein 8.0, Albumin 3.8, Globulin 4.2, Albumin/Globulin Ratio 0.9 Radiology Impression Abdomen/Pelvis CT 06/18/23 17:42 IMPRESSION: Small bowel obstruction. Electronically Signed: Eduardo Lundberg MD at 19:07 EDT , ADDENDUM: 06/18/231917 IMPRESSION: Small bowel obstruction. N.B. : Ed Walsh MD, confirmed on 06/18/2023 19:11:42 (ET) that the healthcare facility has received the radiology report. Electronically Signed: Eduardo Lundberg MD at 19:07 EDT , Chest X-Ray 06/18/23 18:04 IMPRESSION: COPD with interstitial fibrosis or edema. Electronically Signed: Eduardo Lundberg MD at 19:12 EDT , Charges/Coding Visit Charges Inpatient E&M: 11465 Init Hosp L2
[2023-06-18 20:37] VITALS: BP 167/72; PULSE 84; RESP 19; TEMP 36.6; O2SAT 93
--- NOTE | 2023-06-18 21:19 | ECHOD_ITS ---
Reason For Study: CHF Procedure This was a 2D Doppler, Color Flow transthoracic echocardiogram. Exam performed portable in patient room. Left Ventricle Normal left ventricle. Left ventricular systolic function is normal. The estimated ejection fraction is 60 %. No regional wall motion abnormalities noted. Right Ventricle Normal RV size. Normal systolic function. Atria Normal left atrium. Normal right atrium. Mitral Valve Normal mitral valve. Tricuspid Valve Normal tricuspid valve. Aortic Valve The aortic valve is not well visualized. Pulmonic Valve The pulmonic valve is not well visualized. Great Vessels Normal aortic root. The pulmonary artery is normal size. Normal inferior vena cava. Pericardium/Pleural No pericardial effusion. MMode/2D Measurements & Calculations LVIDd: 4.8 cm IVSd: 0.74 cm Ao root diam: 3.2 cm LVIDs: 3.2 cm LVPWd: 1.3 cm RVDd: 2.0 cm FS: 32.2 % LAV(MOD-bp): 46.4 ml LVAd ap4: 21.2 cm2 SV(MOD-sp4): 38.6 ml LAV(MOD-bp) Indexed: 32.3 ml/m2 LVLd ap4: 7.5 cm LAV(MOD-sp2): 47.2 ml EDV(MOD-sp4): 51.3 ml LAV(MOD-sp4): 40.5 ml EDV(sp4-el): 50.6 ml LVAs ap4: 9.4 cm2 LVLs ap4: 5.9 cm ESV(MOD-sp4): 12.7 ml ESV(sp4-el): 12.6 ml EF(MOD-sp4): 75.2 % EF(sp4-el): 75.0 % SV(sp4-el): 38.0 ml LA A4 area: 16.9 cm2 RA A4 area: 12.1 cm2 TAPSE: 1.9 cm Time Measurements MV dec time: 0.23 sec Doppler Measurements & Calculations MV E max aleksandr: 66.1 cm/sec Lat Peak E' Aleksandr: 10.0 cm/sec Med Peak E' Aleksandr: 8.6 cm/sec MV A max aleksandr: 83.6 cm/sec E/E' lat: 6.6 E/E' med: 7.7 MV E/A: 0.79 MV V2 max: 93.4 cm/sec MV dec slope: 291.4 cm/sec2 Ao V2 max: 140.4 cm/sec MV max P.5 mmHg Ao max P.9 mmHg MV V2 mean: 47.7 cm/sec Ao V2 mean: 97.9 cm/sec MV mean P.2 mmHg Ao mean P.3 mmHg MV V2 VTI: 31.0 cm Ao V2 VTI: 30.0 cm AV (velocity ratio): 0.85 LV V1 max: 132.3 cm/sec LV V1 max P.0 mmHg LV V1 mean P.6 mmHg LV V1 mean: 89.0 cm/sec LV V1 VTI: 25.6 cm ECHO/Echo Complete Interpretation Summary Normal left ventricle. Left ventricular systolic function is normal. The estimated ejection fraction is 60 %. Ordering Physician: Brittani Wright Referring Physician: KHOA ALCALA Performed By: Aubree Basilio RCS
[2023-06-18 22:03] VITALS: BP 155/69; PULSE 78; RESP 20; TEMP 36.6; O2SAT 94
[2023-06-18 22:05] VITALS: BMI 21.2
[2023-06-18] MEDS: 0.9% Normal Saline 1,000 ML 100 ML IV (22:19)
[2023-06-19] VITALS (11 sets, daily range): BP systolic 128–180; BP diastolic 65–89; PULSE 40–77; RESP 18–22; TEMP 36.4–36.7; O2SAT 90–95; BMI 21.3
[2023-06-19] MEDS: Phenol/Sodium Phenolate 180ML 5 SPRAY MUCOUS MEM ×4 (00:29→11:19)
[2023-06-19] MEDS: Morphine 2 MG/ML Syringe IV (03:37)
[2023-06-19] MEDS: 0.9% Normal Saline 1,000 ML 100 ML IV ×2 (05:50→16:15)
--- NOTE | 2023-06-19 05:55 | RAD_ITS ---
EXAM: XR ABDOMEN, 1 VIEW CLINICAL INDICATION: SBO TECHNIQUE: Frontal supine view of the abdomen/pelvis. COMPARISON: Previous abdominal radiograph of 06/18/2023 FINDINGS: LOWER THORAX: No acute pathology. GASTROINTESTINAL TRACT: Gas is scattered within a few nondistended small bowel loops. Gas and fecal material are scattered within the colon. No abnormally distended bowel loops are identified. ORGANS: Excreted contrast fills the urinary bladder. Cholecystectomy clips are again noted and surgical clips are present within the pelvis from previous tubal ligation. No organomegaly. No abnormal calcifications. BONES/JOINTS: No acute pathology. SOFT TISSUES: No acute pathology. VASCULATURE: Atherosclerotic vascular calcification is present. TUBES, LINES AND DEVICES: NG tube remains in place extending through the stomach, with the tip of the tube projected within the right upper quadrant at the level of the second portion of the duodenal C-loop. RAD/Abdomen Single View (Portable) IMPRESSION: 1. Normal bowel gas pattern 2. Tip of the NG tube projected in the region of the duodenal C-loop. Electronically Signed: Devyn Ng MD at 5:21 EDT ,
[2023-06-19 06:15] LABS: Absolute Lymphocyte Count 1.61 X10^3/uL (0.83-4.51); Absolute Neutrophil Count 5.4 X10^3/uL (2.0-7.7); Basophil# 0.06 X10^3/uL; Basophil% 0.7 % (0-1); Eosinophil# 0.11 X10^3/uL; Eosinophils% 1.3 % (0-5); Hemoglobin 14.4 g/dL (12.0-15.0); Lymphocyte # 1.61 X10^3/ul (0.83-4.51); Lymphocyte % 19.5 % (19-41); Mean Corp Hgb Conc 31.3 g/dL (32-36); Mean Corpuscular Hgb 31.5 pg (27.0-32.0); Mean Corpuscular Volume 100.7 fL (81-99); Monocyte# 1.03 X10^3/uL; Monocyte% 12.5 % (0-10); NRBC Flagged by Analyzer 0 % (0-5); Neutrophil % 65.6 % (47-70); POSITIVE MORPHOLOGY YES; Platelet Count 293 K/mm3 (150-450); RBC Distribution Width CV 17.5 % (11.6-14.6); RBC Distribution Width SD 65.1 fl (35.1-43.9); Red Blood Count 4.57 M/mm3 (4.2-5.4); White Blood Count 8.2 K/mm3 (4.4-11.0)
[2023-06-19 07:02] LABS: ALB/GLOB Ratio 0.9 RATIO (0.9-2.4); AST(SGOT) 23 U/L (15-37); Alanine Aminotransfer ALT/SGPT 20 U/L (13-56); Albumin, Serum 3.1 g/dL (3.2-5.0); Alkaline Phosphatase 98 U/L (45-117); Anion Gap 11 (5-15); BUN 21 mg/dL (7-18); BUN/Creat Ratio 34.3 RATIO (10-20); Calcium,Total 8.3 mg/dL (8.5-10.1); Chloride 110 mmol/L (98-107); Creatinine, Serum 0.61 mg/dL (0.55-1.02); EST Glomerular Filtration Rate 104 mL/min (>60); Est Glom Filt Rate - Afr Amer 125 mL/min (>60); Estimated Creatinine Clearance 39.21 ml/min; Globulin 3.4 g/dL (2.2-4.2); Glucose 56 mg/dL (74-106); Potassium 3.7 mmol/L (3.5-5.1); Protein, Total 6.5 g/dL (6.4-8.2); Sodium Level 141 mmol/L (136-145)
[2023-06-19] MEDS: Budesonide Respules 0.5 MG/2 ML AMPUL.NEB. INHALATION ×2 (07:03→20:10)
[2023-06-19 07:14] LABS: Differential Indicated SCAN CRITERIA MET
--- NOTE | 2023-06-19 07:25 | PCM.PN.HOSP ---
Reason for Visit Reason for Visit: Diagnoses Unspecified intestinal obstruction, unspecified as to partial versus complete obstruction (06/18/23) Subjective Subjective 68-year-old nausea vomiting and diarrhea 3 days prior to her admission. Imaging studies obtained on admission demonstrated features consistent with small bowel obstruction Objective Data Objective Data Vital Signs: Vital Signs Temp Pulse Resp BP Pulse Ox O2 Del Method O2 Flow Rate 97.8 F 68 18 141/68 H 90 Nasal Cannula 2 06/19/23 05:52 06/19/23 07:05 06/19/23 07:05 06/19/23 05:52 06/19/23 07:05 06/19/23 07:05 06/19/23 07:05 Oxygen Flow Rate (L/min) 2 Oxygen Delivery Method Nasal Cannula Weight: 49.3 kg Body Mass Index (BMI) 21.3 Intake & Output: Intake and Output for Last 24 Hours 06/17/23 06/18/23 06/19/23 23:59 23:59 23:59 Intake Total 860 / 860 1126.67 / 1126.67 Output Total 480 / 480 450 / 450 Balance 380 / 380 676.67 / 676.67 Lab / Micro Data 06/19/23 05:40 06/19/23 05:40 Labs: Laboratory Results - last 24 hr 06/18/23 16:53: WBC 9.2, RBC 5.07, Hgb 16.0 H, Hct 49.8 H, MCV 98.2, MCH 31.6, MCHC 32.1, RDW Std Deviation 63.1 H, RDW Coeff of [place]ouard 17.8 H, Plt Count 342, MPV 9.9, Immature Gran % (Auto) 0.400, Neut % (Auto) 67.5, Lymph % (Auto) 20.4, [place] % (Auto) 10.4 H, Eos % (Auto) 0.5, Baso % (Auto) 0.8, Absolute Neuts (auto) 6.2, Absolute Lymphs (auto) 1.87, Nucleated RBC % 0, Sodium 136, Potassium 4.2, Chloride 103, Carbon Dioxide 21.0, Anion Gap 12, BUN 28 H, Creatinine 0.82, Estim Creat Clear Calc 47.82, Est GFR (MDRD) Af Amer 90, Est GFR (MDRD) Non-Af 74, BUN/Creatinine Ratio 34.2 H, Glucose 79, Calcium 9.3, Total Bilirubin 0.60, AST 23, ALT 23, Alkaline Phosphatase 113, Total Protein 8.0, Albumin 3.8, Globulin 4.2, Albumin/Globulin Ratio 0.9 06/19/23 05:40: WBC 8.2, RBC 4.57, Hgb 14.4, Hct 46.0, MCV 100.7 H, MCH 31.5, MCHC 31.3 L, RDW Std Deviation 65.1 H, RDW Coeff of [place]ouard 17.5 H, Plt Count 293, MPV 10.0, Immature Gran % (Auto) 0.400, Neut % (Auto) 65.6, Lymph % (Auto) 19.5, [place] % (Auto) 12.5 H, Eos % (Auto) 1.3, Baso % (Auto) 0.7, Absolute Neuts (auto) 5.4, Absolute Lymphs (auto) 1.61, Nucleated RBC % 0, Sodium 141, Potassium 3.7, Chloride 110 H, Carbon Dioxide 20.0 L, Anion Gap 11, BUN 21 H, Creatinine 0.61, Estim Creat Clear Calc 39.21, Est GFR (MDRD) Af Amer 125, Est GFR (MDRD) Non-Af 104, BUN/Creatinine Ratio 34.3 H, Glucose 56 L, Calcium 8.3 L, Total Bilirubin 0.40, AST 23, ALT 20, Alkaline Phosphatase 98, Total Protein 6.5, Albumin 3.1 L, Globulin 3.4, Albumin/Globulin Ratio 0.9 Radiography Diagnostic Testing: Radiology Impression Abdomen/Pelvis CT 06/18/23 17:42 IMPRESSION: Small bowel obstruction. Electronically Signed: Eduardo Lundberg MD at 19:07 EDT , ADDENDUM: 06/18/231917 IMPRESSION: Small bowel obstruction. N.B. : Ed Walsh MD, confirmed on 06/18/2023 19:11:42 (ET) that the healthcare facility has received the radiology report. Electronically Signed: Eduardo Lundberg MD at 19:07 EDT , Chest X-Ray 06/18/23 18:04 IMPRESSION: COPD with interstitial fibrosis or edema. Electronically Signed: Eduardo Lundberg MD at 19:12 EDT , KUB X-Ray 06/18/23 19:50 IMPRESSION: Feeding tube extends to the distal stomach or duodenum. Electronically Signed: Eduardo Lundberg MD at 20:57 EDT , KUB X-Ray 06/19/23 05:55 IMPRESSION: 1. Normal bowel gas pattern 2. Tip of the NG tube projected in the region of the duodenal C-loop. Electronically Signed: Devyn Ng MD at 5:21 EDT , Physical Exam Narrative GENERAL: cooperative HEENT: Atraumatic; normocephalic, NG tube in place EYES; Anicteric, Normal Conjunctiva NECK; supple, normal thyroid, RESPIRATORY: Diminished to auscultation CARDIOVASCULAR: Regular S1 S2, GI: soft, normoactive bowel sounds, : No Renal angle tenderness; EXTREMITIES: No edema, no clubbing, MUSCULOSKELETAL: no muscle wasting NEURO: Awake; no lateralizing signs. SKIN: No Rash PSYCH; Flat affect Assessment & Plan Assessment/Plan (1) Small bowel obstruction: PLAN: Plan 68-year-old nausea vomiting and diarrhea 3 days prior to her admission. Imaging studies obtained on admission demonstrated features consistent with small bowel obstruction 1. Small bowel obstruction ? Patient has previous history of small bowel obstruction for which she underwent exploratory laparoscopy with lysis of adhesion and release of small bowel obstruction in 2008. Patient has been admitted to regular nursing floor managed conservatively with bowel rest pain meds antinausea medication and IV fluid with consultation placed to general surgery 4. Chronic hypoxic respiratory failure ? Secondary to COPD patient is on 2 L oxygen continue with also continued her bronchodilator treatment 3. Essential hypertension ? Oral agent held management hydralazine as needed for systolic blood pressure greater than 160 4. Hypothyroidism - Patient is on levothyroxine home dose continued 5. Dyslipidemia ? On statin therapy held 6. Tobacco dependence - Counseled on cessation, offered nicotine patch for tobacco cravings 7. Chronic congestive heart failure ? With preserved ejection fraction; Diuretics on hold 8. Rheumatoid arthritis ? Patient was found hydroxychloroquine as well as methotrexate 9. GERD ? Patient is on PPI 10. DVT prophylaxis ? SC heparin Time spent in the patient's overall evaluation,decision-making process, review of diagnostic data, adjustment of management, discussion with other providers, nursing nursing and ancillary staff involved in patient's care documentation, 50 Minutes Charges/Coding Visit Charges Inpatient E&M: 95272 Rust Hosp L3
--- NOTE | 2023-06-19 07:57 | PN.SURG_ITS ---
Subjective Subjective Patient seen and examined during AM rounds. She is found sitting upright and her daughter is at bedside. She reports significant improvements in her abdominal discomfort and states that she is hungry. Objective Data Objective Data Vital Signs: Vital Signs Temp Pulse Resp BP Pulse Ox O2 Del Method O2 Flow Rate 97.8 F 68 18 141/68 H 90 Nasal Cannula 2 06/19/23 05:52 06/19/23 07:05 06/19/23 07:05 06/19/23 05:52 06/19/23 07:05 06/19/23 07:05 06/19/23 07:05 Oxygen Flow Rate (L/min) 2 Oxygen Delivery Method Nasal Cannula Weight: 108 lb 11.006 oz Body Mass Index (BMI) 21.3 Intake & Output: Intake and Output for Last 24 Hours 06/17/23 06/18/23 06/19/23 23:59 23:59 23:59 Intake Total 860 / 860 1126.67 / 1126.67 Output Total 480 / 480 450 / 450 Balance 380 / 380 676.67 / 676.67 Lab / Micro Data 06/19/23 05:40 06/19/23 05:40 Labs: Laboratory Results - last 24 hr 06/18/23 16:53: WBC 9.2, RBC 5.07, Hgb 16.0 H, Hct 49.8 H, MCV 98.2, MCH 31.6, MCHC 32.1, RDW Std Deviation 63.1 H, RDW Coeff of Edouard 17.8 H, Plt Count 342, MPV 9.9, Immature Gran % (Auto) 0.400, Neut % (Auto) 67.5, Lymph % (Auto) 20.4, [place] % (Auto) 10.4 H, Eos % (Auto) 0.5, Baso % (Auto) 0.8, Absolute Neuts (auto) 6.2, Absolute Lymphs (auto) 1.87, Nucleated RBC % 0, Sodium 136, Potassium 4.2, Chloride 103, Carbon Dioxide 21.0, Anion Gap 12, BUN 28 H, Creatinine 0.82, Estim Creat Clear Calc 47.82, Est GFR (MDRD) Af Amer 90, Est GFR (MDRD) Non-Af 74, BUN/Creatinine Ratio 34.2 H, Glucose 79, Calcium 9.3, Total Bilirubin 0.60, AST 23, ALT 23, Alkaline Phosphatase 113, Total Protein 8.0, Albumin 3.8, Globulin 4.2, Albumin/Globulin Ratio 0.9 06/19/23 05:40: WBC 8.2, RBC 4.57, Hgb 14.4, Hct 46.0, MCV 100.7 H, MCH 31.5, MCHC 31.3 L, RDW Std Deviation 65.1 H, RDW Coeff of Edouard 17.5 H, Plt Count 293, MPV 10.0, Immature Gran % (Auto) 0.400, Neut % (Auto) 65.6, Lymph % (Auto) 19.5, [place] % (Auto) 12.5 H, Eos % (Auto) 1.3, Baso % (Auto) 0.7, Absolute Neuts (auto) 5.4, Absolute Lymphs (auto) 1.61, Nucleated RBC % 0, Sodium 141, Potassium 3.7, Chloride 110 H, Carbon Dioxide 20.0 L, Anion Gap 11, BUN 21 H, Creatinine 0.61, Estim Creat Clear Calc 39.21, Est GFR (MDRD) Af Amer 125, Est GFR (MDRD) Non-Af 104, BUN/Creatinine Ratio 34.3 H, Glucose 56 L, Calcium 8.3 L, Total Bilirubin 0.40, AST 23, ALT 20, Alkaline Phosphatase 98, Total Protein 6.5, Albumin 3.1 L, Globulin 3.4, Albumin/Globulin Ratio 0.9 Radiography Diagnostic Testing: Radiology Impression Abdomen/Pelvis CT 06/18/23 17:42 IMPRESSION: Small bowel obstruction. Electronically Signed: Eduardo Lundberg MD at 19:07 EDT , ADDENDUM: 06/18/231917 IMPRESSION: Small bowel obstruction. N.B. : Ed Walsh MD, confirmed on 06/18/2023 19:11:42 (ET) that the healthcare facility has received the radiology report. Electronically Signed: Eduardo Lundberg MD at 19:07 EDT , Chest X-Ray 06/18/23 18:04 IMPRESSION: COPD with interstitial fibrosis or edema. Electronically Signed: Eduardo Lundberg MD at 19:12 EDT , KUB X-Ray 06/18/23 19:50 IMPRESSION: Feeding tube extends to the distal stomach or duodenum. Electronically Signed: Eduardo Lundberg MD at 20:57 EDT , KUB X-Ray 06/19/23 05:55 IMPRESSION: 1. Normal bowel gas pattern 2. Tip of the NG tube projected in the region of the duodenal C-loop. Electronically Signed: Devyn Ng MD at 5:21 EDT , Physical Exam Const oriented x3 and no apparent distress Resp normal respiratory effort GI GI Narrative: Nondistended, soft, nontender to palpation x4 quadrants Assessment & Plan Assessment/Plan (1) Small bowel obstruction: PLAN: This is a 68-year-old female who is hospital day 2 for admission for small bowel obstruction. She appears to be improving with return of an appetite and now minimal NG tube output. Further, her abdominal exam is much improved over her intake exam yesterday. Still, I would like to perform a small bowel follow- through today as it did appear she had significant narrowing of her distal small bowel on CT imaging. This was concerning for adhesive disease. Patient does have significant comorbidities with history of CHF and COPD so she is not a ideal operative candidate. Risk stratification ongoing with hospitalist service. ?Continue n.p.o. status ? Small bowel series via NG tube (patient should be put out of bed in a chair to mitigate her aspiration risk during this imaging) Charges/Coding Visit Charges Inpatient E&M: 32005 Init Hosp L2
[2023-06-19 08:40] LABS: Anisocytosis 2+; Differential Comment SCANNED; Macrocytosis 1+; Microcytosis 1+
--- NOTE | 2023-06-19 09:05 | RAD_ITS ---
CLINICAL HISTORY: Female, 68 years old. Small bowel obstruction. PROCEDURE: Gastrografin small bowel follow-through examination. TECHNIQUE: (All elements of maximal sterile barrier technique followed, including US elements as applicable) A 100 mL mixture of low water and Gastrografin was injected through the indwelling nasogastric tube. Immediate and 6 hour post contrast introduction was obtained. FINDINGS: On the immediate image, contrast is seen in the proximal small bowel. At 6 hours, the contrast is seen throughout the entire colon. RAD/Small Bowel Series Only IMPRESSION: No evidence of bowel obstruction at this time. Electronically Signed: Bar Martin MD at 8:27 EDT ,
--- NOTE | 2023-06-19 09:08 | EKG12_ITS ---
Test Reason : IRREGULAR Blood Pressure : / mmHG Vent. Rate : 086 BPM Atrial Rate : 086 BPM P-R Int : 138 ms QRS Dur : 082 ms QT Int : 370 ms P-R-T Axes : 016 -08 079 degrees QTc Int : 442 ms Sinus rhythm with Premature atrial complexes in a pattern of bigeminy Nonspecific T wave abnormality Abnormal ECG When compared with ECG of 18-JUN-2023 17:41, No significant change was found Confirmed by ANAID CARMICHAEL, CLARISSE ([id number]), rewrite editor CATINA GALDAMEZ ([id number]) on 06/19/2023 12:48:08 PM Referred By: BEAR Confirmed By:CLARISSE WORRELL MD
--- NOTE | 2023-06-19 11:23 | CASEMGMT ---
Addendum entered by Janine Goins 06/19/23 11:52: Graciela states a portable tank can be brought to the hospital upon dc. Addendum entered by Janine Goins 06/19/23 11:50: Pt receives oxygen from [facility], verified rx for 2L cont. Pt does not have portable tanks. Rx on chart for portable tanks upon dc and in case pt needs greater rx. [facility] phone [phone]. Original Note: BRISSA DELA CRUZ Assessment: Face to Face with pt for initial transition planning/care coordination assessment. BRISSA DELA CRUZ introduced self and role at [facility], pt voices understanding and consents to assessment. Pt is A/O x4 and answers all questions appropriately at this time. Pt sitting up in bed with NG in and oxygen on in no distress. Care providers, pharmacy, and demographics verified/updated. Admitting Dx:SBO PCP:EVELIA Santo Specialists:[facility] in [place], pt does not know name Preferred [facility]acy: [facility] Insurance: [facility] Dual, [facility] Prescription Benefit: yes LNOK: Haylie Feliz, dtr Living Arrangements: Pt lives alone in a single story home with a ramp to enter. Pt reports she is I in ADL's and denies concerns at home. Transportation: Pt does not drive. Pt dtr transports her to medical appts. DME/HHC/SNF: Pt reports she has oxygen at home but does not know the name of the company she gets it from. Pt does not have portable tanks. She states she uses it only at night at 2L. Pt also has a pox, nebulizer and BP cuff. Pt denies hx of HHC or SNF stays. Pt states no concerns with going home at time of dc. Pt states no further concerns/needs. CM to follow. Advised pt to ask CM if any further question/concerns/needs arise, voices understanding. Pt Goal: Home Plan: Home
--- NOTE | 2023-06-19 16:09 | NURSING ---
Catrina from radiology called this RN and states that her small bowel series is completed and that she spoke with Dr. Dunn as well.
[2023-06-19] MEDS: BENZOCAINE/MENTHOL 1 LOZENGE MUCOUS MEM ×2 (16:15→22:14)
--- NOTE | 2023-06-19 16:27 | NURSING ---
Dr. Dunn removed ngt at this time.
[2023-06-19] MEDS: hydrALAZINE 20 MG/ML Vial 10 MG IV (22:14)
[2023-06-19] MEDS: Gabapentin 800 MG Tablet PO (23:43)
[2023-06-19] MEDS: Losartan Potassium 50 MG Tablet PO (23:43)
[2023-06-19] MEDS: Folic Acid 1 MG Tablet PO (23:43)
[2023-06-19] MEDS: Mirtazapine 15 MG Tablet PO (23:43)
[2023-06-19] MEDS: Acetaminophen 325 MG Tablet 650 MG PO (23:44)
[2023-06-19] MEDS: Sertraline 50 MG Tablet PO (23:44)
[2023-06-20] VITALS (8 sets, daily range): BP systolic 130–158; BP diastolic 62–78; PULSE 65–74; RESP 20–22; TEMP 36.6–36.7; O2SAT 80–97; BMI 21.2
[2023-06-20] MEDS: 0.9% Saline Lock 10 ML Syringe IV (03:09)
[2023-06-20] MEDS: Furosemide 40 MG Tablet PO (05:39)
[2023-06-20] MEDS: Levothyroxine 50 MCG Tablet PO (05:39)
--- NOTE | 2023-06-20 07:06 | PN.HOSP_ITS ---
Reason for Visit Reason for Visit: Diagnoses Unspecified intestinal obstruction, unspecified as to partial versus complete o bstruction (06/18/23) Subjective Subjective Patient seen did admit to having several loose bowel movement. Patient be asse ssed for possible disc Objective Data Objective Data Vital Signs: Vital Signs Temp Pulse Resp BP Pulse Ox O2 Del Method O2 Flow Rate 98.1 F 67 22 H 158/62 H 94 Nasal Cannula 2 06/20/23 05:37 06/20/23 05:37 06/20/23 05:37 06/20/23 05:37 06/20/23 05:37 06/20/23 05:37 06/20/23 05:37 Oxygen Flow Rate (L/min) 2 Oxygen Delivery Method Nasal Cannula Weight: 49.073 kg Body Mass Index (BMI) 21.2 Intake & Output: Intake and Output for Last 24 Hours 06/18/23 06/19/23 06/20/23 23:59 23:59 23:59 Intake Total 860 / 860 2821.67 / 2821.67 1000 / 1000 Output Total 480 / 480 450 / 650 700 / 700 Balance 380 / 380 2371.67 / 2171.67 300 / 300 Lab / Micro Data 06/19/23 05:40 06/19/23 05:40 Labs: Laboratory Results - last 24 hr 06/19/23 05:40: WBC 8.2, RBC 4.57, Hgb 14.4, Hct 46.0, MCV 100.7 H, MCH 31.5, MCHC 31.3 L, RDW Std Deviation 65.1 H, RDW Coeff of Edouard 17.5 H, Plt Count 293, MPV 10.0, Immature Gran % (Auto) 0.400, Neut % (Auto) 65.6, Lymph % (Auto) 19.5, [place] % (Auto) 12.5 H, Eos % (Auto) 1.3, Baso % (Auto) 0.7, Absolute Neuts (auto) 5.4, Absolute Lymphs (auto) 1.61, Nucleated RBC % 0, Differential Comment SCANNED, Anisocytosis 2+, Microcytosis 1+, Macrocytosis 1+ Radiography Diagnostic Testing: Radiology Impression Echocardiogram 06/18/23 21:19 Interpretation Summary Normal left ventricle. Left ventricular systolic function is normal. The estimated ejection fraction is 60 %. Ordering Physician: Brittani Wright Referring Physician: KHOA ALCALA Performed By: Aubree Basilio RCS Physical Exam Narrative GENERAL: cooperative HEENT: Atraumatic; normocephalic, NG tube in place EYES; Anicteric, Normal Conjunctiva NECK; supple, normal thyroid, RESPIRATORY: Diminished to auscultation CARDIOVASCULAR: Regular S1 S2, GI: soft, normoactive bowel sounds, : No Renal angle tenderness; EXTREMITIES: No edema, no clubbing, MUSCULOSKELETAL: no muscle wasting NEURO: Awake; no lateralizing signs. SKIN: No Rash PSYCH; Flat affect Assessment & Plan Assessment/Plan (1) Small bowel obstruction: PLAN: Plan 68-year-old nausea vomiting and diarrhea 3 days prior to her admission. Imaging studies obtained on admission demonstrated features consistent with small bowel obstruction 1. Small bowel obstruction ? Patient has previous history of small bowel obstruction for which she underwent exploratory laparoscopy with lysis of adhesion and release of small bowel obstruction in 2008. Patient has been admitted to regular nursing floor managed conservatively with bowel rest pain meds antinausea medication and IV fluid with consultation placed to general surgery ? 06/20/2023 patient did respond to conservative management 4. Chronic hypoxic respiratory failure ? Secondary to COPD patient is on 2 L oxygen continue with also continued her bronchodilator treatment 3. Essential hypertension ? Oral agent held management hydralazine as needed for systolic blood pressure g reater than 160 4. Hypothyroidism - Patient is on levothyroxine home dose continued 5. Dyslipidemia ? On statin therapy held 6. Tobacco dependence - Counseled on cessation, offered nicotine patch for tobacco cravings 7. Chronic congestive heart failure ? With preserved ejection fraction; Diuretics on hold 8. Rheumatoid arthritis ? Patient was found hydroxychloroquine as well as methotrexate 9. GERD ? Patient is on PPI 10. DVT prophylaxis ? SC heparin Time spent in the patient's overall evaluation,decision-making process, review of diagnostic data, adjustment of management, discussion with other providers, nursing nursing and ancillary staff involved in patient's care documentation, 35 Minutes Charges/Coding Visit Charges Inpatient E&M: 82284 Subs Hosp L2
[2023-06-20] MEDS: Budesonide Respules 0.5 MG/2 ML AMPUL.NEB. INHALATION (07:33)
--- NOTE | 2023-06-20 08:06 | PCM.PN.SRG ---
Subjective Subjective Patient tolerated clears and having bowel function denies any abdominal pain. Objective Data Objective Data Vital Signs: Vital Signs Temp Pulse Resp BP Pulse Ox O2 Del Method O2 Flow Rate 98.1 F 70 22 H 158/62 H 91 Nasal Cannula 3 06/20/23 05:37 06/20/23 07:32 06/20/23 07:32 06/20/23 05:37 06/20/23 07:35 06/20/23 07:35 06/20/23 07:35 Oxygen Flow Rate (L/min) 3 Oxygen Delivery Method Nasal Cannula Weight: 108 lb 3 oz Body Mass Index (BMI) 21.2 Intake & Output: Intake and Output for Last 24 Hours 06/18/23 06/19/23 06/20/23 23:59 23:59 23:59 Intake Total 860 / 860 2821.67 / 2821.67 1000 / 1000 Output Total 480 / 480 450 / 650 700 / 700 Balance 380 / 380 2371.67 / 2171.67 300 / 300 Lab / Micro Data 06/19/23 05:40 06/19/23 05:40 Labs: Laboratory Results - last 24 hr 06/19/23 05:40: Differential Comment SCANNED, Anisocytosis 2+, Microcytosis 1+, Macrocytosis 1+ Radiography Diagnostic Testing: Radiology Impression Echocardiogram 06/18/23 21:19 Interpretation Summary Normal left ventricle. Left ventricular systolic function is normal. The estimated ejection fraction is 60 %. Ordering Physician: Brittani Wright Referring Physician: KHOA ALCALA Performed By: Aubree Basilio RCS Physical Exam Const oriented x3 and no apparent distress Resp normal respiratory effort Cardio regular rate GI soft to palpation and non-tender Inspection: Negative for abdominal distention Assessment & Plan Assessment/Plan (1) Partial small bowel obstruction: PLAN: Plan We will advance patient to soft diet. Patient able to tolerate okay to DC home. Sindy العلي M.D. Pager: [phone] [facility] [address] [place] [address], Outpatient [place], [address] [place] [address] Office: [phone] Charges/Coding Visit Charges Inpatient E&M: 38593 Subs Hosp L2
--- NOTE | 2023-06-20 08:10 | PCM.DC.SUM ---
Providers Date of Admission: 06/18/23 Date of Discharge: 06/20/23 Primary Care Physician: EVELIA Ling Consultations 06/18/23 21:19 Consult: General Surgery Routine Consulting Provider: Mark Dunn Reason for Consult: SBO EMERGENT Consult: No MD Notified: Yes Date Notified: 06/18/23 Time Notified: 19:42 Method of Notification: Verbal Reason For Visit: SBO Diagnosis Discharge Diagnosis (1) Small bowel obstruction: Status: Acute Code(s): K56.609 - Unspecified intestinal obstruction, unspecified as to partial versus complete obstruction (2) Partial small bowel obstruction: Status: Acute Code(s): K56.600 - Partial intestinal obstruction, unspecified as to cause Plan 68-year-old nausea vomiting and diarrhea 3 days prior to her admission. Imaging studies obtained on admission demonstrated features consistent with small bowel obstruction 1. Small bowel obstruction ? Patient has previous history of small bowel obstruction for which she underwent exploratory laparoscopy with lysis of adhesion and release of small bowel obstruction in 2008. Patient has been admitted to regular nursing floor managed conservatively with bowel rest pain meds antinausea medication and IV fluid with consultation placed to general surgery ? 06/20/2023 patient did respond to conservative management 4. Chronic hypoxic respiratory failure ? Secondary to COPD patient is on 2 L oxygen continue with also continued her bronchodilator treatment 3. Essential hypertension ? Oral agent held management hydralazine as needed for systolic blood pressure greater than 160 4. Hypothyroidism - Patient is on levothyroxine home dose continued 5. Dyslipidemia ? On statin therapy held 6. Tobacco dependence - Counseled on cessation, offered nicotine patch for tobacco cravings 7. Chronic congestive heart failure ? With preserved ejection fraction; Diuretics on hold 8. Rheumatoid arthritis ? Patient was found hydroxychloroquine as well as methotrexate 9. GERD ? Patient is on PPI 10. DVT prophylaxis ? SC heparin Time spent in the patient's overall evaluation,decision-making process, review of diagnostic data, adjustment of management, discussion with other providers, nursing nursing and ancillary staff involved in patient's care documentation, 35 Minutes Medications at Discharge Home Medications albuterol sulfate 2.5 mg/3 mL (0.083 %) solution for nebulization 2.5 mg inhalation Q4H PRN PRN Sob &/Or Wheezing 04/28/19 albuterol sulfate 90 mcg/actuation aerosol inhaler 2 puff inhalation Q4H PRN PRN Sob &/Or Wheezing 04/28/19 furosemide 40 mg tablet 40 mg PO DAILY water pill 04/28/19 levothyroxine 50 mcg tablet 50 mcg PO DAILY thyroid 04/28/19 loratadine 10 mg tablet 10 mg PO DAILY allergies 04/28/19 mirtazapine 15 mg tablet 15 mg PO QHS sleep 04/28/19 montelukast 10 mg tablet 10 mg PO DAILY allergies 04/28/19 nitroglycerin 0.4 mg sublingual tablet 0.4 mg SL DAILY PRN PRN chest pain 04/28/19 omeprazole 20 mg capsule,delayed release 40 mg PO BID gerd 04/28/19 spironolactone 25 mg tablet 25 mg PO DAILY breathing 04/28/19 buspirone 15 mg tablet 15 mg PO TID PRN anxiety/depression 06/18/23 fluticasone fur. 100 mcg-umeclid 62.5 mcg-vilant 25 mcg inhalat.powder (Trelegy Ellipta) 1 inh inhalation Q24H 06/18/23 folic acid 1 mg tablet 1 mg PO DAILY supplement 06/18/23 gabapentin 800 mg tablet 800 mg PO QHS pain, restless leg syndrome 06/18/23 hydroxychloroquine 200 mg tablet 200 mg PO DAILY rheumatoid arthritis 06/18/23 losartan 50 mg tablet 50 mg PO DAILY blood pressure 06/18/23 methotrexate sodium 2.5 mg tablet 15 mg PO SA 06/18/23 sertraline 50 mg tablet 50 mg PO DAILY anxiety/depression 06/19/23 Hospital Course Summary of Care Provided Minutes Spent on Discharge: 35 Physical Exam Narrative GENERAL: cooperative HEENT: Atraumatic; normocephalic, EYES; Anicteric, Normal Conjunctiva NECK; supple, normal thyroid, RESPIRATORY: Diminished to auscultation CARDIOVASCULAR: Regular S1 S2, GI: soft, normoactive bowel sounds, : No Renal angle tenderness; EXTREMITIES: No edema, no clubbing, MUSCULOSKELETAL: no muscle wasting NEURO: Awake; no lateralizing signs. SKIN: No Rash PSYCH; Flat affect Weight / BMI Weight Weight: 49.073 kg Body Mass Index (BMI) 21.2 ABG / Lab / Microbiology Data 06/19/23 05:40 06/19/23 05:40 Laboratory: Laboratory Results - last 24 hr 06/19/23 05:40: Differential Comment SCANNED, Anisocytosis 2+, Microcytosis 1+, Macrocytosis 1+ Radiography Diagnostic Testing: Radiology Impression Echocardiogram 06/18/23 21:19 Interpretation Summary Normal left ventricle. Left ventricular systolic function is normal. The estimated ejection fraction is 60 %. Ordering Physician: Brittani Wright Referring Physician: KHOA MATHEWS Performed By: Aubree Basilio RCS D/C Instructions Discharge Diet: No restrictions Discharge Activity: Return to Normal Activity Call your doctor if you observe: Fever of 101 or Higher, Shortness of breath, Fainting spells and Chest pain Meaningful Use Info Meaningful Use Diagnoses (Choose all that apply): None applicable Discharge Plan Admission Admit Date/Time: 06/18/23 19:42 Attending Provider: Martin Wilson Primary Care Provider: Salvatore Mathews Consulting Providers: Mark Dunn; Brittani Wright Discharge Orders/Prescriptions Prescriptions: Continued omeprazole 20 MG capsule 40 mg PO BID furosemide 40 MG tablet 40 mg PO DAILY albuterol sulfate 2.5 MG/3 ML solution for nebulization 2.5 mg inhalation Q4H PRN PRN (Reason: Sob &/Or Wheezing) levothyroxine 50 MCG tablet 50 mcg PO DAILY nitroglycerin 0.4 MG tablet, sublingual 0.4 mg SL DAILY PRN PRN (Reason: chest pain) montelukast 10 MG tablet 10 mg PO DAILY mirtazapine 15 MG tablet 15 mg PO QHS albuterol sulfate 1 INHALER inhaler 2 puff inhalation Q4H PRN PRN (Reason: Sob &/Or Wheezing) loratadine 10 MG tablet 10 mg PO DAILY spironolactone 25 MG tablet 25 mg PO DAILY Patient Comments: Patient doesn't think she takes this med any longer. buspirone 15 mg tablet 15 mg PO TID PRN folic acid 1 mg tablet 1 mg PO DAILY Patient Comments: TAKE 1 TABLET BY MOUTH ONCE DAILY gabapentin 800 mg tablet 800 mg PO QHS Patient Comments: TAKE 1 TABLET BY MOUTH ONCE DAILY hydroxychloroquine 200 mg tablet 200 mg PO DAILY Patient Comments: TAKE 1 TABLET BY MOUTH ONCE DAILY losartan 50 mg tablet 50 mg PO DAILY methotrexate sodium 2.5 mg tablet 15 mg PO SA Patient Comments: TAKE 6 TABLETS BY MOUTH ONCE A WEEK DIRECTED Trelegy Ellipta 100-62.5-25 mcg blister with device 1 inh INHALATION Q24H sertraline 50 mg tablet 50 mg PO DAILY Patient Comments: TAKE 1/2 (ONE-HALF) TABLET BY MOUTH ONCE DAILY FOR 6 DAYS THEN 1 TAB ONCE DAILY Referrals / Follow Up: Salvatore Mathews, PA [Primary Care Provider] - Within 1 Week Disposition Disposition (needs filled in before D/C Order can be placed): Home, Self Care Charges/Coding Visit Charges Inpatient E&M: 22936 Disch Hosp >30min
[2023-06-20] MEDS: Sertraline 50 MG Tablet PO (09:21)
[2023-06-20] MEDS: Montelukast 10 MG Tablet PO (09:21)
[2023-06-20] MEDS: Loratadine 10 MG Tablet PO (09:22)
[2023-06-20] MEDS: Hydroxychloroquine 200 MG Tablet PO (09:22)
[2023-06-20] MEDS: Losartan Potassium 50 MG Tablet PO (09:22)
[2023-06-20] MEDS: Folic Acid 1 MG Tablet PO (09:22)
[2023-06-20] MEDS: Acetaminophen 325 MG Tablet 650 MG PO (12:43)
== END 2023-06-20 14:43 | disposition home or self-care (01) | DRG 389 ==
LOC: ED 19:45 → MS3 20:49
PROVIDERS: Admitting Provider Family Medicine; Emergency Provider Emergency Medicine; PCP Physician Assistant; Visit Provider Internal Medicine
DX: K56.600 Partial intestinal obstruction, unspecified as to cause (principal); J96.11 Chronic respiratory failure with hypoxia; I50.32 Chronic diastolic (congestive) heart failure; I11.0 Hypertensive heart disease with heart failure; J44.9 Chronic obstructive pulmonary disease, unspecified; M06.9 Rheumatoid arthritis, unspecified; K21.9 Gastro-esophageal reflux disease without esophagitis; E03.9 Hypothyroidism, unspecified; E78.5 Hyperlipidemia, unspecified; J30.9 Allergic rhinitis, unspecified; F17.210 Nicotine dependence, cigarettes, uncomplicated; Z99.81 Dependence on supplemental oxygen; Z79.51 Long term (current) use of inhaled steroids; Z79.890 Hormone replacement therapy; Z79.899 Other long term (current) drug therapy
CPT/HCPCS: 36415; 71046; 74018; 74177; 74250; 80053; 85025; 93005; 93306; 94640; 94668; 99285; 99406; J7030; J7040; Q9967; A4216; J2405

== ENCOUNTER 2024-05-22 12:58 | Inpatient (IN) | payer MEDICARE, SELFPAY ==
[2024-05-22] VITALS (17 sets, daily range): BP systolic 158–222; BP diastolic 66–88; PULSE 66–105; RESP 15–27; TEMP 36.1–37.1; O2SAT 81–99; BMI 20.7
--- NOTE | 2024-05-22 13:05 | EKG12_ITS ---
Test Reason : CP Blood Pressure : / mmHG Vent. Rate : 076 BPM Atrial Rate : 076 BPM P-R Int : 140 ms QRS Dur : 088 ms QT Int : 402 ms P-R-T Axes : 060 -20 068 degrees QTc Int : 452 ms Normal sinus rhythm Possible Left atrial enlargement Nonspecific T wave abnormality Abnormal ECG Confirmed by ANAID CARMICHAEL, CLARISSE ([id number]), desk editor RAÚL NAIK ([id number]) on 05/23/2024 8:08:03 AM Referred By: Confirmed By:CLARISSE WORRELL MD
--- NOTE | 2024-05-22 13:05 | RAD_ITS ---
INDICATION: chest pain EXAMINATION/TECHNIQUE: X-RAY - XR Chest 1 View COMPARISON: June 18, 2023 FINDINGS: LINES/DEVICES: None. LUNGS: There are stable coarse appearing interstitial markings within the mid and lower lungs. The lungs are hyperinflated. There are radiolucencies within the upper and midlung suggestive of edema. No pneumothorax. MEDIASTINUM AND CARDIOVASCULAR STRUCTURES: Cardiac silhouette not enlarged. Central airways and mediastinal contour are unremarkable. BONES AND SOFT TISSUES: Unremarkable. RAD/Chest 1 View (Portable) IMPRESSION: Emphysema. Chronic interstitial markings. Electronically Signed: Asya Gomez MD at 13:50 EDT ,
--- NOTE | 2024-05-22 13:22 | ED.VIS.DYS ---
HPI History of Present Illness Chief Complaint: Shortness of Breath Narrative Narrative: 69-year-old female presenting with chest pain, shortness of breath since Thursday. Patient states her blood been running high at home. Patient states she has not had a fever or chills. She denies any new cough. She typically wears oxygen at night but has been more short of breath. On arrival to the ED it was noted that her oxygen was in the 80s. She is on 3 L nasal cannula. At night she wears 2 L generally. She states she used to wear oxygen during the day but her oxygen send doing well so they stopped it. Patient has history of CHF and COPD. She still smokes a pack and half cigarettes per day. She describes her chest pain as mild and fleeting. It is sharp in nature. It only last for a second. Nothing makes it worse or better. PFSH PFS Medical History Rheumatoid arthritis TIA (transient ischemic attack) Tobacco use COPD (chronic obstructive pulmonary disease) CHF (congestive heart failure) HLD (hyperlipidemia) HTN (hypertension) Small bowel obstruction Home Medications ?Medication ?Instructions ?Recorded ?Last Taken ?Type albuterol sulfate 2.5 mg/3 mL 2.5 mg inhalation Q4H PRN PRN Sob 04/28/19 05/22/24 History (0.083 %) solution for nebulization &/Or Wheezing albuterol sulfate 90 mcg/actuation 2 puff inhalation Q4H PRN PRN Sob 04/28/19 05/22/24 History aerosol inhaler &/Or Wheezing furosemide 40 mg tablet 40 mg PO DAILY water pill 04/28/19 06/15/23 History levothyroxine 50 mcg tablet 50 mcg PO DAILY thyroid 04/28/19 05/22/24 History montelukast 10 mg tablet 10 mg PO DAILY allergies 04/28/19 05/21/24 History nitroglycerin 0.4 mg sublingual 0.4 mg SL DAILY PRN PRN chest pain 04/28/19 Unknown History tablet buspirone 15 mg tablet 15 mg PO TID PRN anxiety/depression 06/18/23 05/22/24 History fluticasone fur. 100 mcg-umeclid 1 inh inhalation Q24H 06/18/23 05/22/24 History 62.5 mcg-vilant 25 mcg inhalat.powder (Trelegy Ellipta) folic acid 1 mg tablet 1 mg PO DAILY supplement 06/18/23 05/22/24 History gabapentin 800 mg tablet 800 mg PO QHS pain, restless leg 06/18/23 05/21/24 History syndrome hydroxychloroquine 200 mg tablet 200 mg PO DAILY rheumatoid 06/18/23 05/22/24 History arthritis methotrexate sodium 2.5 mg tablet 15 mg PO SA 06/18/23 05/21/24 History amitriptyline 10 mg tablet 10 mg PO QHS 05/22/24 05/21/24 History losartan 100 mg tablet 100 mg PO DAILY 05/22/24 05/22/24 History omeprazole 40 mg capsule,delayed 40 mg PO BID 05/22/24 05/22/24 History release Allergy/AdvReac Type Severity Reaction Status Date / Time tiotropium Allergy Mild Swelling Verified 05/22/24 13:01 codeine Allergy Anaphylaxis Verified 05/22/24 13:01 Penicillins (PCN) Allergy Anaphylaxis Verified 05/22/24 13:01 hydrochlorothiazide (hctz) AdvReac Unknown NEEDS Verified 05/22/24 13:01 FOLLOW-UP Family History Mother Breast cancer Father Heart disease Myocardial infarction Hypertension CAD (coronary artery disease) Surgical History Hx of tubal ligation History of cholecystectomy History of colon surgery Social History household members: spouse Smoking Status: Current every day smoker tobacco type: cigarettes alcohol intake: current alcohol intake frequency: holidays/special occasions only substance use type: does not use ROS ROS ED Constitutional Constitutional ED: Denies chills, fever(s) or sweats Eyes Eyes: Denies blurry vision or change in vision ENT ENT ED: Denies ear pain or sore throat Cardiovascular Cardiovascular: Reports chest pain; Denies palpitations or racing heartbeat Respiratory/Chest Respiratory/Chest: Reports dyspnea and dyspnea on exertion; Denies cough or sputum Gastrointestinal Gastrointestinal: Denies abdominal pain, constipation, diarrhea, nausea or vomiting Genitourinary Genitourinary ED: Denies dysuria, hematuria or urinary frequency Musculoskeletal Musculoskeletal: Denies arthralgias, myalgias or neck pain Integumentary Denies abscess, Abrasions or rash Neurologic Neurologic: Denies headache(s), paresthesias or weakness Psychiatric Psychiatric: Denies anxiety, depression, suicidal ideation or suicidal thoughts Endocrine Endocrinology: Denies polydipsia or polyuria EXAM Physical Exam Const Vital Signs: 05/22/24 13:01 05/22/24 13:01 05/22/24 13:03 Temperature 96.9 F L 96.9 F L Temperature Source Temporal Temporal Pulse Rate 105 H 105 H 105 H Respiratory Rate 26 H 24 H 24 H Respiratory Effort Respiratory Pattern Blood Pressure 222/88 H 222/88 H 222/88 H Blood Pressure Mean 132 132 132 Pulse Ox 81 81 81 Oxygen Delivery Method Room Air Room Air Room Air Oxygen Flow Rate (L/min) 05/22/24 13:03 05/22/24 13:05 05/22/24 13:34 Temperature Temperature Source Pulse Rate Respiratory Rate Respiratory Effort Short of Breath Respiratory Pattern Blood Pressure Blood Pressure Mean Pulse Ox 94 Oxygen Delivery Method Nasal Cannula Nasal Cannula Nasal Cannula Oxygen Flow Rate (L/min) 3 2 2 05/22/24 14:03 05/22/24 14:23 05/22/24 15:00 Temperature 98.6 F Temperature Source Oral Pulse Rate 76 68 Respiratory Rate 20 H 26 H Respiratory Effort Respiratory Pattern Blood Pressure 177/72 H 191/85 H Blood Pressure Mean 107 120 Pulse Ox 97 97 94 Oxygen Delivery Method Nasal Cannula Nasal Cannula Nasal Cannula Oxygen Flow Rate (L/min) 2 2 2 05/22/24 15:58 05/22/24 15:58 05/22/24 15:59 Temperature 98.6 F Temperature Source Pulse Rate 67 67 Respiratory Rate 20 H 27 H Respiratory Effort Respiratory Pattern Normal Blood Pressure 185/75 H Blood Pressure Mean 111 Pulse Ox 95 94 Oxygen Delivery Method Nasal Cannula Oxygen Flow Rate (L/min) 2 05/22/24 16:00 Temperature 98.6 F Temperature Source Oral Pulse Rate 66 Respiratory Rate 27 H Respiratory Effort Respiratory Pattern Blood Pressure 185/75 H Blood Pressure Mean 111 Pulse Ox 94 Oxygen Delivery Method Nasal Cannula Oxygen Flow Rate (L/min) 2 Positive well nourished General Appearance ED: NAD HEENT Reports moist mucous membranes Eyes PERRL and EOMs intact bilaterally Neck no lymphadenopathy Resp normal respiratory effort and clear to auscultation bilaterally Auscultation: Negative for rales, rhonchi or wheezes Cardio regular rate and regular rhythm Extremity normal to inspection General Extremety ED: Negative for edema General Extremity: Negative for edema Neuro oriented x3 and CN's II-XII intact bilaterally Sensorium / Orientation: alert Motor Exam: strength 5/5 throughout Psych mental status grossly normal Skin no wounds MDM MDM MDM Narrative Medical decision making narrative: Patient presenting with chest pain and shortness of breath. Differential includes ACS, CHF, pneumonia,, PE COPD exacerbation, dehydration, electrolyte abnormalities, anemia. CBC will be obtained to assess white blood cell count, hemoglobin, platelets. BMP to assess renal function, electrolytes, glucose. High-sensitivity troponin and EKG to assess for ischemia/dysrhythmia. BNP to assess for CHF. Chest x-ray to rule out pneumonia or CHF. D-dimer to assess for PE. CBC shows mild cytosis 12.0. Hemoglobin 14.6. Platelets are normal at 146. Renal function and electrolytes within normal limits. High-sensitivity troponin is 6. BNP 220.6. D-dimer is negative at 0.48. Patient was ambulated on 2 L and still desaturated to 85%. Given this I feel the patient needs to stay in the hospital. I added COVID, flu, RSV swabs. I gave her an albuterol nebulized. She is not sure if he is allergic to ipratropium but she is allergic to tiotropium. Chest x-ray interpreted by myself shows no acute cardiopulmonary process. Radiologist interprets this and agrees. EKG sinus rhythm at 76 bpm without evidence of ischemia or ectopy. Added on a COVID, influenza, RSV. This is pending. Discussed with hospitalist for admission. Impression: 1. Dyspnea 2. Hypoxia 3. Chest pain Lab Data Attestation: I reviewed the patient's lab results. Labs: Laboratory Results - last 24 hr 05/22/24 13:25 WBC 12.0 H RBC 4.26 Hgb 14.6 Hct 44.7 MCV 104.9 H MCH 34.3 H MCHC 32.7 RDW Std Deviation 51.8 H RDW Coeff of Edouard 13.8 Plt Count 246 MPV 9.7 Immature Gran % (Auto) 0.500 Neut % (Auto) 81.1 H Lymph % (Auto) 9.5 L [place] % (Auto) 7.9 Eos % (Auto) 0.6 Baso % (Auto) 0.4 Absolute Neuts (auto) 9.8 H Absolute Lymphs (auto) 1.14 Nucleated RBC % 0 D-Dimer Quant (PE/DVT) 0.48 Sodium 139 Potassium 3.8 Chloride 108 H Carbon Dioxide 23.0 Anion Gap 8 BUN 12 Creatinine 0.74 Estim Creat Clear Calc 48.34 Est GFR (MDRD) Af Amer 100 Est GFR (MDRD) Non-Af 83 BUN/Creatinine Ratio 16.2 Glucose 79 Calcium 9.3 Troponin I High Sens 6 B-Natriuretic Peptide 220.6 H Radiography Diagnostic Testing: Clinical Impression(s) from Imaging Studies Chest X-Ray 05/22/24 13:05 IMPRESSION: Emphysema. Chronic interstitial markings. Electronically Signed: Asya Gomez MD at 13:50 EDT , Discharge Plan Triage Chief Complaint: Shortness of Breath Other Complaint: Chest Pain Hypertension ED Provider: Umesh Chavez Dx/Rx/DC Orders Prescriptions: No Action furosemide 40 MG tablet 40 mg PO DAILY albuterol sulfate 2.5 MG/3 ML solution for nebulization 2.5 mg inhalation Q4H PRN PRN (Reason: Sob &/Or Wheezing) levothyroxine 50 MCG tablet 50 mcg PO DAILY nitroglycerin 0.4 MG tablet, sublingual 0.4 mg SL DAILY PRN PRN (Reason: chest pain) montelukast 10 MG tablet 10 mg PO DAILY albuterol sulfate 1 INHALER inhaler 2 puff inhalation Q4H PRN PRN (Reason: Sob &/Or Wheezing) buspirone 15 mg tablet 15 mg PO TID PRN folic acid 1 mg tablet 1 mg PO DAILY Patient Comments: TAKE 1 TABLET BY MOUTH ONCE DAILY gabapentin 800 mg tablet 800 mg PO QHS Patient Comments: TAKE 1 TABLET BY MOUTH ONCE DAILY hydroxychloroquine 200 mg tablet 200 mg PO DAILY Patient Comments: TAKE 1 TABLET BY MOUTH ONCE DAILY methotrexate sodium 2.5 mg tablet 15 mg PO SA Patient Comments: TAKE 6 TABLETS BY MOUTH ONCE A WEEK DIRECTED Trelegy Ellipta 100-62.5-25 mcg blister with device 1 inh INHALATION Q24H omeprazole 40 mg capsule,delayed release(DR/EC) 40 mg PO BID losartan 100 mg tablet 100 mg PO DAILY amitriptyline 10 mg tablet 10 mg PO QHS Primary Care Provider: Salvatore Mathews Referrals: Salvatore Mathews PA [Primary Care Provider] - Print Language: Turkmen
[2024-05-22 13:33] LABS: Absolute Lymphocyte Count 1.14 X10^3/uL (0.83-4.51); Absolute Neutrophil Count 9.8 X10^3/uL (2.0-7.7); Basophil# 0.05 X10^3/uL; Basophil% 0.4 % (0-1); Eosinophil# 0.07 X10^3/uL; Eosinophils% 0.6 % (0-5); Hematocrit 44.7 % (37-47); Hemoglobin 14.6 g/dL (12.0-15.0); Lymphocyte # 1.14 X10^3/ul (0.83-4.51); Lymphocyte % 9.5 % (19-41); Mean Corp Hgb Conc 32.7 g/dL (32-36); Mean Corpuscular Hgb 34.3 pg (27.0-32.0); Mean Corpuscular Volume 104.9 fL (81-99); Mean Platelet Vol. 9.7 fl (6.2-12.0); Monocyte# 0.95 X10^3/uL; Monocyte% 7.9 % (0-10); NRBC Flagged by Analyzer 0 % (0-5); Neutrophil # 9.77 X10^3/uL (2.7-7.7); Neutrophil % 81.1 % (47-70); Platelet Count 246 K/mm3 (150-450); RBC Distribution Width CV 13.8 % (11.6-14.6); RBC Distribution Width SD 51.8 fl (35.1-43.9); Red Blood Count 4.26 M/mm3 (4.2-5.4)
[2024-05-22 13:43] LABS: D-Dimer Quantitative (DVT/PE) 0.48 FEU/ug/m (0.27-0.49)
[2024-05-22 13:50] LABS: BNP,B-Type NATRIURETIC PEPTIDE 220.6 pg/mL (0-100)
[2024-05-22 13:53] LABS: Anion Gap 8 (5-15); BUN 12 mg/dL (7-18); BUN/Creat Ratio 16.2 RATIO (10-20); Calcium,Total 9.3 mg/dL (8.5-10.1); Chloride 108 mmol/L (98-107); Creatinine, Serum 0.74 mg/dL (0.55-1.02); EST Glomerular Filtration Rate 83 mL/min (>60); Est Glom Filt Rate - Afr Amer 100 mL/min (>60); Estimated Creatinine Clearance 48.34 ml/min; Glucose 79 mg/dL (74-106); Potassium 3.8 mmol/L (3.5-5.1); Sodium Level 139 mmol/L (136-145); Troponin-I HS 6 pg/mL (3.0-54.0)
[2024-05-22] MEDS: Acetaminophen 500 MG Tablet 1000 MG PO (15:55)
[2024-05-22] MEDS: MethylPREDNISolone 125 MG/2 ML Vial IV (15:55)
[2024-05-22] MEDS: Albuterol 2.5 MG/3 ML VIAL.NEB. INHALATION (15:55)
--- NOTE | 2024-05-22 16:05 | HP.PCM.HOS_ITS ---
HPI - General General Date of Admission: 05/22/24 Date of Service: 05/22/24 Chief Complaint: Elevated blood pressure HPI Narrative VIGNESH PADILLA, is a 69 F with a significant history of COPD; hypertension; TIA; tobacco abuse; and heart failure with preserved ejection fraction who presented to the emergency department with elevated blood pressures. Reportedly patient went to see her business development analyst for her rheumatoid arthritis. At appointment patient's blood pressure was elevated with systolic blood pressures of 207. Her business development analyst advised her to go to emergency department. However patient did not heed to the call. Because patient's blood pressure remained elevated and also she felt malaise she came to emergency department. Further, she complains of mild shortness of breath above her baseline. She also have a cough that started about a week and a half ago. Her cough is dry. She attributes the cough to a new air conditioner that has been installed about. A culture was instilled about 2 weeks ago. At the emergency department patient was found to be hypoxic with oxygen saturation of 81%. Typically patient uses 2 L nasal cannula oxygen but is only at night. Further patient complains of pain under her left breast that started 3 days before presentation. The pain is intermittent. She describes it as sharp. [facility] Medical History Rheumatoid arthritis TIA (transient ischemic attack) Tobacco use COPD (chronic obstructive pulmonary disease) CHF (congestive heart failure) HLD (hyperlipidemia) HTN (hypertension) Small bowel obstruction Home Medications ?Medication ?Instructions ?Recorded ?Last Taken ?Type albuterol sulfate 2.5 mg/3 mL 2.5 mg inhalation Q4H PRN PRN Sob 04/28/19 05/22/24 History (0.083 %) solution for nebulization &/Or Wheezing albuterol sulfate 90 mcg/actuation 2 puff inhalation Q4H PRN PRN Sob 04/28/19 05/22/24 History aerosol inhaler &/Or Wheezing furosemide 40 mg tablet 40 mg PO DAILY water pill 04/28/19 06/15/23 History levothyroxine 50 mcg tablet 50 mcg PO DAILY thyroid 04/28/19 05/22/24 History montelukast 10 mg tablet 10 mg PO DAILY allergies 04/28/19 05/21/24 History nitroglycerin 0.4 mg sublingual 0.4 mg SL DAILY PRN PRN chest pain 04/28/19 Unknown History tablet buspirone 15 mg tablet 15 mg PO TID PRN anxiety/depression 06/18/23 05/22/24 History fluticasone fur. 100 mcg-umeclid 1 inh inhalation Q24H 06/18/23 05/22/24 History 62.5 mcg-vilant 25 mcg inhalat.powder (Trelegy Ellipta) folic acid 1 mg tablet 1 mg PO DAILY supplement 06/18/23 05/22/24 History gabapentin 800 mg tablet 800 mg PO QHS pain, restless leg 06/18/23 05/21/24 History syndrome hydroxychloroquine 200 mg tablet 200 mg PO DAILY rheumatoid 06/18/23 05/22/24 History arthritis methotrexate sodium 2.5 mg tablet 15 mg PO SA 06/18/23 05/21/24 History amitriptyline 10 mg tablet 10 mg PO QHS 05/22/24 05/21/24 History losartan 100 mg tablet 100 mg PO DAILY 05/22/24 05/22/24 History omeprazole 40 mg capsule,delayed 40 mg PO BID 05/22/24 05/22/24 History release Allergy/AdvReac Type Severity Reaction Status Date / Time tiotropium Allergy Mild Swelling Verified 05/22/24 13:01 codeine Allergy Anaphylaxis Verified 05/22/24 13:01 Penicillins (PCN) Allergy Anaphylaxis Verified 05/22/24 13:01 hydrochlorothiazide (hctz) AdvReac Unknown NEEDS Verified 05/22/24 13:01 FOLLOW-UP Family History Mother Breast cancer Father Heart disease Myocardial infarction Hypertension CAD (coronary artery disease) Surgical History Hx of tubal ligation History of cholecystectomy History of colon surgery Surgical History no surgical history no surgical history Social History (Updated 05/22/24 @ 18:18 by Holly Barr) Smoking Status: Current every day smoker tobacco type: cigarettes alcohol intake: current alcohol intake frequency: holidays/special occasions only substance use type: does not use ROS ROS Narrative Pertinent positives and pertinent negatives as noted in HPI. All other systems were reviewed and are negative Vital Signs Vital Signs Vital Signs: 05/22/24 13:01 05/22/24 13:01 05/22/24 13:03 Temperature 96.9 F L 96.9 F L Temperature Source Temporal Temporal Pulse Rate 105 H 105 H 105 H Respiratory Rate 26 H 24 H 24 H Respiratory Effort Respiratory Pattern Blood Pressure 222/88 H 222/88 H 222/88 H Blood Pressure Mean 132 132 132 Pulse Ox 81 81 81 Oxygen Delivery Method Room Air Room Air Room Air Oxygen Flow Rate (L/min) 05/22/24 13:03 05/22/24 13:05 05/22/24 13:34 Temperature Temperature Source Pulse Rate Respiratory Rate Respiratory Effort Short of Breath Respiratory Pattern Blood Pressure Blood Pressure Mean Pulse Ox 94 Oxygen Delivery Method Nasal Cannula Nasal Cannula Nasal Cannula Oxygen Flow Rate (L/min) 3 2 2 05/22/24 14:03 05/22/24 14:23 05/22/24 15:00 Temperature 98.6 F Temperature Source Oral Pulse Rate 76 68 Respiratory Rate 20 H 26 H Respiratory Effort Respiratory Pattern Blood Pressure 177/72 H 191/85 H Blood Pressure Mean 107 120 Pulse Ox 97 97 94 Oxygen Delivery Method Nasal Cannula Nasal Cannula Nasal Cannula Oxygen Flow Rate (L/min) 2 2 2 05/22/24 15:58 05/22/24 15:58 05/22/24 15:59 Temperature 98.6 F Temperature Source Pulse Rate 67 67 Respiratory Rate 20 H 27 H Respiratory Effort Respiratory Pattern Normal Blood Pressure 185/75 H Blood Pressure Mean 111 Pulse Ox 95 94 Oxygen Delivery Method Nasal Cannula Oxygen Flow Rate (L/min) 2 05/22/24 16:00 Temperature 98.6 F Temperature Source Oral Pulse Rate 66 Respiratory Rate 27 H Respiratory Effort Respiratory Pattern Blood Pressure 185/75 H Blood Pressure Mean 111 Pulse Ox 94 Oxygen Delivery Method Nasal Cannula Oxygen Flow Rate (L/min) 2 Weight Weight: 48.035 kg Body Mass Index (BMI) 20.7 Physical Exam Narrative Physical exam: General: Well-nourished, well-developed. Head: Normocephalic, atraumatic, no tenderness Eyes: Vision is grossly intact. EOMI ENT, no trauma, moist mucous membranes, no rhinorrhea Neck: Nontender, No thyromegaly. CVS: Regular rate and rhythm. S1-S2 present. No murmur, gallop or rub. Respiratory : clear to auscultation bilaterally, chest wall nontender Abdomen: Soft, nontender, nondistended, normal bowel sounds, no masses : Deferred Back: Nontender, no CVA tenderness, no midline spinal tenderness, deformities, step-offs Extremities: Nontender full range of motion, no trauma Skin: Normal color, no trauma, abrasions Neuro: Alert, oriented, cranial nerves II through XII grossly intact. Psychiatry: Normal mood. Normal affect. Not depressed. Not anxious. Results Lab / Micro Data 05/22/24 13:25 05/22/24 13:25 Labs: Laboratory Results - last 24 hr 05/22/24 13:25: WBC 12.0 H, RBC 4.26, Hgb 14.6, Hct 44.7, MCV 104.9 H, MCH 34.3 H, MCHC 32.7, RDW Std Deviation 51.8 H, RDW Coeff of Edouard 13.8, Plt Count 246, MPV 9.7, Immature Gran % (Auto) 0.500, Neut % (Auto) 81.1 H, Lymph % (Auto) 9.5 L, [place] % (Auto) 7.9, Eos % (Auto) 0.6, Baso % (Auto) 0.4, Absolute Neuts (auto) 9.8 H, Absolute Lymphs (auto) 1.14, Nucleated RBC % 0, D-Dimer Quant (PE/DVT) 0.48, Sodium 139, Potassium 3.8, Chloride 108 H, Carbon Dioxide 23.0, Anion Gap 8, BUN 12, Creatinine 0.74, Estim Creat Clear Calc 48.34, Est GFR (MDRD) Af Amer 100, Est GFR (MDRD) Non-Af 83, BUN/Creatinine Ratio 16.2, Glucose 79, Calcium 9.3, Troponin I High Sens 6, B-Natriuretic Peptide 220.6 H Imaging Radiology Impression Chest X-Ray 05/22/24 13:05 IMPRESSION: Emphysema. Chronic interstitial markings. Electronically Signed: Asya Gomez MD at 13:50 EDT , Assessment & Plan Assessment/Plan (1) HTN (hypertension): QUALIFIERS: Hypertension type: essential hypertension Qualified Code(s): I10 - Essential (primary) hypertension (2) Hypoxia: (3) Chest pain: QUALIFIERS: Chest pain type: other chest pain Qualified Code(s): R07.89 - Other chest pain (4) Hypertensive urgency: PLAN: Margarita PADILLA, is a 69 F with a significant history of COPD; hypertension; TIA; tobacco abuse; and heart failure with preserved ejection fraction who presented to the emergency department with elevated blood pressures; had mild shortness of breath above her baseline; dry cough and was found to be hypoxic. Acute on chronic hypoxia Etiology unclear as patient was not wheezing. Also she has no camelia edema. Telemetry given the emergency department. Prednisone 40 mg daily ordered. Schedule breathing treatments and as needed. She has been ordered. Hypertensive urgency Continue home blood pressure medications. Scheduled hydralazine added to regimen. IV hydralazine ordered. Trend. Chest pain Echocardiogram ordered. Place on a monitored bed at [facility] care unit Actual CXR image was independently interpreted. Results showed emphysema and chronic interstitial markings. Agrees with radiology interpretation. Visualized. No acute cardiopulmonary process was noted. Actual EKG tracing was independently visualized. EKG shows some T wave inversions in V1 and V2 which is unchanged from previous. ASA 81 mg p.o. daily ordered SL NTG 0.4 mg prn as needed for chest pain ordered Initial cardiac enzymes negative, trend. Nuclear stress test in the AM if the cardiac enzymes are negative DVT prophylaxis ordered. Advance care planning: Discussed with patient and family advanced directives as well as CODE STATUS. Explained various CODE STATUS: FULL CODE, DNR CCA, DNR CCA with no intubation, and DNR CC- and what each meant. Patient elected to be a full code with CPR and intubation if warranted. Order was placed. Surrogate decision maker is Haylie Feliz. Time spent on discussion 16 minutes. Time spent in the patient's overall evaluation,decision-making process, review of diagnostic data, adjustment of management, discussion with other providers, nursing and ancillary staff involved in patient's care documentation, 70 minutes. Charges/Coding Visit Charges Inpatient E&M: 16357 Init Hosp L3 Procedures Hospitalists Procedures: 61217 Advncd Care Plan 30 Min
--- NOTE | 2024-05-22 18:02 | EKG12_ITS ---
Test Reason : PRE OP Blood Pressure : / mmHG Vent. Rate : 071 BPM Atrial Rate : 071 BPM P-R Int : 148 ms QRS Dur : 088 ms QT Int : 432 ms P-R-T Axes : 075 -27 061 degrees QTc Int : 469 ms Normal sinus rhythm T wave abnormality, consider anterior ischemia Abnormal ECG When compared with ECG of 22-MAY-2024 19:08, MANUAL COMPARISON REQUIRED, DATA IS UNCONFIRMED Confirmed by ANAID CARMICHAEL, CLARISSE ([id number]), editor continuity and script CATINA GALDAMEZ ([id number]) on 05/24/2024 5:56:14 AM Referred By: Confirmed By:CLARISSE WORRELL MD
[2024-05-22] MEDS: Aspirin 81 MG TAB.CHEW 324 MG PO (18:30)
[2024-05-22] MEDS: hydrALAZINE 25 MG Tablet PO (18:30)
[2024-05-22 19:14] LABS: Troponin-I HS 8 pg/mL (3.0-54.0)
[2024-05-22] MEDS: Amitriptyline 10 MG Tablet PO (20:53)
[2024-05-22] MEDS: Gabapentin 800 MG Tablet PO (20:53)
[2024-05-22] MEDS: Pantoprazole Sodium 40 MG Tablet PO (20:53)
[2024-05-22] MEDS: Acetaminophen 325 MG Tablet 650 MG PO (20:54)
[2024-05-22] MEDS: MELATONIN 3 MG TABLET PO (20:56)
[2024-05-22 20:57] LABS: Troponin-I HS 7 pg/mL (3.0-54.0)
[2024-05-23] VITALS (7 sets, daily range): BP systolic 160–174; BP diastolic 64–70; PULSE 70–74; RESP 18–20; TEMP 36.3–36.6; O2SAT 92–96
[2024-05-23 01:12] LABS: Troponin-I HS 6 pg/mL (3.0-54.0)
--- NOTE | 2024-05-23 05:00 | EKG12_ITS ---
Test Reason : Blood Pressure : / mmHG Vent. Rate : 077 BPM Atrial Rate : 077 BPM P-R Int : 138 ms QRS Dur : 084 ms QT Int : 412 ms P-R-T Axes : 000 -26 139 degrees QTc Int : 466 ms Normal sinus rhythm Cannot rule out Anterior infarct , age undetermined Abnormal ECG When compared with ECG of 22-MAY-2024 13:12, MANUAL COMPARISON REQUIRED, DATA IS UNCONFIRMED Confirmed by ANAID CARMICHAEL, CLARISSE ([id number]), newspaper managing editor CATINA GALDAMEZ ([id number]) on 05/24/2024 5:56:30 AM Referred By: Confirmed By:CLARISSE WORRELL MD
[2024-05-23] MEDS: Losartan Potassium 100 MG Tablet PO (05:02)
[2024-05-23] MEDS: Aspirin E.C. 81 MG Tablet PO (05:02)
[2024-05-23] MEDS: Levothyroxine 50 MCG Tablet PO (05:02)
--- NOTE | 2024-05-23 05:55 | ECHOD_ITS ---
Reason For Study: CHEST PAIN Procedure This was a 2D Doppler, Color Flow transthoracic echocardiogram. Exam performed in department. Left Ventricle Normal LV size. Left ventricular systolic function is normal. The estimated ejection fraction is 60 %. Stage 1 diastolic dysfunction. No regional wall motion abnormalities noted. Right Ventricle Normal RV size. Normal systolic function. Atria Normal left atrium. Normal right atrium. Mitral Valve Normal mitral valve. Tricuspid Valve Normal tricuspid valve. Aortic Valve Normal aortic valve. Pulmonic Valve Normal pulmonic valve. Great Vessels Normal aortic root. The pulmonary artery is normal size. Normal inferior vena cava. Pericardium/Pleural No pericardial effusion. MMode/2D Measurements & Calculations LVIDd: 4.8 cm IVSd: 1.0 cm LVOT diam: 1.8 cm LVIDs: 3.2 cm LVPWd: 0.90 cm LVOT area: 2.6 cm2 RVDd: 3.3 cm FS: 33.0 % Ao root diam: 3.0 cm LAV(MOD-bp): 40.3 ml LVAd ap4: 20.5 cm2 LAV(MOD-bp) Indexed: 28.4 ml/m2 LVLd ap4: 6.5 cm LAV(MOD-sp2): 41.4 ml EDV(MOD-sp4): 52.4 ml LAV(MOD-sp4): 38.1 ml EDV(sp4-el): 54.4 ml LVAs ap4: 10.5 cm2 LVLs ap4: 5.3 cm ESV(MOD-sp4): 17.3 ml ESV(sp4-el): 17.5 ml EF(MOD-sp4): 67.0 % EF(sp4-el): 67.9 % LVAd ap2: 20.9 cm2 SV(MOD-sp4): 35.1 ml SV(MOD-sp2): 31.9 ml LVLd ap2: 6.9 cm EDV(MOD-sp2): 52.5 ml EDV(sp2-el): 53.7 ml LVAs ap2: 11.6 cm2 LVLs ap2: 5.6 cm ESV(MOD-sp2): 20.6 ml ESV(sp2-el): 20.5 ml EF(MOD-sp2): 60.7 % SV(sp4-el): 36.9 ml LA dimension(2D): 3.4 cm LA A4 area: 15.6 cm2 RA A4 area: 10.1 cm2 TAPSE: 1.7 cm Time Measurements MV dec time: 0.15 sec Doppler Measurements & Calculations MV E max aleksandr: 91.2 cm/sec Lat Peak E' Aleksandr: 9.0 cm/sec Med Peak E' Aleksandr: 6.7 cm/sec MV A max aleksandr: 94.5 cm/sec E/E' lat: 10.1 E/E' med: 13.7 MV E/A: 0.96 Ao V2 max: 123.3 cm/sec LV V1 max: 115.8 cm/sec MV dec slope: 593.5 cm/sec2 Ao max P.1 mmHg LV V1 max P.4 mmHg Ao V2 mean: 84.9 cm/sec LV V1 mean P.8 mmHg Ao mean P.2 mmHg LV V1 mean: 77.0 cm/sec Ao V2 VTI: 26.4 cm LV V1 VTI: 27.5 cm AV (velocity ratio): 1.0 CRISTOBAL(I,D): 2.7 cm2 CRISTOBAL(V,D): 2.4 cm2 SV(LVOT): 70.8 ml PA V2 max: 79.2 cm/sec PA max PG (full): 0.47 mmHg ECHO/Echo Complete Interpretation Summary Normal LV size. Left ventricular systolic function is normal. The estimated ejection fraction is 60 %. Stage 1 diastolic dysfunction. Structurally normal valves. Ordering Physician: Julio Cesar Choe Performed By: Yessenia Colby RDCS and Student
[2024-05-23 05:59] LABS: Absolute Lymphocyte Count 1.01 X10^3/uL (0.83-4.51); Absolute Neutrophil Count 9.2 X10^3/uL (2.0-7.7); Basophil# 0.03 X10^3/uL; Basophil% 0.3 % (0-1); Hematocrit 42.3 % (37-47); Hemoglobin 13.7 g/dL (12.0-15.0); Lymphocyte # 1.01 X10^3/ul (0.83-4.51); Lymphocyte % 9.5 % (19-41); Mean Corp Hgb Conc 32.4 g/dL (32-36); Mean Corpuscular Hgb 33.7 pg (27.0-32.0); Mean Corpuscular Volume 103.9 fL (81-99); Mean Platelet Vol. 10.5 fl (6.2-12.0); Monocyte# 0.37 X10^3/uL; Monocyte% 3.5 % (0-10); NRBC Flagged by Analyzer 0 % (0-5); Neutrophil # 9.15 X10^3/uL (2.7-7.7); Platelet Count 275 K/mm3 (150-450); RBC Distribution Width CV 13.5 % (11.6-14.6); RBC Distribution Width SD 50.9 fl (35.1-43.9); Red Blood Count 4.07 M/mm3 (4.2-5.4); White Blood Count 10.6 K/mm3 (4.4-11.0)
[2024-05-23 06:15] LABS: Anion Gap 8 (5-15); BUN 16 mg/dL (7-18); BUN/Creat Ratio 25.6 RATIO (10-20); Chloride 108 mmol/L (98-107); Creatinine, Serum 0.63 mg/dL (0.55-1.02); EST Glomerular Filtration Rate 101 mL/min (>60); Est Glom Filt Rate - Afr Amer 122 mL/min (>60); Estimated Creatinine Clearance 48.34 ml/min; Glucose 106 mg/dL (74-106); Potassium 4.1 mmol/L (3.5-5.1); Sodium Level 136 mmol/L (136-145)
[2024-05-23] MEDS: Montelukast 10 MG Tablet PO (08:00)
[2024-05-23] MEDS: Acetaminophen 325 MG Tablet 650 MG PO (08:00)
[2024-05-23] MEDS: Folic Acid 1 MG Tablet PO (08:00)
--- NOTE | 2024-05-23 08:49 | PCM.PN.HOSP ---
Reason for Visit Reason for Visit: Diagnoses Essential (primary) hypertension (05/22/24) Hypertensive urgency (05/22/24) Other chest pain (05/22/24) Hypoxemia (05/22/24) Subjective Subjective Patient is a 69-year-old who presented complaining of chest pain and shortness of breath. Patient was found to be hypoxic in the emergency department with oxygen saturation dropping to 81% on room air with ambulation. Subsequently admitted for inpatient Objective Data Objective Data Vital Signs: Vital Signs Temp Pulse Resp BP Pulse Ox O2 Del Method O2 Flow Rate 97.8 F 73 18 166/69 H 92 Nasal Cannula 2 05/23/24 07:55 05/23/24 07:55 05/23/24 07:55 05/23/24 07:55 05/23/24 08:05 05/23/24 08:05 05/23/24 08:05 Oxygen Flow Rate (L/min) 2 Oxygen Delivery Method Nasal Cannula Weight: 48.035 kg Body Mass Index (BMI) 20.7 Lab / Micro Data 05/23/24 05:32 05/23/24 05:32 Labs: Laboratory Results - last 24 hr 05/22/24 13:25: WBC 12.0 H, RBC 4.26, Hgb 14.6, Hct 44.7, MCV 104.9 H, MCH 34.3 H, MCHC 32.7, RDW Std Deviation 51.8 H, RDW Coeff of Edouard 13.8, Plt Count 246, MPV 9.7, Immature Gran % (Auto) 0.500, Neut % (Auto) 81.1 H, Lymph % (Auto) 9.5 L, [place] % (Auto) 7.9, Eos % (Auto) 0.6, Baso % (Auto) 0.4, Absolute Neuts (auto) 9.8 H, Absolute Lymphs (auto) 1.14, Nucleated RBC % 0, D-Dimer Quant (PE/DVT) 0.48, Sodium 139, Potassium 3.8, Chloride 108 H, Carbon Dioxide 23.0, Anion Gap 8, BUN 12, Creatinine 0.74, Estim Creat Clear Calc 48.34, Est GFR (MDRD) Af Amer 100, Est GFR (MDRD) Non-Af 83, BUN/Creatinine Ratio 16.2, Glucose 79, Calcium 9.3, Troponin I High Sens 6, B-Natriuretic Peptide 220.6 H 05/22/24 18:50: Troponin I High Sens 8 05/22/24 20:33: Troponin I High Sens 7 05/23/24 00:32: Troponin I High Sens 6 05/23/24 05:32: WBC 10.6, RBC 4.07 L, Hgb 13.7, Hct 42.3, MCV 103.9 H, MCH 33.7 H, MCHC 32.4, RDW Std Deviation 50.9 H, RDW Coeff of Edouard 13.5, Plt Count 275, MPV 10.5, Immature Gran % (Auto) 0.700, Neut % (Auto) 86.0 H, Lymph % (Auto) 9.5 L, [place] % (Auto) 3.5, Eos % (Auto) 0.0, Baso % (Auto) 0.3, Absolute Neuts (auto) 9.2 H, Absolute Lymphs (auto) 1.01, Nucleated RBC % 0, Sodium 136, Potassium 4.1, Chloride 108 H, Carbon Dioxide 20.0 L, Anion Gap 8, BUN 16, Creatinine 0.63, Estim Creat Clear Calc 48.34, Est GFR (MDRD) Af Amer 122, Est GFR (MDRD) Non-Af 101, BUN/Creatinine Ratio 25.6 H, Glucose 106, Calcium 9.0 Micro: Microbiology 05/22/24 15:59 Mucosa - Nose SARS-CoV-2, Influenza & RSV (PCR) - Final Radiography Diagnostic Testing: Radiology Impression Chest X-Ray 05/22/24 13:05 IMPRESSION: Emphysema. Chronic interstitial markings. Electronically Signed: Asya Gomez MD at 13:50 EDT , Physical Exam Narrative GENERAL: cooperative HEENT: Atraumatic; normocephalic EYES; Anicteric, Normal Conjunctiva NECK; supple, normal thyroid, RESPIRATORY: Diminished to auscultation CARDIOVASCULAR: Regular S1 S2, GI: soft, normoactive bowel sounds, : No Renal angle tenderness; EXTREMITIES: No edema, no clubbing, MUSCULOSKELETAL: no muscle wasting NEURO: Awake; no lateralizing signs. SKIN: No Rash PSYCH; Flat affect Assessment & Plan Assessment/Plan (1) HTN (hypertension): QUALIFIERS: Hypertension type: essential hypertension Qualified Code(s): I10 - Essential (primary) hypertension (2) Hypoxia: (3) Chest pain: QUALIFIERS: Chest pain type: other chest pain Qualified Code(s): R07.89 - Other chest pain (4) Hypertensive urgency: PLAN: Plan Patient is a 69-year-old who presented complaining of chest pain and shortness of breath. Patient was found to be hypoxic in the emergency department with oxygen saturation dropping to 81% on room air with ambulation. Subsequently admitted for inpatient 1. Acute on chronic hypoxia ? Suspected to be secondary to COPD with acute exacerbation managed with bronchodilator treatment supplemental oxygen systemic steroids 2. Chest pain ? Patient was placed on a monitored bed NH was ruled out with serial cardiac enzymes subsequently underwent a nuclear stress test which was negative for stress-induced ischemia 3. Chronic hypoxic respiratory failure ? Secondary to COPD patient is on 2 L oxygen continue with also continued her bronchodilator treatment 4. Chronic congestive heart failure With preserved ejection fraction; -Will continue patient diuretic therapy 5. Acute hypertensive emergency ? Patient blood pressure was markedly elevated with systolic greater than 228. Home medications continued in addition to hydralazine as needed for systolic blood pressure greater than 160 patient blood pressure control continues to improve prescription written for hydralazine on discharge 6. Hypothyroidism - Patient is on levothyroxine home dose continued 7. Dyslipidemia -Patient is on statin therapy, continued at home dose 8. Rheumatoid arthritis ? Patient was found hydroxychloroquine as well as methotrexate 9. GERD ? Patient is on PPI 10. Tobacco dependence - Counseled on cessation, offered nicotine patch for tobacco cravings 11. DVT prophylaxis ? SC Lovenox Time spent in the patient's overall evaluation,decision-making process, review of diagnostic data, adjustment of management, discussion with other providers, nursing nursing and ancillary staff involved in patient's care documentation, 40 Minutes
[2024-05-23] MEDS: Furosemide 40 MG Tablet PO (11:08)
[2024-05-23] MEDS: predniSONE 20 MG Tablet 40 MG PO (11:09)
[2024-05-23] MEDS: Hydroxychloroquine 200 MG Tablet PO (11:09)
[2024-05-23] MEDS: Pantoprazole Sodium 40 MG Tablet PO (11:09)
--- NOTE | 2024-05-23 11:42 | CASEMGMT ---
BRISSA DELA CRUZ Face to Face with patient for initial transition planning/care coordination assessment. RN CM introduced self and role at [facility]. Patient lying in bed, alert and oriented. Patient willing to participate in assessment and is able to answer all questions appropriately. Care providers, pharmacy, and demographics verified. PCP: [facility] Specialists: Snehal, radio electronics technician; Ignacio Schroeder, nondestructive tester; Preferred Pharmacy: [facility] Insurance: [facility] Dual MCR Prescription Benefit: yes Living Will/HPOA: none LNOK: daughters Living Arrangements: Patient lives alone in a single story home with ramps to enter the home. Patient states she is independent at home. Transportation: daughters DME/HHC: Patient has nebulizer, pulse ox, BP cuff, and home oxygen with portability through [employer] at 3lpm continuously. Patient states she smoke but has cut back from 2.5PPD to just 1/2 PPD of cigarettes. Patient wishes to discharge home, denies need for home health at this time. Patient states she has no further needs or concerns at this time. CM to follow for discharge planning needs that may arise. Disposition Plan: Patient to discharge home with family support and follow-up plans in place. Catrina DUARTE, RN, CM
--- NOTE | 2024-05-23 12:37 | STRESSREP ---
Stress Test Report Pharmacologic myocardial perfusion stress test. 69-year-old lady with a history of chest pain and hypertensive urgency Resting EKG demonstrates sinus rhythm with a rate of 64 bpm. Resting blood pressure is 174/80 mmHg. 0.4 mg of regadenoson was infused per usual protocol followed by rapid intravenous saline flush injection. Continuous EKG monitoring was performed. The maximum heart rate was 81 bpm which was 53% of max impacted heart rate the maximum workload was 1 metabolic equivalent. At rest there were no ST or T wave changes noted to suggest ischemia and at peak infusion nonspecific ST changes were noted which did not meet the criteria for ischemia. No clinical angina is noted. The final blood pressure was 162/72 mmHg. Myocardial perfusion protocol. 12 mCi of technetium 99m sestamibi was injected at rest. 0.4 mg of regadenoson was infused per usual protocol. At peak infusion 36 mCi of technetium 99m sestamibi was injected stress images were obtained stress and rest images were reconstructed and compared in the short axis vertical long and horizontal long axis. Gated images were also obtained. Perfusion SPECT analysis: Review of the stress images demonstrate normal uptake of tracer noted in all areas of the myocardium. The resting images similar demonstrated normal uptake of tracer noted in all areas of the myocardium. No areas of reversibility are noted to suggest ischemia and no previous infarct is noted. Gated SPECT analysis: The gated ejection fraction is 74. Conclusion: Normal pharmacologic myocardial perfusion stress test. Preserved ejection fraction.
--- NOTE | 2024-05-23 13:18 | DS.PCM_ITS ---
Providers Date of Admission: 05/22/24 Date of Discharge: 06/29/24 Primary Care Physician: EVELIA Ling Reason For Visit: HYPERTENSIVE URGENCY Diagnosis Discharge Diagnosis (1) HTN (hypertension): Status: Chronic Code(s): I10 - Essential (primary) hypertension Qualifiers: Hypertension type: essential hypertension Qualified Code(s): I10 - Essential (primary) hypertension (2) Hypoxia: Status: Resolved Code(s): R09.02 - Hypoxemia (3) Chest pain: Status: Acute Code(s): R07.9 - Chest pain, unspecified Qualifiers: Chest pain type: other chest pain Qualified Code(s): R07.89 - Other chest pain (4) Hypertensive urgency: Status: Acute Code(s): I16.0 - Hypertensive urgency Plan Patient is a 69-year-old who presented complaining of chest pain and shortness of breath. Patient was found to be hypoxic in the emergency department with oxygen saturation dropping to 81% on room air with ambulation. Subsequently admitted for inpatient 1. Acute on chronic hypoxia ? Suspected to be secondary to COPD with acute exacerbation managed with bronchodilator treatment supplemental oxygen systemic steroids 2. Chest pain ? Patient was placed on a monitored bed [place] was ruled out with serial cardiac enzymes subsequently underwent a nuclear stress test which was negative for stress-induced ischemia 3. Chronic hypoxic respiratory failure ? Secondary to COPD patient is on 2 L oxygen continue with also continued her bronchodilator treatment 4. Chronic congestive heart failure With preserved ejection fraction; -Will continue patient diuretic therapy 5. Acute hypertensive emergency ? Patient blood pressure was markedly elevated with systolic greater than 228. Home medications continued in addition to hydralazine as needed for systolic blood pressure greater than 160 patient blood pressure control continues to improve prescription written for hydralazine on discharge 6. Hypothyroidism - Patient is on levothyroxine home dose continued 7. Dyslipidemia -Patient is on statin therapy, continued at home dose 8. Rheumatoid arthritis ? Patient was found hydroxychloroquine as well as methotrexate 9. GERD ? Patient is on PPI 10. Tobacco dependence - Counseled on cessation, offered nicotine patch for tobacco cravings 11. DVT prophylaxis ? SC Lovenox Time spent in the patient's overall evaluation,decision-making process, review of diagnostic data, adjustment of management, discussion with other providers, nursing nursing and ancillary staff involved in patient's care documentation, 40 Minutes Medications at Discharge Home Medications albuterol sulfate 2.5 mg/3 mL (0.083 %) solution for nebulization 2.5 mg inhalation Q4H PRN PRN Sob &/Or Wheezing 04/28/19 albuterol sulfate 90 mcg/actuation aerosol inhaler 2 puff inhalation Q4H PRN PRN Sob &/Or Wheezing 04/28/19 furosemide 40 mg tablet 40 mg PO DAILY water pill 04/28/19 levothyroxine 50 mcg tablet 50 mcg PO DAILY thyroid 04/28/19 montelukast 10 mg tablet 10 mg PO DAILY allergies 04/28/19 nitroglycerin 0.4 mg sublingual tablet 0.4 mg SL DAILY PRN PRN chest pain 04/28/19 buspirone 15 mg tablet 15 mg PO TID PRN anxiety/depression 06/18/23 fluticasone fur. 100 mcg-umeclid 62.5 mcg-vilant 25 mcg inhalat.powder (Trelegy Ellipta) 1 inh inhalation Q24H 06/18/23 folic acid 1 mg tablet 1 mg PO DAILY supplement 06/18/23 gabapentin 800 mg tablet 800 mg PO QHS pain, restless leg syndrome 06/18/23 hydroxychloroquine 200 mg tablet 200 mg PO DAILY rheumatoid arthritis 06/18/23 methotrexate sodium 2.5 mg tablet 15 mg PO SA 06/18/23 amitriptyline 10 mg tablet 10 mg PO QHS 05/22/24 losartan 100 mg tablet 100 mg PO DAILY 05/22/24 omeprazole 40 mg capsule,delayed release 40 mg PO BID 05/22/24 hydralazine 50 mg tablet 50 mg PO BID #120 tabs 05/23/24 prednisone 20 mg tablet 40 mg (2 x 20 mg) PO BREAKFAST #10 tabs 05/23/24 Physical Exam Narrative GENERAL: cooperative HEENT: Atraumatic; normocephalic EYES; Anicteric, Normal Conjunctiva NECK; supple, normal thyroid, RESPIRATORY: Diminished to auscultation CARDIOVASCULAR: Regular S1 S2, GI: soft, normoactive bowel sounds, : No Renal angle tenderness; EXTREMITIES: No edema, no clubbing, MUSCULOSKELETAL: no muscle wasting NEURO: Awake; no lateralizing signs. SKIN: No Rash PSYCH; Flat affect Weight / BMI Weight Weight: 48.035 kg Body Mass Index (BMI) 20.7 ABG / Lab / Microbiology Data 05/23/24 05:32 05/23/24 05:32 Laboratory: Laboratory Results - last 24 hr 05/22/24 13:25: WBC 12.0 H, RBC 4.26, Hgb 14.6, Hct 44.7, MCV 104.9 H, MCH 34.3 H, MCHC 32.7, RDW Std Deviation 51.8 H, RDW Coeff of Edouard 13.8, Plt Count 246, MPV 9.7, Immature Gran % (Auto) 0.500, Neut % (Auto) 81.1 H, Lymph % (Auto) 9.5 L, Cedar % (Auto) 7.9, Eos % (Auto) 0.6, Baso % (Auto) 0.4, Absolute Neuts (auto) 9.8 H, Absolute Lymphs (auto) 1.14, Nucleated RBC % 0, D-Dimer Quant (PE/DVT) 0.48, Sodium 139, Potassium 3.8, Chloride 108 H, Carbon Dioxide 23.0, Anion Gap 8, BUN 12, Creatinine 0.74, Estim Creat Clear Calc 48.34, Est GFR (MDRD) Af Amer 100, Est GFR (MDRD) Non-Af 83, BUN/Creatinine Ratio 16.2, Glucose 79, Calcium 9.3, Troponin I High Sens 6, B-Natriuretic Peptide 220.6 H 05/22/24 18:50: Troponin I High Sens 8 05/22/24 20:33: Troponin I High Sens 7 05/23/24 00:32: Troponin I High Sens 6 05/23/24 05:32: WBC 10.6, RBC 4.07 L, Hgb 13.7, Hct 42.3, MCV 103.9 H, MCH 33.7 H, MCHC 32.4, RDW Std Deviation 50.9 H, RDW Coeff of Edouard 13.5, Plt Count 275, MPV 10.5, Immature Gran % (Auto) 0.700, Neut % (Auto) 86.0 H, Lymph % (Auto) 9.5 L, Cedar % (Auto) 3.5, Eos % (Auto) 0.0, Baso % (Auto) 0.3, Absolute Neuts (auto) 9.2 H, Absolute Lymphs (auto) 1.01, Nucleated RBC % 0, Sodium 136, Potassium 4.1, Chloride 108 H, Carbon Dioxide 20.0 L, Anion Gap 8, BUN 16, Creatinine 0.63, Estim Creat Clear Calc 48.34, Est GFR (MDRD) Af Amer 122, Est GFR (MDRD) Non-Af 101, BUN/Creatinine Ratio 25.6 H, Glucose 106, Calcium 9.0 Microbiology: Microbiology 05/22/24 15:59 Mucosa - Nose SARS-CoV-2, Influenza & RSV (PCR) - Final Radiography Diagnostic Testing: Radiology Impression Chest X-Ray 05/22/24 13:05 IMPRESSION: Emphysema. Chronic interstitial markings. Electronically Signed: Asya Gomez MD at 13:50 EDT , D/C Instructions Discharge Diet: No restrictions Discharge Activity: Return to Normal Activity Call your doctor if you observe: Fever of 101 or Higher, Shortness of breath, Fainting spells and Chest pain Meaningful Use Info Meaningful Use Meaningful Use Diagnoses (Choose all that apply): None applicable Ischemic Stroke Statin Dosing Therapy Reference: STATIN DOSE THERAPY REFERENCE: * Patients > 75 years receive moderate or high dose statin therapy. * Patients 75 years or YOUNGER should receive HIGH intensity statin dose unless contraindicated. You will be required to document reason for non-treatment if statin daily dose does not meet guidelines. HIGH DOSE STATIN THERAPY DAILY Atorvastatin > than or = to 40 mg Rosuvastatin > than or = to 20 mg Amlodipine + Atorvastatin > than or = to 2.5/40 mg Ezetimibe + Simvastatin 10/80 mg Simvastatin 80mg Discharge Plan Admission Admit Date/Time: 05/22/24 16:12 Attending Provider: Martin Wilson Primary Care Provider: Salvatore Mathews Consulting Providers: Julio Cesar Choe Discharge Orders/Prescriptions Prescriptions: New hydralazine 50 mg tablet 50 mg PO BID Qty: 120 0RF prednisone 20 mg Tablet 40 mg PO BREAKFAST Qty: 10 0RF Continued furosemide 40 MG tablet 40 mg PO DAILY albuterol sulfate 2.5 MG/3 ML solution for nebulization 2.5 mg inhalation Q4H PRN PRN (Reason: Sob &/Or Wheezing) levothyroxine 50 MCG tablet 50 mcg PO DAILY nitroglycerin 0.4 MG tablet, sublingual 0.4 mg SL DAILY PRN PRN (Reason: chest pain) montelukast 10 MG tablet 10 mg PO DAILY albuterol sulfate 1 INHALER inhaler 2 puff inhalation Q4H PRN PRN (Reason: Sob &/Or Wheezing) buspirone 15 mg tablet 15 mg PO TID PRN folic acid 1 mg tablet 1 mg PO DAILY Patient Comments: TAKE 1 TABLET BY MOUTH ONCE DAILY gabapentin 800 mg tablet 800 mg PO QHS Patient Comments: TAKE 1 TABLET BY MOUTH ONCE DAILY hydroxychloroquine 200 mg tablet 200 mg PO DAILY Patient Comments: TAKE 1 TABLET BY MOUTH ONCE DAILY methotrexate sodium 2.5 mg tablet 15 mg PO SA Patient Comments: TAKE 6 TABLETS BY MOUTH ONCE A WEEK DIRECTED Trelegy Ellipta 100-62.5-25 mcg blister with device 1 inh INHALATION Q24H omeprazole 40 mg capsule,delayed release(DR/EC) 40 mg PO BID losartan 100 mg tablet 100 mg PO DAILY amitriptyline 10 mg tablet 10 mg PO QHS Referrals / Follow Up: Salvatore Mathews PA [Primary Care Provider] - Within 1 Week Disposition Disposition (needs filled in before D/C Order can be placed): Home, Self Care Charges/Coding Visit Charges Inpatient E&M: 61016 Disch Hosp >30min
--- NOTE | 2024-05-23 13:48 | CASEMGMT ---
Patient has order for discharge. RN CM in to discuss needs at discharge. Patient denies needs at discharge. Patient states daughter will bring oxygen tank from home for at discharge. Patient had no further questions of concerns.
[2024-05-23] MEDS: hydrALAZINE 25 MG Tablet PO (14:14)
--- NOTE | 2024-05-23 14:35 | PHA.DC_ITS ---
Pharmacy [facility] has performed discharge medication reconciliation and counseling for this patient. 1. HYDRALAZINE 50MG PO BID 2. PREDNISONE 40MG PO BREAKFAST X 5 DAYS The patient's discharge medication list was reviewed for discrepancies and discrepancies were resolved. The patient was counseled on the following discharge medications and changes in medications for homegoing were reviewed. The Reason for Use, instructions for use, and potential side effects were reviewed for all new medications. The patient's questions regarding all of their medications were answered. The patient was able to verbally demonstrate an understanding of their discharge medications. Medications at Discharge Home Medications albuterol sulfate 2.5 mg/3 mL (0.083 %) solution for nebulization 2.5 mg inhalation Q4H PRN PRN Sob &/Or Wheezing 04/28/19 albuterol sulfate 90 mcg/actuation aerosol inhaler 2 puff inhalation Q4H PRN PRN Sob &/Or Wheezing 04/28/19 furosemide 40 mg tablet 40 mg PO DAILY water pill 04/28/19 levothyroxine 50 mcg tablet 50 mcg PO DAILY thyroid 04/28/19 montelukast 10 mg tablet 10 mg PO DAILY allergies 04/28/19 nitroglycerin 0.4 mg sublingual tablet 0.4 mg SL DAILY PRN PRN chest pain 04/28/19 buspirone 15 mg tablet 15 mg PO TID PRN anxiety/depression 06/18/23 fluticasone fur. 100 mcg-umeclid 62.5 mcg-vilant 25 mcg inhalat.powder (Trelegy Ellipta) 1 inh inhalation Q24H breathing 06/18/23 folic acid 1 mg tablet 1 mg PO DAILY supplement 06/18/23 gabapentin 800 mg tablet 800 mg PO QHS pain, restless leg syndrome 06/18/23 hydroxychloroquine 200 mg tablet 200 mg PO DAILY rheumatoid arthritis 06/18/23 methotrexate sodium 2.5 mg tablet 15 mg PO SA arthritis 06/18/23 amitriptyline 10 mg tablet 10 mg PO QHS depression 05/22/24 losartan 100 mg tablet 100 mg PO DAILY blood pressure 05/22/24 omeprazole 40 mg capsule,delayed release 40 mg PO BID acid reflux 05/22/24 hydralazine 50 mg tablet 50 mg PO BID #120 tabs 05/23/24 prednisone 20 mg tablet 40 mg (2 x 20 mg) PO BREAKFAST #10 tabs 05/23/24
== END 2024-05-23 14:39 | disposition home or self-care (01) | DRG 191 ==
LOC: ED 14:31 → PCU 17:15
PROVIDERS: Admitting Provider Hospitalist; Emergency Provider Student in an Organized Health Care Education/Training Program; PCP Physician Assistant; Visit Provider Internal Medicine
DX: J44.1 Chronic obstructive pulmonary disease with (acute) exacerbation (principal); I16.1 Hypertensive emergency; J96.11 Chronic respiratory failure with hypoxia; I50.32 Chronic diastolic (congestive) heart failure; I11.0 Hypertensive heart disease with heart failure; J43.9 Emphysema, unspecified; M06.9 Rheumatoid arthritis, unspecified; E03.9 Hypothyroidism, unspecified; E78.5 Hyperlipidemia, unspecified; K21.9 Gastro-esophageal reflux disease without esophagitis; F17.210 Nicotine dependence, cigarettes, uncomplicated; R07.89 Other chest pain; Z11.52 Encounter for screening for COVID-19; Z79.51 Long term (current) use of inhaled steroids; Z79.890 Hormone replacement therapy; Z79.899 Other long term (current) drug therapy
CPT/HCPCS: 36415; 71045; 78452; 80048; 83880; 84484; 85025; 85379; 87631; 93005; 93017; 93306; 94640; 94668; 99285; A9500; A4216; J2785